=== PATIENT | male | born 1960 | race Caucasian/White ===

== ENCOUNTER → 2017-06-04 | Outpatient (CLI) | payer OTHER ==
--- NOTE | 2017-06-04 10:25 | ECHOF ---
Referral Reason:I50.40 heart failure MEASUREMENTS -------- HEIGHT: 188.0 cm WEIGHT: 120.2 kg BP: RVIDd: 3.8 cm (< 3.3) IVSd: 1.2 cm (0.6 - 1.1) LVIDd: 5.5 cm (3.9 - 5.3) LVPWd: 1.6 cm (0.6 - 1.1) IVSs: 1.4 cm LVIDs: 5.2 cm LVPWs: 1.4 cm LA Diam: 4.3 cm (2.7 - 3.8) LAESV Index (A-L): 37.66 ml/m Ao Diam: 4.4 cm (2.0 - 3.7) AV Cusp: 2.4 cm (1.5 - 2.6) LA Diam: 3.6 cm (2.7 - 3.8) MV EXCURSION: 23.427 mm (> 18.000) MV EF SLOPE: 110 mm/s (70 - 150) EPSS: 0.3 cm MV E Raymundo: 0.56 m/s MV DecT: 190 ms MV A Raymundo: 0.52 m/s MV E/A Ratio: 1.08 RAP: 5.00 mmHg RVSP: 15.10 mmHg FINDINGS -------- Sinus rhythm. This was a technically good study. The left ventricular size is normal. There is mild concentric left ventricular hypertrophy. Overa ll left ventricular systolic function is normal with, an EF between 55 - 60 %. The right ventricle is normal in size. LA is moderately dilated 34-39 ml/m2 The right atrial size is normal. The aortic valve is trileaflet, and appears structurally normal. No aortic stenosis or regurgitation. Mild mitral regurgitation is present. Mild tricuspid regurgitation present. There is no evidence of pulmonary hypertension. The right v entricular systolic pressure, as measured by Doppler, is 15.10mmHg. There is no pulmonic regurgitation present. The aortic root size is normal. There is no pericardial effusion. CONCLUSIONS -------- 1. The left ventricular size is normal. 2. There is mild concentric left ventricular hypertrophy. 3. Overall left ventricular systolic function is normal with, an EF between 55 - 60 %. 4. LA is moderately dilated 34-39 ml/m2 5. The aortic valve is trileaflet, and appears structurally normal. No aortic stenosis or regurgitati on. 6. Mild mitral regurgitation is present. 7. Mild tricuspid regurgitation present. 8. There is no evidence of pulmonary hypertension. 9. The right ventricular systolic pressure, as measured by Doppler, is 15.10mmHg. 10. There is no pulmonic regurgitation present. 11. The aortic root size is normal. 12. There is no pericardial effusion. SERVICE DEPARTMENT MANAGER: Delfina Saldaña RDCS
== END | disposition home or self-care (01) ==
LOC: RADECHMAIN 08:17
DX: I08.1 Rheumatic disorders of both mitral and tricuspid valves (principal); I50.40 Unspecified combined systolic (congestive) and diastolic (congestive) heart failure
CPT/HCPCS: 93306

== ENCOUNTER → 2017-07-13 | Outpatient (CLI) | payer OTHER ==
--- NOTE | 2017-07-13 08:49 | US ---
EXAMINATION TYPE: US mass soft tissue chest/back DATE OF EXAM: 07/13/2017 COMPARISON: NONE CLINICAL HISTORY: E88.2 LIPOMA; Left upper clavicle palpable x months and increasing in size per jt ent. At patient's palpable at left clavicle is oval hypoechoic solid mass = 0.6 x 0.5 x 0.3cm and area is compared to normals right clavicle at same level. IMPRESSION: Solid, avascular 5 mm area corresponding the patient's palpable abnormality seen adjacen t to the left clavicle is of uncertain etiology and could represent an abnormal lymph node or resolvi ng hematoma. CT chest w con could be performed for better anatomic delineation and characterization.
== END | disposition home or self-care (01) ==
LOC: RADUSWWP 08:00
PROVIDERS: ATTEND Physician Assistant Medical
DX: E88.2 Lipomatosis, not elsewhere classified (principal)

== ENCOUNTER → 2017-08-05 | Outpatient (CLI) | payer OTHER ==
--- NOTE | 2017-08-06 07:03 | CT ---
EXAMINATION TYPE: CT chest w con DATE OF EXAM: 08/05/2017 COMPARISON: NONE HISTORY: Lump to left upper chest area. Lipomatosis per order. CT DLP: 636 mGycm Automated exposure control for dose reduction was used. CONTRAST: CT scan of the chest is performed with IV Contrast, patient injected with 100ml mL of Isovue 300. FINDINGS: LUNGS: There is 4 x 2 mm nodule anterolateral right midlung axial image 32. There is 6 x 4 mm calcifi ed right upper lobe nodule axial image 20. No suspicious greater than 5 mm parenchymal nodule or mass is present bilaterally. No suspicious consolidation or groundglass opacity is seen. There is no pleu ral effusion or pneumothorax seen bilaterally. The tracheobronchial tree is patent. MEDIASTINUM: There are no greater than 1 cm hilar or mediastinal lymph nodes. No cardiomegaly or pe ricardial effusion is seen. OTHER: Tiny amount of bilateral gynecomastia is noted. IMPRESSION: No suspicious solid or cystic mass or fluid collection is seen with particular attention to the left upper chest wall at area of clinical concern.
== END | disposition home or self-care (01) ==
LOC: RADCTMAIN 19:08
PROVIDERS: ATTEND Physician Assistant Medical
DX: E88.2 Lipomatosis, not elsewhere classified (principal)
CPT/HCPCS: 71260; Q9967

== ENCOUNTER 2017-08-31 19:25 | Emergency (ER) | payer SELFPAY ==
[2017-08-31 19:45] VITALS: BP 162/83; PULSE 63; RESP 18; TEMP 98.2
--- NOTE | 2017-08-31 20:35 | XR ---
EXAMINATION TYPE: XR finger LT DATE OF EXAM: 08/31/2017 COMPARISON: NONE HISTORY: Laceration injury TECHNIQUE: 3 views FINDINGS: I see no fracture nor dislocation. There is no sign of a foreign body. There is soft tissue laceration deformity at the head of the proximal phalanx of the index finger. IMPRESSION: Laceration deformity. No fracture seen. Mild spurring noted at the IP joints.
--- NOTE | 2017-08-31 21:15 | ED ---
General Adult HPI - General Chief complaint: Wound/Laceration Stated complaint: left finger lac Time Seen by Provider: 08/31/17 20:12 Source: patient, RN notes reviewed Mode of arrival: ambulatory Limitations: no limitations - History of Present Illness Initial comments: 57-year-old male presents to the emergency department for a chief complaint of laceration to the left second digit. Patient was using a hand saw to cut wood when he actually cut his finger. Patient states he can move his finger without difficulty. Patient denies any other injuries. Patient denies hitting his head.Patient has no other complaints at this time including shortness of breath , chest pain, abdominal pain, nausea or vomiting, headache, or visual changes. - Related Data Allergies Allergy/AdvReac Type Severity Reaction Status Date / Time pneumococcal vaccine Allergy Rash/Hives Verified 08/31/17 19:45 Review of Systems ROS Statement: Those systems with pertinent positive or pertinent negative responses have been documented in the HPI. ROS Other: All systems not noted in ROS Statement are negative. Past Medical History Past Medical History: COPD, Hypertension History of Any Multi-Drug Resistant Organisms: None Reported Past Surgical History: Ablation, Orthopedic Surgery Past Psychological History: No Psychological Hx Reported Smoking Status: Former smoker Past Alcohol Use History: None Reported Past Drug Use History: None Reported General Exam Limitations: no limitations General appearance: alert, in no apparent distress Head exam: Present: atraumatic, normocephalic, normal inspection Eye exam: Present: normal appearance, PERRL, EOMI. Absent: scleral icterus, conjunctival injection, periorbital swelling Respiratory exam: Present: normal lung sounds bilaterally. Absent: respiratory distress, wheezes, rales, rhonchi, stridor Cardiovascular Exam: Present: regular rate, normal rhythm, normal heart sounds. Absent: systolic murmur, diastolic murmur, rubs, gallop, clicks Extremities exam: Present: full ROM (Full range of motion of the left second finger including the DIP, PIP, and MCP joints.), normal capillary refill (cap refill less than 2 seconds and radial pulse 2+.), other (Patient has a 2.5 cm laceration extending over the PIP joint and proximal phalanx of the dorsal surface left second finger. All deep structures intact. ). Absent: tenderness (Tenderness to the area of the laceration on the second digit.), pedal edema, joint swelling Course Vital Signs 05/22/18 19:40 Temperature 98.2 F Pulse Rate 63 Respiratory 18 Rate Blood Pressure 162/83 O2 Sat by Pulse 97 Oximetry Procedures - Procedures Initial comment: Body area: Dorsal surface of the left second finger extending from the PIP joint into the proximal phalanx Laceration length: 2.5 cm Foreign bodies: no foreign bodies Tendon involvement: none Nerve involvement: none Vascular damage: no Anesthesia: Digital block Local anesthetic: 4 mL 1% lidocaine Preparation: Patient was prepped and draped in the usual sterile fashion. Irrigation solution: saline Irrigation method:sterile water jet lavage Skin closure:5-0 Ethilon using sterile technique Number of sutures: 7 Technique: interupted Dressing: antibiotic ointment/ gauze Patient tolerance: Patient tolerated the procedure well with no immediate complications. Medical Decision Making - Medical Decision Making 57-year-old male presents to the emergency determine for chief complaint of laceration to the left second digit. On exam there is a 2.5 cm laceration to the dorsal aspect of the left second finger. Patient has full range of motion. Neurovascular intact. Capillary refill less than 2 seconds and radial pulse 2 +. No deep structures affected. X-ray demonstrates no acute fractures or foreign bodies. Nonviable skin was removed. Wound was sutured with 7 sutures. It was covered with bacitracin and gauze. Patient was also given a finger splint for comfort. Tetanus is up-to-date. Patient will return to the emergency department 7-10 days to have sutures removed or earlier if he has any signs of infections or worsening symptoms which were discussed with him. Otherwise, he will follow up with primary care in 1-2 days. Disposition Clinical Impression: Laceration Disposition: HOME SELF-CARE Condition: Good Instructions: Care For Your Stitches (ED), Laceration (ED) Additional Instructions: Please keep area clean. Please monitor for signs of infection. Please return to the emergency department if you have any worsening symptoms. Return in 7-10 days to have sutures removed. Follow up with primary care in 1-2 days. Is patient prescribed a controlled substance at d/c from ED?: No Referrals: [facility],Clinic [Primary Care Provider] - 1-2 days Time of Disposition: 21:14
== END 2017-08-31 21:27 | disposition home or self-care (01) ==
LOC: EC 19:25
DX: S61.211A Laceration without foreign body of left index finger without damage to nail, initial encounter (principal); Z87.891 Personal history of nicotine dependence; Z88.7 Allergy status to serum and vaccine; W27.0XXA Contact with workbench tool, initial encounter; Y93.89 Activity, other specified
CPT/HCPCS: 12001; 99283

== ENCOUNTER 2018-02-01 18:22 | Inpatient (IN) | payer OTHER, MEDICARE ==
--- NOTE | 2018-02-01 19:21 | ED ---
General Adult HPI - General Chief complaint: Weakness Stated complaint: weakness/chest pain/SOB Time Seen by Provider: 02/01/18 18:40 Source: patient, RN notes reviewed Mode of arrival: wheelchair Limitations: no limitations - History of Present Illness Initial comments: This is a 57-year-old male who just had an ablation about 5 days ago at the [facility]. Patient states since then he's been feeling weak and tired in his heart rate is been about 45. Patient states she's also very short of breath. Patient states he has not had a slow heart rate in the past and he brought his vitals with some from multiple few weeks. Patient denies any chest pain but he states there is a squeezing sensation in his chest. Patient denies any recent fever chills or cough per patient denies abdominal pain patient denies nausea vomiting or diarrhea. Patient denies any back pain. Patient denies any lightheadedness or near syncopal episodes. - Related Data Home Medications Medication Instructions Recorded Confirmed ARIPiprazole [Abilify] 10 mg PO DAILY 02/01/18 02/01/18 Aspirin EC [Ecotrin Low Dose] 81 mg PO DAILY 02/01/18 02/01/18 Atenolol [Tenormin] 50 mg PO DAILY 02/01/18 02/01/18 Atorvastatin [Lipitor] 10 mg PO DAILY 02/01/18 02/01/18 Dabigatran [Pradaxa] 150 mg PO BID 02/01/18 02/01/18 Divalproex ER [Depakote ER] 1,000 mg PO HS 02/01/18 02/01/18 Divalproex ER [Depakote ER] 750 mg PO QAM 02/01/18 02/01/18 FLUoxetine HCL [PROzac] 20 mg PO BID 02/01/18 02/01/18 HYDROcodone/APAP 5-325MG [[place] 1 - 2 tab PO Q6HR PRN 02/01/18 02/01/18 5-325] Ibuprofen [Motrin] 600 mg PO Q4HR PRN 02/01/18 02/01/18 Garden Carbonate 600 mg PO HS 02/01/18 02/01/18 Metoprolol Tartrate [Lopressor] 50 mg PO BID 02/01/18 02/01/18 Omeprazole 20 mg PO BID 02/01/18 02/01/18 Warfarin [Coumadin] 5 mg PO SUMOTUWETHSA 02/01/18 02/01/18 Warfarin [Coumadin] 7.5 mg PO FR 02/01/18 02/01/18 buPROPion HCL [Wellbutrin XL] 300 mg PO DAILY 02/01/18 02/01/18 traZODone HCL 150 mg PO HS PRN 02/01/18 02/01/18 Allergies Allergy/AdvReac Type Severity Reaction Status Date / Time pneumococcal vaccine Allergy Swelling Verified 02/01/18 19:13 Review of Systems ROS Statement: Those systems with pertinent positive or pertinent negative responses have been documented in the HPI. ROS Other: All systems not noted in ROS Statement are negative. Past Medical History Past Medical History: Atrial Fibrillation, COPD, Hyperlipidemia, Hypertension History of Any Multi-Drug Resistant Organisms: None Reported Past Surgical History: Ablation, Orthopedic Surgery Additional Past Surgical History / Comment(s): 2nd ablation 01/25/18 Past Psychological History: PTSD Smoking Status: Former smoker Past Alcohol Use History: None Reported Past Drug Use History: None Reported General Exam - General Exam Comments Initial Comments: GENERAL: Patient is well-developed and well-nourished. Patient is nontoxic and well- hydrated and is in no acute distress. ENT: Neck is soft and supple. No significant lymphadenopathy is noted. Oropharynx is clear. Moist mucous membranes. Neck has full range of motion without eliciting any pain. There is no thyroid enlargement and no masses were felt. EYES: The sclera were anicteric and conjunctiva were pink and moist. Extraocular movements were intact and pupils were equal round and reactive to light. Eyelids were unremarkable. PULMONARY: Unlabored respirations. Good breath sounds bilaterally. No audible rales rhonchi or wheezing was noted. CARDIOVASCULAR: Patient is bradycardic at 45 bpm ABDOMEN: Soft and nontender with normal bowel sounds. No palpable organomegaly was noted. There is no palpable pulsatile mass. SKIN: Skin is clear with no lesions or rashes and otherwise unremarkable. NEUROLOGIC: Patient is alert and oriented x3. Cranial nerves II through XII are grossly intact. Motor and sensory are also intact. Normal speech, volume and content. Symmetrical smile. Cerebellar exam grossly intact. MUSCULOSKELETAL: Normal extremities with adequate strength and full range of motion. No lower extremity swelling or edema. No calf tenderness. LYMPHATICS: No significant lymphadenopathy is noted PSYCHIATRIC: Normal psychiatric evaluation. Normal interpersonal interactions appears functionally intact in deals appropriately with others. No signs of depression. No signs of anxiety. No delusions. No hallucinations. Limitations: no limitations Course Vital Signs 02/01/18 02/01/18 18:39 18:55 Temperature 98.2 F Pulse Rate 44 L Pulse Rate [ 45 L Billing Checker ] Respiratory 18 Rate Blood Pressure 144/79 O2 Sat by Pulse 95 Oximetry Medical Decision Making - Medical Decision Making EKG shows sinus bradycardia at 45 bpm MO interval 112 QRS is 92 QT interval is 44 QTC is 418. Patient's EKG shows no ST segment elevation or T wave abnormalities are noted. Chest x-ray shows bilateral pleural effusions and a little bit of congestion. Patient's heart rate remained in the low 40s throughout his stay. I spoke with the nurse practitioner for Dr. Westbrook she agreed to admit the patient admitted the patient wrote admitting orders. - Lab Data Result diagrams: 02/01/18 18:50 02/01/18 18:50 Lab Results 02/01/18 02/01/18 02/01/18 Range/Units 18:50 18:50 18:50 WBC 5.7 (3.8-10.6) k/uL RBC 4.40 (4.30-5.90) m/uL Hgb 12.9 L (13.0-17.5) gm/dL Hct 40.8 (39.0-53.0) % MCV 92.7 (80.0-100.0) fL MCH 29.3 (25.0-35.0) pg MCHC 31.6 (31.0-37.0) g/dL RDW 12.9 (11.5-15.5) % Plt Count 161 (150-450) k/uL Neutrophils % 50 % Lymphocytes % 36 % Monocytes % 9 % Eosinophils % 1 % Basophils % 1 % Neutrophils # 2.9 (1.3-7.7) k/uL Lymphocytes # 2.1 (1.0-4.8) k/uL Monocytes # 0.5 (0-1.0) k/uL Eosinophils # 0.1 (0-0.7) k/uL Basophils # 0.0 (0-0.2) k/uL PT (9.0-12.0) sec INR (<1.2) APTT (22.0-30.0) sec Sodium 141 (137-145) mmol/L Potassium 4.5 (3.5-5.1) mmol/L Chloride 107 (98-107) mmol/L Carbon Dioxide 28 (22-30) mmol/L Anion Gap 6 mmol/L BUN 17 (9-20) mg/dL Creatinine 0.98 (0.66-1.25) mg/dL Est GFR (CKD-EPI)AfAm >90 (>60 ml/min/1.73 sqM) Est GFR (CKD-EPI)NonAf 86 (>60 ml/min/1.73 sqM) Glucose 86 (74-99) mg/dL Calcium 9.2 (8.4-10.2) mg/dL Magnesium 2.1 (1.6-2.3) mg/dL Total Bilirubin 0.8 (0.2-1.3) mg/dL AST 17 (17-59) U/L ALT 17 L (21-72) U/L Alkaline Phosphatase 74 (38-126) U/L Total Creatine Kinase 92 (55-170) U/L CK-MB (CK-2) 1.3 (0.0-2.4) ng/mL CK-MB (CK-2) Rel Index 1.4 Troponin I 0.032 (0.000-0.034) ng/mL Total Protein 7.0 (6.3-8.2) g/dL Albumin 3.7 (3.5-5.0) g/dL TSH 3.710 (0.465-4.680) mIU/L Free T4 1.43 (0.78-2.19) ng/dL 02/01/18 Range/Units 18:50 WBC (3.8-10.6) k/uL RBC (4.30-5.90) m/uL Hgb (13.0-17.5) gm/dL Hct (39.0-53.0) % MCV (80.0-100.0) fL MCH (25.0-35.0) pg MCHC (31.0-37.0) g/dL RDW (11.5-15.5) % Plt Count (150-450) k/uL Neutrophils % % Lymphocytes % % Monocytes % % Eosinophils % % Basophils % % Neutrophils # (1.3-7.7) k/uL Lymphocytes # (1.0-4.8) k/uL Monocytes # (0-1.0) k/uL Eosinophils # (0-0.7) k/uL Basophils # (0-0.2) k/uL PT 11.4 (9.0-12.0) sec INR 1.2 H (<1.2) APTT 29.4 (22.0-30.0) sec Sodium (137-145) mmol/L Potassium (3.5-5.1) mmol/L Chloride (98-107) mmol/L Carbon Dioxide (22-30) mmol/L Anion Gap mmol/L BUN (9-20) mg/dL Creatinine (0.66-1.25) mg/dL Est GFR (CKD-EPI)AfAm (>60 ml/min/1.73 sqM) Est GFR (CKD-EPI)NonAf (>60 ml/min/1.73 sqM) Glucose (74-99) mg/dL Calcium (8.4-10.2) mg/dL Magnesium (1.6-2.3) mg/dL Total Bilirubin (0.2-1.3) mg/dL AST (17-59) U/L ALT (21-72) U/L Alkaline Phosphatase (38-126) U/L Total Creatine Kinase (55-170) U/L CK-MB (CK-2) (0.0-2.4) ng/mL CK-MB (CK-2) Rel Index Troponin I (0.000-0.034) ng/mL Total Protein (6.3-8.2) g/dL Albumin (3.5-5.0) g/dL TSH (0.465-4.680) mIU/L Free T4 (0.78-2.19) ng/dL Disposition Clinical Impression: Dyspnea, Bradycardia, Bilateral pleural effusion Disposition: ADMITTED IP TO THIS HOSP Referrals: [facility],Clinic [Primary Care Provider] - 1-2 days Time of Disposition: 20:47
[2018-02-01 19:35] LABS: Basophils % (A) 1 %; Eosinophils # (A) 0.1 k/uL (0-0.7); Eosinophils % (A) 1 %; HCT 40.8 % (39.0-53.0); HGB 12.9 gm/dL (13.0-17.5); Lymphocytes # (A) 2.1 k/uL (1.0-4.8); Lymphocytes % (A) 36 %; MCH 29.3 pg (25.0-35.0); MCHC 31.6 g/dL (31.0-37.0); MCV 92.7 fL (80.0-100.0); Monocytes # (A) 0.5 k/uL (0-1.0); Monocytes % (A) 9 %; Neutrophils # (A) 2.9 k/uL (1.3-7.7); Neutrophils % (A) 50 %; Platelet Count 161 k/uL (150-450); RDW 12.9 % (11.5-15.5); WBC 5.7 k/uL (3.8-10.6)
[2018-02-01 19:48] LABS: INR 1.2 (<1.2); Partial Thromboplastin Time 29.4 sec (22.0-30.0); Prothrombin Time 11.4 sec (9.0-12.0)
[2018-02-01 19:49] LABS: ALT 17 U/L (21-72); AST 17 U/L (17-59); Albumin 3.7 g/dL (3.5-5.0); Alkaline Phosphatase 74 U/L (38-126); Anion Gap 6 mmol/L; Blood Urea Nitrogen 17 mg/dL (9-20); Calcium 9.2 mg/dL (8.4-10.2); Carbon Dioxide 28 mmol/L (22-30); Chloride 107 mmol/L (98-107); Glucose 86 mg/dL (74-99); Magnesium 2.1 mg/dL (1.6-2.3); Potassium 4.5 mmol/L (3.5-5.1); Sodium 141 mmol/L (137-145); Total Bilirubin 0.8 mg/dL (0.2-1.3)
[2018-02-01 20:01] LABS: Creatine Kinase MB 1.3 ng/mL (0.0-2.4); Troponin I 0.032 ng/mL (0.000-0.034)
[2018-02-01 20:07] LABS: T4, Free (Free Thyroxine) 1.43 ng/dL (0.78-2.19)
--- NOTE | 2018-02-01 20:57 | XR ---
EXAMINATION: XR chest 2V DATE AND TIME: 02/01/2018 7:43 PM CLINICAL INDICATION: dysrhythmia TECHNIQUE: PA and lateral COMPARISON: None. FINDINGS: The pulmonary vasculature is silhouetted bilaterally by a fine reticular pattern of increas ed density, with a few scattered zones of coalescent opacity in the lung bases. At the periphery of t he lung bases there are septal lines evident bilaterally. [id number] pleural effusions are not ed bilaterally. Cardiac silhouette mildly enlarged. Aortic ectasia also noted. There are no abnormal gas collections. No acute bone or soft tissue IMPRESSION: Radiographic findings are consistent with cardiogenic interstitial and alveolar phase pulmonary edema with small bilateral pleural effusions.
[2018-02-01] MEDS: FUROSEMIDE 10 MG/ML 4 ML VIAL IV SCH (21:34)
[2018-02-01 22:20] LABS: Glucose,Whole Blood 94 mg/dL (75-99)
[2018-02-01] MEDS ORDERED: ACETAMINOPHEN TAB 500 MG TAB PO PRN (23:05)
[2018-02-02] MEDS: HYDROcodone/APAP 5-325MG 1 EACH TAB PO PRN ×4 (05:38→20:56)
--- NOTE | 2018-02-02 07:48 | P.CRDCN ---
History of Present Illness Consult date: 02/02/18 Chief complaint: weakness History of present illness: This is a pleasant 57-year-old gentleman with a past medical history significant for paroxysmal atrial fibrillation as well as hypertension and dyslipidemia presented to the emergency room complaining of feeling weak and tired. The patient just underwent an atrial fibrillation ablation 5 days ago at the [facility]. The atrial fibrillation ablation was successful this time and the patient was discharged in normal sinus rhythm. He did undergo an atrial fibrillation ablation a year ago according to him at the [facility] in [place] which was unsuccessful. The patient was discharged from the hospital in stable medical condition presented to the emergency room here complaining of feeling weak and tired. He has been tracking his blood pressure and heart rate at home for the last 5 days after he was discharged and his heart rate has been in the 40s. The patient was feeling dizzy, feeling weak, and tired. No loss of consciousness. No chest pain or chest discomfort. Beside that he was feeling short of breath with exertion and for the last 48 hours he was having shortness of breath laying flat in bed. He stated that his legs get swollen sometimes. He is not sure if he gained any weight. The patient is not aware of any prior history of coronary artery disease or congestive heart failure beside the paroxysmal atrial fibrillation. He does have hypertension and dyslipidemia. When he presented to the emergency room, the EKG showed sinus bradycardia with heart rate in the 40s. Please note that the patient was receiving metoprolol 50 mg by mouth twice a day. The metoprolol is on hold at this point. The current heart rate in the ICU is in the 50s at this point. The TSH was checked and free T4 was checked and both came in to be unremarkable. The chest x-ray showed findings consistent with pulmonary edema. Clinically the patient seems to be like he is in heart failure beside symptomatic bradycardia. No BMP was checked on the patient at this point. The patient was given IV Lasix at 1 dose in the ER and he diuresed significantly with significant urine output. Past Medical History Past Medical History: Atrial Fibrillation, COPD, Hyperlipidemia, Hypertension History of Any Multi-Drug Resistant Organisms: None Reported Past Surgical History: Ablation, Orthopedic Surgery Additional Past Surgical History / Comment(s): 2nd ablation 01/25/18 Past Anesthesia/Blood Transfusion Reactions: No Reported Reaction Past Psychological History: Depression, PTSD Smoking Status: Former smoker Past Alcohol Use History: None Reported Past Drug Use History: None Reported - Past Family History Mother Family Medical History: Thyroid Disorder Additional Family Medical History / Comment(s): thyroid cancer Father Family Medical History: AFIB, Congestive Heart Failure (CHF), CVA/TIA, Hypertension Medications and Allergies Home Medications Medication Instructions Recorded Confirmed Type ARIPiprazole [Abilify] 10 mg PO DAILY 02/01/18 02/01/18 History Aspirin EC [Ecotrin Low Dose] 81 mg PO DAILY 02/01/18 02/01/18 History Atorvastatin [Lipitor] 10 mg PO DAILY 02/01/18 02/01/18 History Dabigatran [Pradaxa] 150 mg PO BID 02/01/18 02/01/18 History Divalproex ER [Depakote ER] 1,000 mg PO HS 02/01/18 02/01/18 History Divalproex ER [Depakote ER] 750 mg PO QAM 02/01/18 02/01/18 History FLUoxetine HCL [PROzac] 20 mg PO BID 02/01/18 02/01/18 History HYDROcodone/APAP 5-325MG [[place] 1 - 2 tab PO Q6HR PRN 02/01/18 02/01/18 History 5-325] Ibuprofen [Motrin] 600 mg PO Q4HR PRN 02/01/18 02/01/18 History Metoprolol Tartrate [Lopressor] 50 mg PO BID 02/01/18 02/01/18 History Omeprazole 20 mg PO BID 02/01/18 02/01/18 History traZODone HCL 150 mg PO HS PRN 02/01/18 02/01/18 History Allergies Allergy/AdvReac Type Severity Reaction Status Date / Time pneumococcal vaccine Allergy Swelling Verified 02/01/18 19:13 Physical Exam Vitals: Vital Signs Temp Pulse Pulse Resp BP Pulse Ox 02/02/18 04:00 97.9 F 51 L 12 142/81 92 L 02/02/18 02:00 48 L 14 124/73 92 L 02/02/18 00:00 49 L 21 153/90 92 L 02/01/18 23:00 98.4 F 47 L 20 149/92 92 L 02/01/18 21:30 98.1 F 44 L 18 148/92 96 02/01/18 20:50 50 L 17 134/89 6 L 02/01/18 19:36 19 144/79 94 L 02/01/18 18:55 45 L 02/01/18 18:39 98.2 F 44 L 18 144/79 95 Intake and Output 02/01/18 02/02/18 02/02/18 22:59 06:59 14:59 Intake Total 240 Output Total 1225 Balance -985 Intake: Oral 240 Output: Urine 1225 Other: Weight 120.6 kg 121.2 kg - Constitutional General appearance: no acute distress - Respiratory Respiratory: bilateral: CTA - Cardiovascular Rhythm: regular Heart sounds: normal: S1, S2 Results 02/01/18 18:50 02/01/18 18:50 Cardiac Enzymes 02/01/18 02/01/18 Range/Units 18:50 18:50 AST 17 (17-59) U/L CK-MB (CK-2) 1.3 (0.0-2.4) ng/mL Troponin I 0.032 (0.000-0.034) ng/mL Coagulation 02/01/18 Range/Units 18:50 PT 11.4 (9.0-12.0) sec APTT 29.4 (22.0-30.0) sec CBC 02/01/18 Range/Units 18:50 WBC 5.7 (3.8-10.6) k/uL RBC 4.40 (4.30-5.90) m/uL Hgb 12.9 L (13.0-17.5) gm/dL Hct 40.8 (39.0-53.0) % Plt Count 161 (150-450) k/uL Comprehensive Metabolic Panel 02/01/18 Range/Units 18:50 Sodium 141 (137-145) mmol/L Potassium 4.5 (3.5-5.1) mmol/L Chloride 107 (98-107) mmol/L Carbon Dioxide 28 (22-30) mmol/L BUN 17 (9-20) mg/dL Creatinine 0.98 (0.66-1.25) mg/dL Glucose 86 (74-99) mg/dL Calcium 9.2 (8.4-10.2) mg/dL AST 17 (17-59) U/L ALT 17 L (21-72) U/L Alkaline Phosphatase 74 (38-126) U/L Total Protein 7.0 (6.3-8.2) g/dL Albumin 3.7 (3.5-5.0) g/dL Current Medications Generic Name Dose Route Start Last Admin Trade Name Moe PRN Reason Stop Dose Admin Acetaminophen 1,000 mg 02/01/18 23:05 02/02/18 03:39 Tylenol Tab PO 1,000 mg Q6HR PRN Administration Fever and/ or Pain Hydrocodone Bitart/Acetaminophen 1 each 02/02/18 05:23 [place] 5-325 PO Q4HR PRN Mild to Moderate Pain Hydrocodone Bitart/Acetaminophen 2 each 02/02/18 05:23 02/02/18 05:38 [place] 5-325 PO 2 each Q4HR PRN Administration Moderate to Severe Pain Furosemide 40 mg 02/01/18 21:00 02/01/18 21:34 Lasix IV 40 mg Q12H CIRA Administration Intake and Output 02/01/18 02/02/18 02/02/18 22:59 06:59 14:59 Intake Total 240 Output Total 1225 Balance -985 Intake: Oral 240 Output: Urine 1225 Other: Weight 120.6 kg 121.2 kg 02/01/18 18:50 02/01/18 18:50 Assessment and Plan Assessment: Assessment #1 symptomatic bradycardia which has slightly improved #2 paroxysmal atrial fibrillation. The patient has been maintaining normal sinus rhythm. #3 status post atrial fibrillation ablation #4 congestive heart failure exacerbation, seems to be mild, unknown if it's because of systolic or diastole dysfunction #5 hypertension Plan #1 agree about continue holding the metoprolol at this point. #2 thyroid dysfunction was ruled out. The TSH and free T4 are within normal limits #3 I would start the patient on IV Lasix may be at 20 mg twice a day #4 continue monitor the kidney function and electrolytes #5 monitor the urine output as well as the weight #6 obtain an echocardiogram was Doppler #7 follow-up with the patient. Thank you for allowing us participate in his care and we will continue following up with the pain
[2018-02-02] MEDS: FUROSEMIDE 10 MG/ML 4 ML VIAL IV SCH ×2 (08:32→20:57)
[2018-02-02] MEDS ORDERED: HYDROcodone/APAP 5-325MG 1 EACH TAB PO PRN (11:29)
[2018-02-02] MEDS: FLUoxetine HCL 20 MG CAP PO SCH ×2 (11:53→20:59)
[2018-02-02] MEDS: DIVALPROEX ER 250 MG TAB.ER.24H PO SCH (11:53)
[2018-02-02] MEDS: PANTOPRAZOLE 40 MG TABLET PO SCH (11:53)
[2018-02-02] MEDS: ARIPiprazole 10 MG TAB PO SCH (11:53)
--- NOTE | 2018-02-02 12:05 | ECHOF ---
Referral Reason:chf MEASUREMENTS -------- HEIGHT: 193.0 cm WEIGHT: 121.1 kg BP: 142/81 RVIDd: 4.3 cm (< 3.3) IVSd: 1.2 cm (0.6 - 1.1) LVIDd: 5.4 cm (3.9 - 5.3) LVPWd: 1.1 cm (0.6 - 1.1) IVSs: 1.7 cm LVIDs: 3.7 cm LVPWs: 1.8 cm LA Diam: 4.1 cm (2.7 - 3.8) LAESV Index (A-L): 46.99 ml/m Ao Diam: 3.8 cm (2.0 - 3.7) AV Cusp: 2.4 cm (1.5 - 2.6) EPSS: 0.4 cm MV E Raymundo: 1.11 m/s MV DecT: 206 ms MV A Raymundo: 0.35 m/s MV E/A Ratio: 3.19 RAP: 5.00 mmHg RVSP: 45.64 mmHg MV EF SLOPE: 117.85 mm/s (70 - 150) MV EXCURSION: 1.32 cm (> 18.000) FINDINGS -------- Sinus rhythm. This was a technically good study. The left ventricular size is normal. There is borderline concentric left ventricular hypertrophy. Overall left ventricular systolic function is normal with, an EF between 55 - 60 %. The right ventricle is severely enlarged. LA is severely dilated >40 ml/m2 The right atrium is normal in size. There is mild aortic valve sclerosis. Trace to mild aortic regurgitation. The mitral valve leaflets are mildly thickened. Mild mitral regurgitation is present. Mild tricuspid regurgitation present. There is mild to moderate pulmonary hypertension. The right ventricular systolic pressure, as measured by Doppler, is 45.64mmHg. Trace/mild (physiologic) pulmonic regurgitation. The aortic root is dilated measuring 3.8cm. Normal inferior vena cava with normal inspiratory collapse consistent with estimated right atrial pre ssure of 5 mmHg. The inferior vena cava is mildly dilated. There is no pericardial effusion. CONCLUSIONS -------- 1. Sinus rhythm. 2. This was a technically good study. 3. The left ventricular size is normal. 4. There is borderline concentric left ventricular hypertrophy. 5. Overall left ventricular systolic function is normal with, an EF between 55 - 60 %. 6. The right ventricle is severely enlarged. 7. LA is severely dilated >40 ml/m2 8. The right atrium is normal in size. 9. There is mild aortic valve sclerosis. 10. Trace to mild aortic regurgitation. 11. The mitral valve leaflets are mildly thickened. 12. Mild mitral regurgitation is present. 13. Mild tricuspid regurgitation present. 14. There is mild to moderate pulmonary hypertension. 15. The right ventricular systolic pressure, as measured by Doppler, is 45.64mmHg. 16. Trace/mild (physiologic) pulmonic regurgitation. 17. The aortic root is dilated measuring 3.8cm. 18. Normal inferior vena cava with normal inspiratory collapse consistent with estimated right atrial pressure of 5 mmHg. 19. The inferior vena cava is mildly dilated. 20. There is no pericardial effusion. [employer]: DORINDA Jimenez
[2018-02-02 13:25] VITALS: BMI 32.5
--- NOTE | 2018-02-02 14:38 | P.HPIM ---
History of Present Illness 57-year-old gentleman with history of proximal atrial fibrillation underwent ration procedure in the past came in with symptoms of shortness of breath has been going on for last 4-5 days along with orthopnea or paroxysmal nocturnal dyspnea and patient is found to have heart rate of in 40s patient is on beta travis for atrial fibrillation which is being held at this time patient doesn' t have significant bilateral pedal edema but does have crackles on lung exam along with bilateral pulmonary edema on the chest x-ray with bilateral pleural effusions. Patient denied any fever chills cough runny nose. Patient was given a dose of Lasix with improvement in some of his symptoms TSH and T4 are being obtained patient is being admitted for symptomatic bradycardia secondary to beta blockers which are being held and patient is on IV Lasix at this point of time his previous echocardiogram showed normal ejection fraction. Cardiology was consulted. Review of Systems REVIEW OF SYSTEMS: CONSTITUTIONAL: No fever, no malaise, no fatigue. HEENT: No recent visual problems or hearing problems. Denied any sore throat. CARDIOVASCULAR: no palpitations, no syncope. PULMONARY: No shortness of breath, no cough, no hemoptysis. GASTROINTESTINAL: No diarrhea, no nausea, no vomiting, no abdominal pain. Normoactive bowel sounds. NEUROLOGICAL: No headaches, no weakness, no numbness. HEMATOLOGICAL: Denies any bleeding or petechiae. GENITOURINARY: Denies any burning micturition, frequency, or urgency. MUSCULOSKELETAL/RHEUMATOLOGICAL: Denies any joint pain, swelling, or any muscle pain. ENDOCRINE: Denies any polyuria or polydipsia. The rest of the 14-point review of systems is negative. Past Medical History Past Medical History: Atrial Fibrillation, COPD, Hyperlipidemia, Hypertension History of Any Multi-Drug Resistant Organisms: None Reported Past Surgical History: Ablation, Orthopedic Surgery Additional Past Surgical History / Comment(s): 2nd ablation 01/25/18 Past Anesthesia/Blood Transfusion Reactions: No Reported Reaction Past Psychological History: Depression, PTSD Smoking Status: Former smoker Past Alcohol Use History: None Reported Past Drug Use History: None Reported - Past Family History Mother Family Medical History: Thyroid Disorder Additional Family Medical History / Comment(s): thyroid cancer Father Family Medical History: AFIB, Congestive Heart Failure (CHF), CVA/TIA, Hypertension Medications and Allergies Home Medications Medication Instructions Recorded Confirmed Type ARIPiprazole [Abilify] 10 mg PO DAILY 10/23/18 10/23/18 History Aspirin EC [Ecotrin Low Dose] 81 mg PO DAILY 02/01/18 02/01/18 History Atorvastatin [Lipitor] 10 mg PO DAILY 02/01/18 02/01/18 History Dabigatran [Pradaxa] 150 mg PO BID 02/01/18 02/01/18 History Divalproex ER [Depakote ER] 1,000 mg PO HS 02/01/18 02/01/18 History Divalproex ER [Depakote ER] 750 mg PO QAM 02/01/18 02/01/18 History FLUoxetine HCL [PROzac] 20 mg PO BID 02/01/18 02/01/18 History HYDROcodone/APAP 5-325MG [[place] 1 - 2 tab PO Q6HR PRN 02/01/18 02/01/18 History 5-325] Ibuprofen [Motrin] 600 mg PO Q4HR PRN 02/01/18 02/01/18 History Metoprolol Tartrate [Lopressor] 50 mg PO BID 02/01/18 02/01/18 History Omeprazole 20 mg PO BID 02/01/18 02/01/18 History traZODone HCL 150 mg PO HS PRN 02/01/18 02/01/18 History Allergies Allergy/AdvReac Type Severity Reaction Status Date / Time pneumococcal vaccine Allergy Swelling Verified 02/01/18 19:13 Physical Exam Vitals: Vital Signs Temp Pulse Pulse Resp BP Pulse Ox 02/02/18 12:00 97.7 F 49 L 13 130/86 94 L 02/02/18 11:00 45 L 15 119/92 90 L 02/02/18 08:00 97.2 F L 52 L 12 136/88 92 L 02/02/18 04:00 97.9 F 51 L 12 142/81 92 L 02/02/18 02:00 48 L 14 124/73 92 L 02/02/18 00:00 49 L 21 153/90 92 L 02/01/18 23:00 98.4 F 47 L 20 149/92 92 L 02/01/18 21:30 98.1 F 44 L 18 148/92 96 02/01/18 20:50 50 L 17 134/89 6 L 02/01/18 19:36 19 144/79 94 L 02/01/18 18:55 45 L 02/01/18 18:39 98.2 F 44 L 18 144/79 95 Intake and Output 02/01/18 02/02/18 02/02/18 22:59 06:59 14:59 Intake Total 240 Output Total 1725 3050 Balance -1485 -3050 Intake: Oral 240 Output: Urine 1725 3050 Other: Voiding Method Urinal # Bowel Movements 1 Weight 120.6 kg 121.2 kg 121.2 kg PHYSICAL EXAMINATION: GENERAL: The patient is alert and oriented x3, not in any acute distress. Well developed, well nourished. HEENT: Pupils are round and equally reacting to light. EOMI. No scleral icterus. No conjunctival pallor. Normocephalic, atraumatic. No pharyngeal erythema. No thyromegaly. CARDIOVASCULAR: S1 and S2 present. No murmurs, rubs, or gallops. PULMONARY: Chest is clear to auscultation, no wheezing or crackles. ABDOMEN: Soft, nontender, nondistended, normoactive bowel sounds. No palpable organomegaly. MUSCULOSKELETAL: No joint swelling or deformity. EXTREMITIES: No cyanosis, clubbing, or pedal edema. NEUROLOGICAL: Gross neurological examination did not reveal any focal deficits. SKIN: No rashes. Results CBC & Chem 7: 02/01/18 18:50 02/01/18 18:50 Labs: Abnormal Lab Results - Last 24 Hours (Table) 02/01/18 02/01/18 02/01/18 Range/Units 18:50 18:50 18:50 Hgb 12.9 L (13.0-17.5) gm/dL INR 1.2 H (<1.2) ALT 17 L (21-72) U/L Thrombosis Risk Factor Assmnt - Choose All That Apply Any of the Below Risk Factors Present?: Yes Each Factor Represents 1 point: Abnormal pulmonary function (COPD), Age 41-60 years, Obesity (BMI >25) Other Risk Factors: No Other congenital or acquired thrombophilia - If yes, enter type in comment: No Thrombosis Risk Factor Assessment Total Risk Factor Score: 3 Thrombosis Risk Factor Assessment Level: Moderate Risk Assessment and Plan Plan: -Symptomatic bradycardia: Holding off on beta travis patient will probably require low-dose of beta travis eventually. -Atrial fibrillation with ablation procedures in the past presently in normal sinus rhythm patient probably had proximal atrial fibrillation. -Congestive heart failure, unknown whether patient has systolic dysfunction and diastolic dysfunction is previous ejection fraction is within normal limits patient is in acute exacerbation patient is receiving IV Lasix -Hypertension -COPD without any acute exacerbation -Hyperlipidemia
[2018-02-02] MEDS: LORATADINE 10 MG TAB PO SCH (18:48)
[2018-02-02] MEDS: DIVALPROEX ER 500 MG TAB.ER.24H PO SCH (20:57)
[2018-02-02] MEDS: DABIGATRAN 150 MG CAP PO SCH (20:59)
[2018-02-03] MEDS: HYDROcodone/APAP 5-325MG 1 EACH TAB PO PRN ×5 (01:44→19:46)
[2018-02-03 04:49] LABS: HCT 44.3 % (39.0-53.0); HGB 14.9 gm/dL (13.0-17.5); MCH 30.6 pg (25.0-35.0); MCHC 33.6 g/dL (31.0-37.0); Mean Platelet Volume 7.5; Platelet Count 196 k/uL (150-450); RBC 4.86 m/uL (4.30-5.90); RDW 12.8 % (11.5-15.5); WBC 6.6 k/uL (3.8-10.6)
[2018-02-03 04:58] LABS: INR 1.1 (<1.2); Partial Thromboplastin Time 26.1 sec (22.0-30.0); Prothrombin Time 11.1 sec (9.0-12.0)
[2018-02-03 05:13] LABS: Anion Gap 11 mmol/L; Blood Urea Nitrogen 22 mg/dL (9-20); Calcium 9.7 mg/dL (8.4-10.2); Carbon Dioxide 28 mmol/L (22-30); Chloride 101 mmol/L (98-107); Glucose 112 mg/dL (74-99); Magnesium 2.2 mg/dL (1.6-2.3); Potassium 3.8 mmol/L (3.5-5.1); Sodium 140 mmol/L (137-145)
--- NOTE | 2018-02-03 07:16 | P.PN ---
Subjective Progress Note Date: 02/03/18 Principal diagnosis: Symptomatic bradycardia/congestive heart failure This is a pleasant 57-year-old gentleman with a past medical history significant for paroxysmal atrial fibrillation as well as hypertension and dyslipidemia presented to the emergency room complaining of feeling weak and tired. The patient just underwent an atrial fibrillation ablation 5 days ago at the [facility]. The atrial fibrillation ablation was successful this time and the patient was discharged in normal sinus rhythm. He did undergo an atrial fibrillation ablation a year ago according to him at the [place] in [place] which was unsuccessful. The patient was discharged from the hospital in stable medical condition presented to the emergency room here complaining of feeling weak and tired. He has been tracking his blood pressure and heart rate at home for the last 5 days after he was discharged and his heart rate has been in the 40s. The patient was feeling dizzy, feeling weak, and tired. No loss of consciousness. No chest pain or chest discomfort. Beside that he was feeling short of breath with exertion and for the last 48 hours he was having shortness of breath laying flat in bed. He stated that his legs get swollen sometimes. He is not sure if he gained any weight. The patient is not aware of any prior history of coronary artery disease or congestive heart failure beside the paroxysmal atrial fibrillation. He does have hypertension and dyslipidemia. When he presented to the emergency room, the EKG showed sinus bradycardia with heart rate in the 40s. Please note that the patient was receiving metoprolol 50 mg by mouth twice a day. The metoprolol is on hold at this point. The current heart rate in the ICU is in the 50s at this point. The TSH was checked and free T4 was checked and both came in to be unremarkable. The chest x-ray showed findings consistent with pulmonary edema. Clinically the patient seems to be like he is in heart failure beside symptomatic bradycardia. No BMP was checked on the patient at this point. The patient was given IV Lasix at 1 dose in the ER and he diuresed significantly with significant urine output. On follow-up with the patient today, February [id number], he is feeling overall better. He has been maintaining normal sinus rhythm with a heart rate in the 40s and 50s. Metoprolol continues to be on hold. He continues to be on IV Lasix and he has been putting good amount of urine. The echocardiogram was performed and revealed normal LV function with mild MR, mild TR, and mild pulmonary hypertension. I am going to add a small dose of calcium channel travis with Norvasc hopefully I can trigger sinus tachycardia Objective - Vital Signs Vital signs: Vital Signs Temp 97.9 F 02/03/18 04:00 Pulse 48 L 02/03/18 04:00 Resp 12 02/03/18 04:00 BP 147/68 02/03/18 04:00 Pulse Ox 95 02/03/18 04:00 Intake & Output 02/02/18 02/03/18 02/03/18 18:59 06:59 18:59 Intake Total 40 Output Total 3400 1720 Balance -3400 -1680 Weight 121.2 kg 116 kg Intake: Oral 40 Output: Urine 3400 1720 Other: Voiding Method Urinal Urinal # Bowel Movements 1 1 - Constitutional General appearance: Present: no acute distress - Respiratory Respiratory: bilateral: CTA - Cardiovascular Rhythm: regular Heart sounds: normal: S1, S2 - Labs CBC & Chem 7: 02/03/18 04:30 02/03/18 04:30 Labs: Abnormal Lab Results - Last 24 Hours (Table) 02/03/18 Range/Units 04:30 BUN 22 H (9-20) mg/dL Glucose 112 H (74-99) mg/dL Assessment and Plan Assessment: Assessment #1 symptomatic bradycardia which has slightly improved #2 paroxysmal atrial fibrillation. The patient has been maintaining normal sinus rhythm. #3 status post atrial fibrillation ablation #4 congestive heart failure exacerbation, seems to be mild, unknown if it's because of systolic or diastole dysfunction #5 hypertension Plan #1 continue holding the metoprolol at this point. #2 thyroid dysfunction was ruled out. The TSH and free T4 are within normal limits #3 continue IV Lasix for additional 24 hours #4 continue monitor the kidney function and electrolytes #5 monitor the urine output as well as the weight #6 add calcium channel travis with Norvasc #7 follow-up with the patient. Thank you for allowing us participate in his care and we will continue following up with the pain
[2018-02-03] MEDS: ARIPiprazole 10 MG TAB PO SCH (09:05)
[2018-02-03] MEDS: amLODIPine 2.5 MG TAB PO SCH (09:05)
[2018-02-03] MEDS: ASPIRIN 81 MG PO SCH (09:05)
[2018-02-03] MEDS: ATORVASTATIN 10 MG TAB PO SCH (09:06)
[2018-02-03] MEDS: DABIGATRAN 150 MG CAP PO SCH ×2 (09:07→20:50)
[2018-02-03] MEDS: LORATADINE 10 MG TAB PO SCH (09:09)
[2018-02-03] MEDS: PANTOPRAZOLE 40 MG TABLET PO SCH (09:09)
[2018-02-03] MEDS: FLUoxetine HCL 20 MG CAP PO SCH ×2 (09:09→20:51)
[2018-02-03] MEDS: DIVALPROEX ER 250 MG TAB.ER.24H PO SCH (09:09)
[2018-02-03] MEDS: FUROSEMIDE 10 MG/ML 4 ML VIAL IV SCH ×2 (09:11→20:51)
[2018-02-03] MEDS: DIVALPROEX ER 500 MG TAB.ER.24H PO SCH (20:50)
[2018-02-04] MEDS: HYDROcodone/APAP 5-325MG 1 EACH TAB PO PRN ×3 (00:06→08:34)
[2018-02-04 04:15] VITALS: TEMP 97.5
[2018-02-04 04:53] LABS: HCT 47.8 % (39.0-53.0); MCH 30.6 pg (25.0-35.0); MCHC 33.4 g/dL (31.0-37.0); MCV 91.4 fL (80.0-100.0); Mean Platelet Volume 7.2; Platelet Count 217 k/uL (150-450); RBC 5.23 m/uL (4.30-5.90); RDW 12.9 % (11.5-15.5); WBC 6.7 k/uL (3.8-10.6)
[2018-02-04 05:03] LABS: Anion Gap 11 mmol/L; Blood Urea Nitrogen 23 mg/dL (9-20); Calcium 9.7 mg/dL (8.4-10.2); Carbon Dioxide 28 mmol/L (22-30); Chloride 101 mmol/L (98-107); Glucose 109 mg/dL (74-99); Magnesium 2.1 mg/dL (1.6-2.3); Potassium 4.1 mmol/L (3.5-5.1); Sodium 140 mmol/L (137-145)
[2018-02-04 05:06] LABS: INR 1.2 (<1.2); Partial Thromboplastin Time 27.7 sec (22.0-30.0); Prothrombin Time 11.5 sec (9.0-12.0)
--- NOTE | 2018-02-04 07:55 | P.PN ---
Subjective Progress Note Date: 02/04/18 Principal diagnosis: Symptomatic bradycardia/congestive heart failure This is a pleasant 57-year-old gentleman with a past medical history significant for paroxysmal atrial fibrillation as well as hypertension and dyslipidemia presented to the emergency room complaining of feeling weak and tired. The patient just underwent an atrial fibrillation ablation 5 days ago at the [facility]. The atrial fibrillation ablation was successful this time and the patient was discharged in normal sinus rhythm. He did undergo an atrial fibrillation ablation a year ago according to him at the [facility] in [place] which was unsuccessful. The patient was discharged from the hospital in stable medical condition presented to the emergency room here complaining of feeling weak and tired. He has been tracking his blood pressure and heart rate at home for the last 5 days after he was discharged and his heart rate has been in the 40s. The patient was feeling dizzy, feeling weak, and tired. No loss of consciousness. No chest pain or chest discomfort. Beside that he was feeling short of breath with exertion and for the last 48 hours he was having shortness of breath laying flat in bed. He stated that his legs get swollen sometimes. He is not sure if he gained any weight. The patient is not aware of any prior history of coronary artery disease or congestive heart failure beside the paroxysmal atrial fibrillation. He does have hypertension and dyslipidemia. When he presented to the emergency room, the EKG showed sinus bradycardia with heart rate in the 40s. Please note that the patient was receiving metoprolol 50 mg by mouth twice a day. The metoprolol is on hold at this point. The current heart rate in the ICU is in the 50s at this point. The TSH was checked and free T4 was checked and both came in to be unremarkable. The chest x-ray showed findings consistent with pulmonary edema. Clinically the patient seems to be like he is in heart failure beside symptomatic bradycardia. No BMP was checked on the patient at this point. The patient was given IV Lasix at 1 dose in the ER and he diuresed significantly with significant urine output. On follow-up with the patient today, 02/04/2018, he is doing better. The shortness of breath is better. No bilateral lower extremities edema. The heart rate has improved significantly and his resting heart rate is in the 60s and 70s. Yesterday I did add Norvasc to the current medical regimen. The echocardiogram revealed normal LV function with mild MR, mild TR, and mild pulmonary hypertension. From the cardiac vascular standpoint overview, the patient can be discharged home. Also I would DC the Lasix IV and start the patient on Lasix by mouth. Objective - Vital Signs Vital signs: Vital Signs Temp 97.5 F L 02/04/18 04:00 Pulse 54 L 02/04/18 04:00 Resp 15 02/04/18 04:00 BP 146/89 02/04/18 04:00 Pulse Ox 94 L 02/04/18 04:00 Intake & Output 02/03/18 02/04/18 02/04/18 18:59 06:59 18:59 Intake Total 850 Output Total 800 1735 Balance 50 -1735 Weight 113.8 kg Intake: Oral 850 Output: Urine 800 1735 Other: Voiding Method Urinal Urinal - Constitutional General appearance: Present: no acute distress - Respiratory Respiratory: bilateral: CTA - Cardiovascular Rhythm: regular Heart sounds: normal: S1, S2 - Labs CBC & Chem 7: 02/04/18 04:37 02/04/18 04:37 Labs: Abnormal Lab Results - Last 24 Hours (Table) 02/04/18 02/04/18 Range/Units 04:37 04:37 INR 1.2 H (<1.2) BUN 23 H (9-20) mg/dL Glucose 109 H (74-99) mg/dL Assessment and Plan Assessment: Assessment #1 symptomatic bradycardia which has slightly improved #2 paroxysmal atrial fibrillation. The patient has been maintaining normal sinus rhythm. #3 status post atrial fibrillation ablation #4 congestive heart failure exacerbation, seems to be mild, unknown if it's because of systolic or diastole dysfunction #5 hypertension Plan #1 continue holding the metoprolol at this point. #2 thyroid dysfunction was ruled out. The TSH and free T4 are within normal limits #3 DC Lasix IV and start the patient on Lasix by mouth #4 The patient can be discharged home.
[2018-02-04] MEDS: ATORVASTATIN 10 MG TAB PO SCH (08:34)
[2018-02-04] MEDS: PANTOPRAZOLE 40 MG TABLET PO SCH (08:35)
[2018-02-04] MEDS: FLUoxetine HCL 20 MG CAP PO SCH (08:35)
[2018-02-04] MEDS: ASPIRIN 81 MG PO SCH (08:36)
[2018-02-04] MEDS: amLODIPine 2.5 MG TAB PO SCH (08:38)
[2018-02-04] MEDS: ARIPiprazole 10 MG TAB PO SCH (08:38)
[2018-02-04] MEDS: LORATADINE 10 MG TAB PO SCH (08:39)
[2018-02-04] MEDS: DABIGATRAN 150 MG CAP PO SCH (08:39)
[2018-02-04] MEDS: DIVALPROEX ER 250 MG TAB.ER.24H PO SCH (08:39)
[2018-02-04] MEDS ORDERED: FUROSEMIDE 40 MG TAB PO SCH (09:00)
[2018-02-04 14:51] VITALS: BP 132/101; PULSE 61; RESP 18
--- NOTE | 2018-02-08 09:03 | CDI ---
Last Revision, March 2017 Documentation Clarification Form Date: 02/08/18 From: Medina Davis Phone: If you have a question, please contact Josie Cavazos at [phone] between 8am and 5pm. Admit Date: 02/01/2018 8:47:00 PM Patient Name: Get Astorga Visit Number: [id number] Discharge Date: 02/04/18 ATTENTION: The Clinical Documentation Specialists (CDI) and [facility] Coding Staff appreciate your assistance in clarifying documentation. Please respond to the clarification below the line at the bottom and electronically sign. The CDI & [facility] Coding staff will review the response and follow-up if needed. Please note: Queries are made part of the Legal Health Record. If you have any questions, please contact the author of this message via ITS. Prasanth Kang MD History/Risk Factors: Patient has a history of atrial fib with recent ablation and hypertension.. Patient was admitted for bradycardia and mild CHF. Clinical Indicators: Dyspnea and bilateral pleural effusion. VS/Pulse OX: T. 98.2, P. 44, R. 18, BP 144/79, Pulse Ox. 95% BNP: Not tested. Echocardiogram Results: Overall left ventricular systolic function is normal with an EF between 55 - 60%. Chest X Ray: Consistent with cardiogenic interstitial and alveolar phase pulmonary edema with small bilateral pleural effusions. Treatment: 40 mg IV Lasix Q 12 hours. In your professional opinion, can you please clarify the acuity and type of CHF if known? Systolic Heart Failure: Acute Chronic Acute on Chronic Diastolic Heart Failure: Acute Chronic Acute on Chronic Unable to Determine Other, please specify MTDD
--- NOTE | 2018-02-13 18:14 | P.PN ---
Subjective Progress Note Date: 02/03/18 57-year-old gentleman with history of proximal atrial fibrillation underwent ration procedure in the past came in with symptoms of shortness of breath has been going on for last 4-5 days along with orthopnea or paroxysmal nocturnal dyspnea and patient is found to have heart rate of in 40s patient is on beta travis for atrial fibrillation which is being held at this time patient doesn' t have significant bilateral pedal edema but does have crackles on lung exam along with bilateral pulmonary edema on the chest x-ray with bilateral pleural effusions. Patient denied any fever chills cough runny nose. Patient was given a dose of Lasix with improvement in some of his symptoms TSH and T4 are being obtained patient is being admitted for symptomatic bradycardia secondary to beta blockers which are being held and patient is on IV Lasix at this point of time his previous echocardiogram showed normal ejection fraction. Cardiology was consulted.\ On 02/03/2018 Patient is feeling better today. Maintained on normal sinus rhythm with heart rate around 50s. Metoprolol is on hold. Patient is being continued on IV Lasix. Echocardiogram showed normal LV function with mild MR and TR and mild pulmonary hypertension. Norvasc was added. Otherwise patient did improve symptomatically. No complaints of chest pain or shortness of breath. No dizziness or lightheadedness. Cardiology is following. Patient is being monitored in the MICU. Current medications reviewed. Objective - Vital Signs Vital signs: Vital Signs Temp 98.7 F 02/03/18 13:00 Pulse 48 L 02/03/18 13:00 Resp 16 02/03/18 13:00 BP 144/93 02/03/18 13:00 Pulse Ox 93 L 02/03/18 13:00 Intake & Output 02/02/18 02/03/18 02/03/18 18:59 06:59 18:59 Intake Total 40 450 Output Total 3400 1720 700 Balance -3400 -1680 -250 Weight 121.2 kg 116 kg Intake: Oral 40 450 Output: Urine 3400 1720 700 Other: Voiding Method Urinal Urinal Urinal # Bowel Movements 1 1 - Exam PHYSICAL EXAMINATION: Patient is lying in the bed comfortably, no acute distress, awake alert and oriented.. HEENT: Normocephalic. Neck is supple. Pupils reactive. Nostrils clear. Oral cavity is moist. Ears reveal no drainage. Neck reveals no JVD, carotid bruits, or thyromegaly. CHEST EXAMINATION: Trachea is central. Symmetrical expansion. Lung seals clear to auscultation and percussion. CARDIAC: Normal S1, S2 with no gallops. No murmurs ABDOMEN: Soft. Bowel sounds normal. No organomegaly. No abdominal bruits. Extremities: reveal no edema. No clubbing or cyanosis Neurologically awake, alert, oriented x3 with well-coordinated movements. No focal deficits noted Skin: No rash or skin lesions. Psychiatric: Coperative. Nonsuicidal Musculoskeletal: No joint swelling or deformity. Normal range of motion. - Labs CBC & Chem 7: 02/04/18 04:37 02/04/18 04:37 Labs: Abnormal Lab Results - Last 24 Hours (Table) 02/03/18 Range/Units 04:30 BUN 22 H (9-20) mg/dL Glucose 112 H (74-99) mg/dL Assessment and Plan Assessment: -Symptomatic bradycardia: Holding off on beta travis patient will probably require low-dose of beta travis eventually. -Atrial fibrillation with ablation procedures in the past presently in normal sinus rhythm patient probably had proximal atrial fibrillation. -Acute Congestive heart failure, likely diastolic dysfunction. patient is in acute exacerbation patient is receiving IV Lasix. Normal EF as per echocardiogram. -Hypertension -COPD without any acute exacerbation -Hyperlipidemia Time with Patient: Greater than 30
--- NOTE | 2018-02-13 18:17 | P.DS ---
Providers Date of admission: 02/01/18 20:47 Expected date of discharge: 02/04/18 Attending physician: Quincy Westbrook Consults: 02/01/18 20:47 Consult Physician Routine Consulting Provider: [facility] Consult Reason/Comments: Bradycardia, bilateral pleural effusions Do you want consulting provider notified?: Yes Primary care physician: [facility] Hospital Course: Discharge diagnosis -Symptomatic bradycardia: Holding off on beta travis. Heart rate improved now.. -Atrial fibrillation with ablation procedures in the past presently in normal sinus rhythm patient probably had proximal atrial fibrillation. -Acute Congestive heart failure, likely diastolic dysfunction. patient is in acute exacerbation patient is receiving IV Lasix. Normal EF as per echocardiogram. -Hypertension -COPD without any acute exacerbation -Hyperlipidemia Hospital course 57-year-old gentleman with history of proximal atrial fibrillation underwent ration procedure in the past came in with symptoms of shortness of breath has been going on for last 4-5 days along with orthopnea or paroxysmal nocturnal dyspnea and patient is found to have heart rate of in 40s patient is on beta travis for atrial fibrillation which is being held at this time patient doesn' t have significant bilateral pedal edema but does have crackles on lung exam along with bilateral pulmonary edema on the chest x-ray with bilateral pleural effusions. Patient denied any fever chills cough runny nose. Patient was given a dose of Lasix with improvement in some of his symptoms TSH and T4 are being obtained patient is being admitted for symptomatic bradycardia secondary to beta blockers which are being held and patient is on IV Lasix at this point of time his previous echocardiogram showed normal ejection fraction. Cardiology was consulted.\ On 02/03/2018 Patient is feeling better today. Maintained on normal sinus rhythm with heart rate around 50s. Metoprolol is on hold. Patient is being continued on IV Lasix. Echocardiogram showed normal LV function with mild MR and TR and mild pulmonary hypertension. Norvasc was added. Otherwise patient did improve symptomatically. No complaints of chest pain or shortness of breath. No dizziness or lightheadedness. Cardiology is following. Patient is being monitored in the MICU. 02/04/2018 Patient is feeling better. Denied any complaints of chest pain or short of breath. Continued on Lasix and Norvasc was added. Otherwise patient was converted to oral Lasix. Stable to be discharged home as per cardiology standpoint. PHYSICAL EXAMINATION: Patient is lying in the bed comfortably, no acute distress, awake alert and oriented.. HEENT: Normocephalic. Neck is supple. Pupils reactive. Nostrils clear. Oral cavity is moist. Ears reveal no drainage. Neck reveals no JVD, carotid bruits, or thyromegaly. CHEST EXAMINATION: Trachea is central. Symmetrical expansion. Lung seals clear to auscultation and percussion. CARDIAC: Normal S1, S2 with no gallops. No murmurs ABDOMEN: Soft. Bowel sounds normal. No organomegaly. No abdominal bruits. Extremities: reveal no edema. No clubbing or cyanosis Neurologically awake, alert, oriented x3 with well-coordinated movements. No focal deficits noted Skin: No rash or skin lesions. Psychiatric: Coperative. Nonsuicidal Musculoskeletal: No joint swelling or deformity. Normal range of motion. Vitals reviewed. Patient Condition at Discharge: Good Plan - Discharge Summary Discharge Rx Participant: No New Discharge Prescriptions: New amLODIPine [Norvasc] 2.5 mg PO DAILY #30 tab Furosemide [Lasix] 40 mg PO DAILY #30 tab Continue ARIPiprazole [Abilify] 10 mg PO DAILY Aspirin EC [Ecotrin Low Dose] 81 mg PO DAILY Atorvastatin [Lipitor] 10 mg PO DAILY Dabigatran [Pradaxa] 150 mg PO BID Divalproex ER [Depakote ER] 1,000 mg PO HS Divalproex ER [Depakote ER] 750 mg PO QAM FLUoxetine HCL [PROzac] 20 mg PO BID HYDROcodone/APAP 5-325MG [[place] 5-325] 1 - 2 tab PO Q6HR PRN PRN Reason: Pain Omeprazole 20 mg PO BID traZODone HCL 150 mg PO HS PRN PRN Reason: Insomnia Discontinued Ibuprofen [Motrin] 600 mg PO Q4HR PRN PRN Reason: Pain Metoprolol Tartrate [Lopressor] 50 mg PO BID Discharge Medication List ARIPiprazole [Abilify] 10 mg PO DAILY 02/01/18 [History] Aspirin EC [Ecotrin Low Dose] 81 mg PO DAILY 02/01/18 [History] Atorvastatin [Lipitor] 10 mg PO DAILY 02/01/18 [History] Dabigatran [Pradaxa] 150 mg PO BID 02/01/18 [History] Divalproex ER [Depakote ER] 1,000 mg PO HS 02/01/18 [History] Divalproex ER [Depakote ER] 750 mg PO QAM 02/01/18 [History] FLUoxetine HCL [PROzac] 20 mg PO BID 02/01/18 [History] HYDROcodone/APAP 5-325MG [[place] 5-325] 1 - 2 tab PO Q6HR PRN 02/01/18 [History] Omeprazole 20 mg PO BID 02/01/18 [History] traZODone HCL 150 mg PO HS PRN 02/01/18 [History] Furosemide [Lasix] 40 mg PO DAILY #30 tab 02/04/18 [Rx] amLODIPine [Norvasc] 2.5 mg PO DAILY #30 tab 02/04/18 [Rx] Follow up Appointment(s)/Referral(s): Prasanth Estrada MD [STAFF PHYSICIAN] - 02/14/18 1:15 pm (wednesday) [facility],Clinic [Primary Care Provider] - 1-2 days Patient Instructions/Handouts: Heart Failure (DC), Pleural Effusion (DC), Cardiac Ablation (DC), Bradycardia (DC) Discharge Disposition: HOME SELF-CARE
== END 2018-02-04 16:12 | disposition home or self-care (01) | DRG 308 ==
LOC: EC 18:22 → 2SICU 20:47
PROVIDERS: ADMIT Hospitalist; ATTEND Hospitalist
DX: R00.1 Bradycardia, unspecified (principal); I50.33 Acute on chronic diastolic (congestive) heart failure; E78.5 Hyperlipidemia, unspecified; F32.9 Major depressive disorder, single episode, unspecified; F43.10 Post-traumatic stress disorder, unspecified; I11.0 Hypertensive heart disease with heart failure; I27.20 Pulmonary hypertension, unspecified; I48.0 Paroxysmal atrial fibrillation; J44.9 Chronic obstructive pulmonary disease, unspecified; T44.7X5A Adverse effect of beta-adrenoreceptor antagonists, initial encounter; I08.1 Rheumatic disorders of both mitral and tricuspid valves; Z79.01 Long term (current) use of anticoagulants; Z79.82 Long term (current) use of aspirin; Z79.899 Other long term (current) drug therapy; Z88.7 Allergy status to serum and vaccine; Z80.8 Family history of malignant neoplasm of other organs or systems; Z82.49 Family history of ischemic heart disease and other diseases of the circulatory system; Z82.3 Family history of stroke; Z87.891 Personal history of nicotine dependence
CPT/HCPCS: 36415; 71046; 80048; 80053; 82550; 82553; 83735; 84439; 84443; 84484; 85025; 85027; 85610; 85730; 93005; 93306; 96374; 99285

== ENCOUNTER → 2018-08-11 | Outpatient (CLI) | payer OTHER ==
--- NOTE | 2018-08-11 11:28 | CT ---
EXAMINATION TYPE: CT chest w con DATE OF EXAM: 08/11/2018 COMPARISON: 08/05/2017 HISTORY: Follow up of lung nodules CT DLP: 483.0 mGycm, Automated exposure control for dose reduction was used. CONTRAST: Performed injected with 100 mL of Isovue 300. TECHNIQUE: Axial images were obtained at 5 mm thick sections. Reconstructed images are reviewed on [employer] computer in the coronal plane. FINDINGS: Portion of the thyroid visualized is normal. Calcified granuloma within the right middle lobe. Series 4 image 25, measures 0.6 cm and appears stab le in comparison. A curvilinear density within the right middle lobe has a transverse dimension of 0. 4 cm and appears stable from comparison. Series 4 image 39. No enlarged mediastinal or hilar adenopathy is evident. The ascending aorta diameter at the level o f the main pulmonary artery is 3.5 cm. The main pulmonary artery diameter at the bifurcation is 2.[address] sections are obtained through the upper abdomen. Abdomen is essentially unremarkable. IMPRESSIONS: 1. Stable densities within the right lung. Continued monitoring is recommended with a follow-up exam in 6 months.
== END ==
LOC: RADCTMAIN 06:51
DX: Z12.2 Encounter for screening for malignant neoplasm of respiratory organs (principal); R91.8 Other nonspecific abnormal finding of lung field
CPT/HCPCS: 71260; Q9967

== ENCOUNTER 2019-04-28 06:23 | Day surgery (SDC) | payer OTHER ==
[2019-04-26 11:46] VITALS: BMI 31.2
[~2019-04-28 06:23] MED LIST: SODIUM CHLORIDE 0.9% 1,000 ML IV SCH
[2019-04-28 06:55] VITALS: TEMP 97.9
[2019-04-28] MEDS ORDERED: PROPOFOL 10 MG/ML 20 ML VIAL IV ONE (08:27)
[2019-04-28 08:53] VITALS: RESP 16
--- NOTE | 2019-04-28 09:23 | CE ---
CARDIAC ELECTROPHYSIOLOGY REPORT CARDIOVERSION REPORT PERFORMING PHYSICIAN: Prasanth Estrada MD. PROCEDURE PERFORMED: Cardioversion of atrial fibrillation into normal sinus mechanism. INDICATION: Atrial fibrillation. COMPLICATION: None. PROCEDURE DESCRIPTION: After the patient is sedated using propofol, we did perform cardioversion using 200 joules on first attempt. No complication reported. The patient continues to be in normal sinus mechanism. CONCLUSION: Successful cardioversion of atrial fibrillation to normal sinus mechanism using 200 joules on first attempt. MMODL / IJN: [id number] /
[2019-04-28 10:06] VITALS: BP 113/69
[2019-04-28 10:17] VITALS: PULSE 63
== END 2019-04-28 10:17 | disposition home or self-care (01) ==
LOC: CATHCVL 06:23
PROVIDERS: ATTEND Internal Medicine Interventional Cardiology
DX: I48.20 Chronic atrial fibrillation, unspecified (principal); I10 Essential (primary) hypertension; I49.5 Sick sinus syndrome; I42.8 Other cardiomyopathies; E78.5 Hyperlipidemia, unspecified; Z86.79 Personal history of other diseases of the circulatory system; Z79.1 Long term (current) use of non-steroidal anti-inflammatories (NSAID); Z79.02 Long term (current) use of antithrombotics/antiplatelets; Z79.899 Other long term (current) drug therapy; Z88.8 Allergy status to other drugs, medicaments and biological substances
CPT/HCPCS: 92960; J2704

== ENCOUNTER 2019-10-01 17:21 | Emergency (ER) | payer OTHER ==
[2019-10-01 17:27] VITALS: RESP 18
--- NOTE | 2019-10-01 17:46 | ED ---
Lower Extremity Injury HPI - General Chief Complaint: Extremity Injury, Lower Stated Complaint: lt ankle injury Time Seen by Provider: 10/01/19 17:28 Source: patient Mode of arrival: wheelchair Limitations: no limitations - History of Present Illness Initial Comments: 59yo male presenting today for cc of left ankle pain, history of previous left ankle fracture and 2 tendon surgeries. [place] Patient states that he rolled his ankle after stepping off the porch. HE states he did not fall. Denies hip, or knee pain. Admits to lateral left ankle pain/swelling. Patient states he think he heard a crack. Patient denies any head, neck, abdomen, chest or back injury. Patient has no additional complaints. Upon arrival patient appears well there is no signs of acute distress. Patient appears well on arrival no signs of acute distress, cannot weight bear left ankle. - Related Data Home Medications Medication Instructions Recorded Confirmed Atorvastatin [Lipitor] 10 mg PO DAILY 02/01/18 04/28/19 Dabigatran [Pradaxa] 150 mg PO BID 02/01/18 04/28/19 traZODone HCL 150 mg PO HS PRN 02/01/18 04/28/19 Digoxin [Lanoxin] 125 mcg PO DAILY 04/26/19 04/28/19 Furosemide [Lasix] 20 mg PO DAILY PRN 04/26/19 04/28/19 Previous Rx's Medication Instructions Recorded Furosemide [Lasix] 40 mg PO DAILY #30 tab 02/04/18 amLODIPine [Norvasc] 2.5 mg PO DAILY #30 tab 02/04/18 HYDROcodone/APAP 5-325MG [[place] 1 tab PO Q6HR PRN 3 Days #12 tab 10/01/19 5-325] Allergies Allergy/AdvReac Type Severity Reaction Status Date / Time pneumococcal vaccine Allergy Swelling Verified 10/01/19 17:27 aspirin AdvReac heartburn Verified 10/01/19 17:27 Review of Systems ROS Statement: Those systems with pertinent positive or pertinent negative responses have been documented in the HPI. ROS Other: All systems not noted in ROS Statement are negative. Past Medical History Past Medical History: Atrial Fibrillation, COPD, Hyperlipidemia, Hypertension, Sleep Apnea/CPAP/BIPAP Additional Past Medical History / Comment(s): supposed to use CPAP, past hx kidney stone History of Any Multi-Drug Resistant Organisms: None Reported Past Surgical History: Cardiac Ablation, Joint Replacement, Orthopedic Surgery Additional Past Surgical History / Comment(s): cardioversion, cardiac ablation x2, asif knees replaced, ORIF right ankle Past Anesthesia/Blood Transfusion Reactions: No Reported Reaction Past Psychological History: Depression, PTSD Smoking Status: Former smoker Past Alcohol Use History: None Reported Past Drug Use History: Marijuana - Past Family History Mother Family Medical History: Thyroid Disorder Additional Family Medical History / Comment(s): thyroid cancer Father Family Medical History: AFIB, Congestive Heart Failure (CHF), CVA/TIA, Hypertension General Exam - General Exam Comments Initial Comments: General: The patient is awake and alert, in no distress Eye: Pupils are equal, extra-ocular movements are intact. No nystagmus. There is normal conjunctiva bilaterally. No signs of icterus. Musculoskeletal: Large scar noted on the left lateral ankle, there is what appears to be acute swelling at lateral malleolus. There is no ecchymosis. Patient can range at the left angle with significant pain patient is no proximal tibia or fibula pain. Strength 5/5 of knee and hip, refuses to full strength test affected ankle but no foot drop noted.. Sensation intact proximal or distal to injury site. DP pulses equal bilaterally 2+. Compartment soft and compressible. Neurological: A&O x 3. CN II-XII intact grossly, There are no obvious motor or sensory deficits. Coordination appears grossly intact. Speech is normal. Skin: Skin is warm and dry and no rashes or lesions are noted. Psychiatric: Cooperative, appropriate mood & affect, normal judgment. Limitations: no limitations Course Vital Signs 10/01/19 10/01/19 17:25 18:27 Temperature 99.3 F 98.3 F Pulse Rate 103 H 85 Respiratory 18 18 Rate Blood Pressure 117/73 120/91 O2 Sat by Pulse 97 94 L Oximetry Procedures - Orthopedic Splinting/Casting Injury #1 Side: left Lower Extremity Injury Location: short leg, ankle Lower Extremity Immobilizer: posterior splint, stirrup splint, synthetic pre- padded splint Additional Comments: Patient was neurovascularly intact both prior to and after splint placement capillary refill less than 3 seconds sensation of the toes present. ABle to wiggle all 5 digits of the left foot. Medical Decision Making - Medical Decision Making 59yo male presenting for left ankle pain after injury. Lateral swelling. Acute comminuted minimally displaced fibula fracture identified on XR. Patient neurovascularly intact compartments are soft and compressible. Posterior mold splint with stirrups was applied I recommended use of crutches until orthopedic follow-up patient was instructed from with orthopedic surgery within the next 2- 3 days calling Wednesday to arrange f/u appointment. Patient is agreeable to this care plan and discharge at this time. Dr. Camacho is agreeable to care plan. Return parameters were discussed. Disposition Clinical Impression: Lateral malleolar fracture, Left ankle pain Disposition: HOME SELF-CARE Condition: Good Instructions (If sedation given, give patient instructions): Ankle Fracture (ED), Ankle Sprain (ED) Additional Instructions: Please use medication as discussed. Please follow-up with family doctor in the next 2 days. DO not weight bear until orthopedic clearance, use crutches. Please return to emergency room if the symptoms increase or worsen or for any other concerns. Prescriptions: HYDROcodone/APAP 5-325MG [[place] 5-325] 1 tab PO Q6HR PRN 3 Days #12 tab PRN Reason: Severe Pain Is patient prescribed a controlled substance at d/c from ED?: Yes When asked, does pt state using other controlled substances?: No If prescribed controlled substance>3 days was MAPS reviewed?: Prescribed <3 Days If opioid is for acute pain is fill amount 7 days or less?: Yes If Rx opioid, was Start Talking consent form obtained?: Yes Referrals: [facility],Clinic [Primary Care Provider] - 1-2 days Mike Rush MD [STAFF PHYSICIAN] - 1-2 days Time of Disposition: 18:13
--- NOTE | 2019-10-01 18:12 | XR ---
EXAMINATION TYPE: XR ankle complete LT DATE OF EXAM: 10/01/2019 CLINICAL HISTORY: Pain after fall injury today. TECHNIQUE: Frontal, lateral and oblique images of the left ankle are obtained. COMPARISON: None. FINDINGS: There is acute comminuted minimally displaced fracture through the lateral malleolus begin benjamin at mortise level extending inferiorly with [id number] adjacent soft tissue swelling. Ankle mortise symmetry is preserved. Medial and posterior malleoli are intact. Associated joint effusion p osterior tibiotalar region is present. Incidental moderate size superior and tiny inferior calcaneal spurs IMPRESSION: There is acute minimally displaced comminuted intra-articular fracture lateral malleolus . (Initial encounter closed type posttraumatic fracture)
[2019-10-01] MEDS ORDERED: HYDROcodone/APAP 5-325MG 1 EACH TAB PO STA (18:23)
[2019-10-01 18:28] VITALS: BP 120/91; PULSE 85; TEMP 98.3
== END 2019-10-01 18:37 | disposition home or self-care (01) ==
LOC: EC 17:21
DX: S82.62XA Displaced fracture of lateral malleolus of left fibula, initial encounter for closed fracture (principal); I48.91 Unspecified atrial fibrillation; E78.5 Hyperlipidemia, unspecified; I10 Essential (primary) hypertension; G47.30 Sleep apnea, unspecified; Z79.01 Long term (current) use of anticoagulants; Z79.899 Other long term (current) drug therapy; Z87.891 Personal history of nicotine dependence; Z88.6 Allergy status to analgesic agent; Z88.7 Allergy status to serum and vaccine; Z99.89 Dependence on other enabling machines and devices; Z96.653 Presence of artificial knee joint, bilateral; X50.1XXA Overexertion from prolonged static or awkward postures, initial encounter; Y93.A3 Activity, aerobic and step exercise
CPT/HCPCS: 29515; 99283

== ENCOUNTER 2019-11-09 11:19 | Emergency (ER) | payer OTHER ==
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
--- NOTE | 2019-11-09 11:54 | XR ---
EXAMINATION TYPE: XR wrist complete LT DATE OF EXAM: 11/09/2019 COMPARISON: NONE HISTORY: Pain TECHNIQUE: Four views submitted. FINDINGS: The osseous structures are intact. Severe narrowing the first carpal metacarpal joint. Well-corticate d densities are seen adjacent to the scaphoid. Mild diffuse osteopenia. A density adjacent to the uln ar styloid appears chronic.. IMPRESSION: 1. No definite acute fracture or dislocation if symptoms persist, follow-up study in 7 to 10 days wo uld be suggested. 2. 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 3. On the palmar surface of the distal radius and anterior subcutaneous tissues there is a calcific o r radiopaque densities. Difficult to determine if this is related to calcification or possible foreig n body correlate clinically.
[2019-11-09 12:42] VITALS: BP 132/95; PULSE 73; RESP 18; TEMP 97.5
== END 2019-11-09 12:43 | disposition home or self-care (01) ==
LOC: EC 11:19
DX: S63.502A Unspecified sprain of left wrist, initial encounter (principal); F32.9 Major depressive disorder, single episode, unspecified; I48.91 Unspecified atrial fibrillation; E78.5 Hyperlipidemia, unspecified; I10 Essential (primary) hypertension; G47.30 Sleep apnea, unspecified; Z79.01 Long term (current) use of anticoagulants; Z79.899 Other long term (current) drug therapy; Z88.6 Allergy status to analgesic agent; Z88.7 Allergy status to serum and vaccine; Z87.891 Personal history of nicotine dependence; Z99.89 Dependence on other enabling machines and devices; Z96.653 Presence of artificial knee joint, bilateral; V63.5XXA Driver of heavy transport vehicle injured in collision with car, pick-up truck or van in traffic accident, initial encounter; Y92.410 Unspecified street and highway as the place of occurrence of the external cause
CPT/HCPCS: 99283

== ENCOUNTER → 2019-11-21 | Outpatient (CLI) | payer OTHER ==
[2019-11-21 08:13] LABS: HCT 49.3 % (39.0-53.0); HGB 15.8 gm/dL (13.0-17.5); MCH 29.3 pg (25.0-35.0); MCHC 32.1 g/dL (31.0-37.0); MCV 91.2 fL (80.0-100.0); Mean Platelet Volume 8.4; Platelet Count 199 k/uL (150-450); RBC 5.41 m/uL (4.30-5.90); RDW 13.2 % (11.5-15.5); WBC 7.9 k/uL (3.8-10.6)
[2019-11-21 08:37] LABS: African American GFR (CKD) >90 (>60 ml/min/1.73 sqM); Anion Gap 6 mmol/L; Blood Urea Nitrogen 16 mg/dL (9-20); Carbon Dioxide 27 mmol/L (22-30); Chloride 107 mmol/L (98-107); Glucose 101 mg/dL (74-99); Non-African American GFR(CKD) >90 (>60 ml/min/1.73 sqM); Potassium 4.3 mmol/L (3.5-5.1); Sodium 140 mmol/L (137-145)
== END | disposition home or self-care (01) ==
LOC: LABPAT 07:03
PROVIDERS: ATTEND Internal Medicine Interventional Cardiology
DX: Z01.818 Encounter for other preprocedural examination (principal); I48.0 Paroxysmal atrial fibrillation; I10 Essential (primary) hypertension
CPT/HCPCS: 36415; 80051; 82565; 82947; 84520; 85027

== ENCOUNTER → 2019-11-24 | Day surgery (SDC) | payer OTHER ==
[2019-11-17 16:55] VITALS: BMI 32.2
[~2019-11-24] MED LIST changes: +ALPRAZolam 0.25 MG TAB PO PRN; +ALPRAZolam 0.5 MG TAB PO PRN; +ATORVASTATIN 80 MG TAB PO STA; +HEPARIN SODIUM 1,000 UN/ML (10ML VL) IV ONE; +HEPARIN SODIUM 1,000 UN/ML (10ML VL) ONE; +IOPAMIDOL-370 125ML BTL INJ ONE; +LIDOCAINE 1% INJ 10MG/ML (20 ML MDV) ONE; +LIDOCAINE 1% INJ 10MG/ML (20 ML MDV) SQ ONE; +MIDAZOLAM 2 MG/2 ML VIAL IVP ONE; +NITROGLYCERIN SL TABS 0.4 MG TAB SUBLINGUAL PRN; +RX INFO: IV CONTRAST WAS GIVEN 1 EACH MISC MISCELLANE PRN; +SODIUM CHLORIDE 0.9% 1,000 ML in EMPTY BAG 1 BAG IV ONE; +VERAPAMIL 2.5 MG/ML 2 ML AMP ONE; +fentaNYL (PF) 50 MCG/ML 2 ML AMP IVP ONE; +fentaNYL (PF) 50 MCG/ML 2 ML AMP ONE
[2019-11-24 11:46] VITALS: RESP 18; TEMP 98
[2019-11-24] MEDS: VERAPAMIL SYRINGE (5 MG/10 ML) INTRAARTER ONE ×2 (13:05→13:11)
--- NOTE | 2019-11-24 14:14 | CC ---
CARDIAC CATHETERIZATION REPORT DATE OF SERVICE: 11/24/2019 PERFORMING PHYSICIAN: Prasanth Estrada MD. PROCEDURE PERFORMED: 1. Selective right and left coronary angiogram. 2. Left heart catheterization. INDICATION: This is a very pleasant 59-year-old gentleman who continues to have shortness of breath with exertion concerning for severe underlying coronary artery disease. He does have multiple risk factors. Because of that, a heart catheterization was advised. APPROACH: Right radial artery. COMPLICATION: None. LEVEL OF SEDATION: Moderate with sedation length of 11 minutes. PROCEDURE DESCRIPTION: After obtaining an informed consent, the patient was brought to the cardiac qc lab technician. The right radial artery was cannulated using micropuncture technique, the micropuncture wire passed easily, then I placed a 6-[place] sheath at the right radial artery. I gave the patient 2 mg of verapamil IA and 10,000 units of heparin IV. Selective right and left coronary angiogram performed using JR3.5 and JL3.5 catheters. Left heart catheterization was performed using the JR3.5 which crossed the aortic valve, then I did pullback across the valve after flushing the catheter. The procedure was completed without any complication. SELECTIVE CORONARY ANGIOGRAM: 1. The right coronary artery is a large caliber vessel. It is a dominant vessel. The RCA is angiographically normal. It bifurcates into PDA and PLV branches and both appeared to be angiographically normal. 2. The left main is angiographically normal, it bifurcates into LCX, ramus intermedius, and left anterior descending artery. 3. The left circumflex is a large caliber vessel, it is a nondominant vessel. The left circumflex is angiographically normal. 4. The LAD is also angiographically normal in the proximal to midportion, gives rise into a diagonal branch which seems to be angiographically normal. 5. HEMODYNAMICS: The LVEDP was 6-8 mmHg without any significant gradient across the aortic valve. CONCLUSION: 1. Normal coronary angiogram. 2. Normal LVEDP. POSTPROCEDURE MANAGEMENT: 1. Medical treatment. 2. Follow up with the patient. MMODL / IJN: [id number] /
[2019-11-24 16:26] VITALS: BP 118/67; PULSE 72
== END ==
LOC: CATHCVL 10:50
PROVIDERS: ATTEND Internal Medicine Interventional Cardiology
DX: I20.0 Unstable angina (principal); I48.0 Paroxysmal atrial fibrillation; I11.0 Hypertensive heart disease with heart failure; I50.32 Chronic diastolic (congestive) heart failure; E78.00 Pure hypercholesterolemia, unspecified; E78.5 Hyperlipidemia, unspecified; Z72.0 Tobacco use; Z79.899 Other long term (current) drug therapy; Z88.8 Allergy status to other drugs, medicaments and biological substances; Z82.49 Family history of ischemic heart disease and other diseases of the circulatory system
CPT/HCPCS: 93458; J2250; J2001; J3010; J1644; Q9967

== ENCOUNTER 2020-01-19 10:13 | Emergency (ER) | payer OTHER ==
[2020-01-19 10:31] VITALS: BP 136/95; PULSE 95; RESP 18; TEMP 97.8
[2020-01-19] MEDS ORDERED: ORPHENADRINE 30 MG/ML 2 ML VIAL IM STA (10:51)
[2020-01-19] MEDS ORDERED: HYDROmorphone 1 MG/ML 1 ML SYRINGE IM STA (10:51)
[2020-01-19] MEDS ORDERED: ACET/COD 300 MG/30 MG STARTER PACK 6 TAB BTL PO STA (10:54)
--- NOTE | 2020-01-19 10:55 | ED ---
Back Pain HPI - General Chief Complaint: Back Pain/Injury Stated Complaint: Back pain Time Seen by Provider: 01/19/20 10:40 Source: patient, RN notes reviewed Mode of arrival: ambulatory Limitations: no limitations - History of Present Illness Initial Comments: 59-year-old male presents emergency Department chief complaint of low back pain. Patient states he has chronic low back pain he is scheduled for an MRI next Wednesday. He denies any bowel, bladder incontinence or retention or saddle anesthesias. Patient states that he was doing some yard work and he aggravated his back. He states that he's been taking Motrin at home but states it's not helping much. He states that the pain is gone unbearable he is able to ambulate states that it does increase his symptoms. He denies any lower shunted paresthesias. - Related Data Home Medications Medication Instructions Recorded Confirmed Atorvastatin [Lipitor] 40 mg PO HS 02/01/18 11/24/19 Digoxin [Lanoxin] 125 mcg PO DAILY 04/26/19 11/24/19 Escitalopram [Lexapro] 10 mg PO DAILY 11/17/19 11/24/19 Previous Rx's Medication Instructions Recorded Furosemide [Lasix] 40 mg PO DAILY #30 tab 02/04/18 amLODIPine [Norvasc] 2.5 mg PO DAILY #30 tab 02/04/18 Cyclobenzaprine [Flexeril] 10 mg PO TID PRN #15 tab 01/19/20 Ibuprofen [Motrin] 800 mg PO Q6HR #20 tab 01/19/20 predniSONE 50 mg PO DAILY #5 tab 01/19/20 Allergies Allergy/AdvReac Type Severity Reaction Status Date / Time pneumococcal vaccine Allergy Swelling Verified 01/19/20 10:31 aspirin AdvReac heartburn Verified 01/19/20 10:31 Review of Systems ROS Statement: Those systems with pertinent positive or pertinent negative responses have been documented in the HPI. ROS Other: All systems not noted in ROS Statement are negative. Past Medical History Past Medical History: Atrial Fibrillation, COPD, Hyperlipidemia, Hypertension, Sleep Apnea/CPAP/BIPAP Additional Past Medical History / Comment(s): supposed to use CPAP, past hx kidney stone History of Any Multi-Drug Resistant Organisms: None Reported Past Surgical History: Cardiac Ablation, Joint Replacement, Orthopedic Surgery Additional Past Surgical History / Comment(s): cardioversion, cardiac ablation x2, asif knees replaced, ORIF right ankle Past Anesthesia/Blood Transfusion Reactions: No Reported Reaction Past Psychological History: Depression, PTSD Smoking Status: Former smoker Past Alcohol Use History: None Reported Past Drug Use History: None Reported - Past Family History Mother Family Medical History: Thyroid Disorder Additional Family Medical History / Comment(s): thyroid cancer Father Family Medical History: AFIB, Congestive Heart Failure (CHF), CVA/TIA, Hypertension General Exam Limitations: no limitations General appearance: alert, in no apparent distress Head exam: Present: atraumatic, normocephalic, normal inspection Respiratory exam: Present: normal lung sounds bilaterally. Absent: respiratory distress, wheezes, rales, rhonchi, stridor Cardiovascular Exam: Present: regular rate, normal rhythm, normal heart sounds. Absent: systolic murmur, diastolic murmur, rubs, gallop, clicks GI/Abdominal exam: Present: soft, normal bowel sounds. Absent: distended, tenderness, guarding, rebound, rigid Extremities exam: Present: other (Lower extremity strength equal bilaterally, neurovascular intact, equal color equal warmth there is mild pain with right straight leg raise) Back exam: Present: full ROM (With moderate discomfort), tenderness (Right lumbar), muscle spasm, paraspinal tenderness. Absent: CVA tenderness (R), CVA tenderness (L), vertebral tenderness Neurological exam: Present: alert, oriented X3, CN II-XII intact, reflexes normal. Absent: motor sensory deficit Skin exam: Present: warm, dry, intact, normal color. Absent: rash Course Vital Signs 01/19/20 10:30 Temperature 97.8 F Pulse Rate 95 Respiratory 18 Rate Blood Pressure 136/95 O2 Sat by Pulse 98 Oximetry Medical Decision Making - Medical Decision Making 59-year-old presented for back pain is chronic issues. Patient has no red flag symptoms she is able to ambulate. Patient provided short course of pain medication or follow-up with his MRI on Wednesday and return for any worsening symptoms. Disposition Clinical Impression: Strain of lumbar region, Acute exacerbation of chronic low back pain Disposition: HOME SELF-CARE Condition: Stable Instructions (If sedation given, give patient instructions): Acute Low Back Pain (ED) Additional Instructions: Please return to the Emergency Department if symptoms worsen or any other concerns. Prescriptions: Cyclobenzaprine [Flexeril] 10 mg PO TID PRN #15 tab PRN Reason: Muscle Spasm Ibuprofen [Motrin] 800 mg PO Q6HR #20 tab predniSONE 50 mg PO DAILY #5 tab Is patient prescribed a controlled substance at d/c from ED?: No Referrals: [facility],Clinic [Primary Care Provider] - 1-2 days Time of Disposition: 10:55
== END 2020-01-19 11:17 | disposition home or self-care (01) ==
LOC: EC 10:13
DX: S39.012A Strain of muscle, fascia and tendon of lower back, initial encounter (principal); G89.29 Other chronic pain; I48.91 Unspecified atrial fibrillation; G47.30 Sleep apnea, unspecified; E78.5 Hyperlipidemia, unspecified; F32.9 Major depressive disorder, single episode, unspecified; Z79.899 Other long term (current) drug therapy; Z88.6 Allergy status to analgesic agent; Z88.7 Allergy status to serum and vaccine; Z99.89 Dependence on other enabling machines and devices; Z96.653 Presence of artificial knee joint, bilateral; Z87.891 Personal history of nicotine dependence; X58.XXXA Exposure to other specified factors, initial encounter; Y92.096 Garden or yard of other non-institutional residence as the place of occurrence of the external cause
CPT/HCPCS: 99283; 96372 ×2; J2360; J1170

== ENCOUNTER → 2020-01-23 | Outpatient (CLI) | payer OTHER ==
--- NOTE | 2020-01-23 13:50 | MR ---
EXAMINATION TYPE: MR lumbar spine wo con DATE OF EXAM: 01/23/2020 1:27 PM COMPARISON: NONE HISTORY: Lumbar pain Multiplanar, MultiSpin echo imaging of the lumbar spine was performed. L1-L2: Normal disc appearance without desiccation. No herniation, protrusion or disc bulging. No ca nal stenosis is present. Foramina are patent bilaterally. L2-L3: Normal disc appearance without desiccation. No herniation, protrusion or disc bulging. No ca nal stenosis is present. Foramina are patent bilaterally. L3-L4: Mild disc desiccation posterior disc bulge. Effacement ventral thecal sac. There is also hyper trophy of the ligamentum flavum and facet joint arthropathy resulting in mild central stenosis. L4-L5: Mild to moderate disc desiccation posterior disc bulge. Mild effacement ventral thecal sac. No evidence for central stenosis or disc herniation. Mild bilateral foraminal encroachment. Facet joint arthropathy noted. L5-S1: Moderate disc desiccation. Posterocentral disc bulge without central stenosis. Left greater th an right foraminal encroachment. Lumbar segments are intact. No paraspinal masses are identified. Conus medullaris has a normal appe arance. IMPRESSION: 1. Multilevel degenerative disc disease. Mild central stenosis at L3
== END | disposition home or self-care (01) ==
LOC: RADMRIMAIN 12:26
PROVIDERS: ATTEND Physician Assistant Medical
DX: M48.061 Spinal stenosis, lumbar region without neurogenic claudication (principal); M51.36 Other intervertebral disc degeneration, lumbar region; Z88.6 Allergy status to analgesic agent; Z88.7 Allergy status to serum and vaccine; Z88.8 Allergy status to other drugs, medicaments and biological substances
CPT/HCPCS: 72148

== ENCOUNTER → 2020-02-29 | Outpatient (CLI) | payer OTHER ==
[2020-02-29 12:32] VITALS: BP 143/102; PULSE 99; RESP 16; TEMP 97.5
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
== END | disposition home or self-care (01) ==
LOC: PNWHC3 11:47
PROVIDERS: ATTEND Anesthesiology
DX: M47.816 Spondylosis without myelopathy or radiculopathy, lumbar region (principal); I48.91 Unspecified atrial fibrillation; E78.5 Hyperlipidemia, unspecified; I10 Essential (primary) hypertension; G47.30 Sleep apnea, unspecified; Z79.899 Other long term (current) drug therapy; Z79.1 Long term (current) use of non-steroidal anti-inflammatories (NSAID); Z79.02 Long term (current) use of antithrombotics/antiplatelets; Z99.89 Dependence on other enabling machines and devices; Z87.891 Personal history of nicotine dependence
CPT/HCPCS: 99211

== ENCOUNTER → 2020-04-01 | Day surgery (SDC) | payer OTHER ==
[~2020-04-01] MED LIST changes: -ALPRAZolam 0.25 MG TAB PO PRN; -ALPRAZolam 0.5 MG TAB PO PRN; -ATORVASTATIN 80 MG TAB PO STA; -HEPARIN SODIUM 1,000 UN/ML (10ML VL) IV ONE; -HEPARIN SODIUM 1,000 UN/ML (10ML VL) ONE; -IOPAMIDOL-370 125ML BTL INJ ONE; -LIDOCAINE 1% INJ 10MG/ML (20 ML MDV) ONE; -LIDOCAINE 1% INJ 10MG/ML (20 ML MDV) SQ ONE; -MIDAZOLAM 2 MG/2 ML VIAL IVP ONE; -NITROGLYCERIN SL TABS 0.4 MG TAB SUBLINGUAL PRN; +PROPOFOL 10 MG/ML 20 ML VIAL IV ONE; -RX INFO: IV CONTRAST WAS GIVEN 1 EACH MISC MISCELLANE PRN; -SODIUM CHLORIDE 0.9% 1,000 ML in EMPTY BAG 1 BAG IV ONE; +SODIUM CHLORIDE 0.9% 500 ML 500 ML IV ONE; -VERAPAMIL 2.5 MG/ML 2 ML AMP ONE; -fentaNYL (PF) 50 MCG/ML 2 ML AMP IVP ONE; -fentaNYL (PF) 50 MCG/ML 2 ML AMP ONE
[2020-04-01 07:04] LABS: African American GFR (CKD) >90 (>60 ml/min/1.73 sqM); Anion Gap 3 mmol/L; Blood Urea Nitrogen 14 mg/dL (9-20); Carbon Dioxide 28 mmol/L (22-30); Chloride 108 mmol/L (98-107); Glucose 106 mg/dL (74-99); Non-African American GFR(CKD) >90 (>60 ml/min/1.73 sqM); Potassium 4.2 mmol/L (3.5-5.1); Sodium 139 mmol/L (137-145)
[2020-04-01 07:05] VITALS: RESP 16; TEMP 97.9
--- NOTE | 2020-04-01 08:22 | CE ---
CARDIAC ELECTROPHYSIOLOGY REPORT DATE OF SERVICE: 04/01/2020 PERFORMING PHYSICIAN: Prasanth Estrada MD. PROCEDURE PERFORMED: Cardioversion. INDICATION: Atrial fibrillation. COMPLICATION: None. LEVEL OF SEDATION: Deep sedation was performed using propofol with a GRAIN RECEIVER in the room. PROCEDURE DESCRIPTION: After obtaining informed consent, the patient was brought to the recovery room. A pulse oximetry and heart rate monitors were attached the patient. Subsequently, the patient was sedated using propofol with GRAIN RECEIVER in the room. The patient cardioverted from atrial fibrillation to normal sinus mechanism using 360 joules and third attempt. The first attempt was with 100 joules and the second attempt was with 250 joules and third attempt was 360 joules and with that was successful. CONCLUSION: Successful cardioversion of atrial fibrillation to normal sinus mechanism using 360 joules and third attempt. POSTPROCEDURE MANAGEMENT: 1. Continue anticoagulation. 2. Patient can be discharged home. MMODL / IJN: [id number] /
[2020-04-01 08:41] VITALS: PULSE 52
[2020-04-01 10:01] VITALS: BP 122/79
== END ==
LOC: CATHCVL 06:26
PROVIDERS: ATTEND Internal Medicine Interventional Cardiology
DX: I48.0 Paroxysmal atrial fibrillation (principal); I11.0 Hypertensive heart disease with heart failure; I50.32 Chronic diastolic (congestive) heart failure; E78.5 Hyperlipidemia, unspecified; M54.5 Low back pain; J44.9 Chronic obstructive pulmonary disease, unspecified; G47.33 Obstructive sleep apnea (adult) (pediatric); F32.9 Major depressive disorder, single episode, unspecified; F43.10 Post-traumatic stress disorder, unspecified; Z72.0 Tobacco use; Z79.01 Long term (current) use of anticoagulants; Z79.899 Other long term (current) drug therapy; Z79.1 Long term (current) use of non-steroidal anti-inflammatories (NSAID); Z88.8 Allergy status to other drugs, medicaments and biological substances; Z88.6 Allergy status to analgesic agent; Z88.7 Allergy status to serum and vaccine; Z82.49 Family history of ischemic heart disease and other diseases of the circulatory system
CPT/HCPCS: 92960; 80048; J2704

== ENCOUNTER 2020-06-21 06:31 | Day surgery (SDC) | payer OTHER ==
[2020-06-19 15:17] VITALS: BMI 31.6
[~2020-06-21 06:31] MED LIST changes: +LACTATED RINGERS 1,000 ML IV SCH; -PROPOFOL 10 MG/ML 20 ML VIAL IV ONE; -SODIUM CHLORIDE 0.9% 1,000 ML IV SCH; -SODIUM CHLORIDE 0.9% 500 ML 500 ML IV ONE
[2020-06-21 07:12] VITALS: RESP 16; TEMP 97.7
[2020-06-21] MEDS ORDERED: ROPIVACAINE 5MG/ML 20ML VIAL ONE (07:56)
[2020-06-21] MEDS ORDERED: methylPREDNISolone ACETATE 40 MG/ML 1 ML VIAL ONE (07:56)
--- NOTE | 2020-06-21 07:57 | P.PCN ---
Date of Procedure: 06/21/20 Procedure(s) Performed: PREOPERATIVE DIAGNOSIS : 1- Lumbar spondylosis with Facet Arthropathy without myelopathy . POSTOPERATIVE DIAGNOSIS: 1- Lumbar spondylosis with Facet Arthropathy without myelopathy . PROCEDURE: Diagnostic Right L2 , L3 , L4 , and L5 medial branch block under fluoroscopy guidance(fluoroscopy images available in the radiology Department ) ( To target the facet joint between Right L3-4 ,L4-5 , and L5-S1 ) ANESTHESIA:, Local infiltration with ropivacaine 0.5% 4 ml only. EBL: Minimal COMPLICATION: None PROCEDURE INDICATION: Chronic low back pain secondary to Facet arthropathy unresponsive to conservative treatment. PROCEDURE DESCRIPTION: the patient was seen and identified in the preop holding area , risks and benefits and possible complications of the procedure and alternative were discussed with the patient, and the patient agreed to proceed with the procedure and signed the consent and vital signs monitored during the procedure and fluoroscopy was used to maximize the benefit and accuracy of the needle placement ,, patient was taken to the procedure room and placed in prone position vital signs monitored in the back prepped with chlorhexidine X3 then under strict sterile technique using a right oblique fluoroscopy ,the junction of the transverse process and the superior articulating process of the right L2 , L3 , L4 , and L5 vertebra which corresponding to the fluoroscopy image of the eye of the Audi dog on the block side for the medial branches and subsequently , after local infiltration of skin and subcu tissuies with Ropivacaine 0.5 % , one mL at each level ,then 25- gauge Quincke-type needles , 4 needle was used , each one of them placed at the junction of the base of the transverse process and the superior articular process at the appropriate level, and the needle was advanced until the periosteum contacted, needle placement confirmed with AP oblique and lateral view and after appropriate needle placement confirmed, and after negative aspiration for heme and CSF and there was no paresthesia 2 mL of Ropivacaine 0.5% mixed with 40 mg Depo-Medrol , then half mL injected at each level after negative aspiration the needle subsequently removed . At the end of the procedure and the needles removed and a bandage applied after the skin was cleaned the cleaning solution patient taken to recovery room in stable condition and monitors in the recovery room for 20-30 minutes and discharged home in stable condition after discharge criteria met and patient will follow up with the pain clinic in 2-4 weeks
[2020-06-21 08:07] VITALS: BP 112/73; PULSE 53
--- NOTE | 2020-06-21 08:07 | FL ---
EXAMINATION TYPE: FL guided pain mgmt statistic DATE OF EXAM: 06/21/2020 CLINICAL HISTORY: Low back pain. TECHNIQUE: Fluoroscopy. COMPARISON: None. FINDINGS: Fluoroscopic guidance was provided during pain relief procedure performed by Dr. Dudley . A total of 14 seconds of fluoroscopic time was utilized during the procedure and two spot images a re acquired. Images acquired shows needle localization at several levels in the lumbar spine. IMPRESSION: As Above.
== END 2020-06-21 08:27 | disposition home or self-care (01) ==
LOC: ORPAIN 06:31
PROVIDERS: ATTEND Specialist
DX: G89.29 Other chronic pain (principal); M47.816 Spondylosis without myelopathy or radiculopathy, lumbar region; I48.91 Unspecified atrial fibrillation; Z88.7 Allergy status to serum and vaccine; Z79.01 Long term (current) use of anticoagulants; Z88.6 Allergy status to analgesic agent
CPT/HCPCS: 64493; 64494; 64495; J1030; J2795

== ENCOUNTER 2020-07-12 12:57 | Day surgery (SDC) | payer OTHER ==
[2020-07-09 12:11] VITALS: BMI 31.0
[2020-07-12 13:39] VITALS: TEMP 97.1
--- NOTE | 2020-07-12 14:07 | P.PCN ---
Date of Procedure: 07/12/20 Description of Procedure: DESCRIPTION OF PROCEDURE(S): PROCEDURE: Right lumbar medial branch block L3-L4, L4-L5, L5-S1 with fluoroscopy PREOPERATIVE DIAGNOSIS : 1- Lumbar spondylosis with Facet Arthropathy without myelopathy . 2- Lumber degenerative disc disease POSTOPERATIVE DIAGNOSIS: 1- Lumbar spondylosis with Facet Arthropathy without myelopathy . 2- Lumber degenerative disc disease PROCEDURE: Diagnostic right L3 -4 , L4 -5 , and L5-S1 medial branch block under fluoroscopy ANESTHESIA: Local COMPLICATION: None. IV FLUIDS: 100 mL of normal saline. PROCEDURE INDICATION: Chronic low back pain secondary to Facet arthropathy unresponsive to conservative treatment. Patient had excellent relief with the initial diagnostic medial branch block 2 weeks ago. He had greater than 80% relief for 3 days improved ADLs. PROCEDURE DESCRIPTION: the patient was seen and identified in the preop holding area , risks and benefits and possible complications of the procedure and alternative were discussed with the patient, and the patient agreed to proceed with the procedure and signed the consent IV was started and vital signs monitored during the procedure and fluoroscopy was used to maximize the benefit and accuracy of the needle placement, and sedation was given to decrease patient anxiety, patient was taken to the procedure room and placed in prone position vital signs monitored in the back prepped with chlorhexidine X3 then under strict sterile technique using a right oblique fluoroscopy ,the junction of the transverse process and the superior articulating process of the right L3- 4 , L4- 5, and L5-S1 vertebra which corresponding to the fluoroscopy image of the eye of the Audi dog on the block side for the medial branches and subsequently , a 25-gauge Quincke-type needle was used and each time placed at the junction of the base of the transverse process and the superior articular process at the appropriate level L3, L4, L5, S1 pedicle. The needle was advanced until the periosteum contacted, needle placement confirmed with AP oblique and lateral view and after appropriate needle placement confirmed, and after negative aspiration for heme and CSF and there was no paresthesia 1 mL of 0.5% ropivacaine was injected at each level after negative aspiration the needle subsequently. At the end of the procedure and the needles removed and a bandage applied after the skin was cleaned the cleaning solution patient taken to recovery room in stable condition and monitors in the recovery room for 20-30 minutes and discharged home in stable condition after discharge criteria met and patient will return for repeat procedure in 2-4 weeks.
[2020-07-12 14:10] VITALS: RESP 18
[2020-07-12 14:26] VITALS: BP 116/75; PULSE 85
--- NOTE | 2020-07-12 16:15 | FL ---
Fluoroscopy INDICATION: Pain FINDINGS: Fluoroscopy time: 16 seconds. Images obtained: 0. IMPRESSIONS: 1. Documentation of fluoroscopy.
== END 2020-07-12 14:28 | disposition home or self-care (01) ==
LOC: ORPAIN 12:57
PROVIDERS: ATTEND Anesthesiology
DX: G89.29 Other chronic pain (principal); M47.816 Spondylosis without myelopathy or radiculopathy, lumbar region; M51.36 Other intervertebral disc degeneration, lumbar region; Z98.890 Other specified postprocedural states; Z88.6 Allergy status to analgesic agent; Z88.8 Allergy status to other drugs, medicaments and biological substances; Z88.7 Allergy status to serum and vaccine; Z79.01 Long term (current) use of anticoagulants
CPT/HCPCS: 64493; 64494; 64495

== ENCOUNTER → 2020-07-29 | Outpatient (CLI) | payer OTHER ==
[2020-07-29 14:31] VITALS: BP 111/69; PULSE 79; RESP 18; TEMP 97.6
--- NOTE | 2020-07-29 14:46 | P.PN ---
Subjective Progress Note Date: 07/29/20 This is a follow-up visit for this 60 years old male with a chronic history of severe low back pain history close with lumbar spondylosis and lumbar facet arthropathy, status post diagnostic medial branch block lumbar area on the right side at L2, L3, L4, L5, x2 , patient noted 100% relief of his low back pain after the first diagnostic medial branch block, and he gets 80% relief after the second diagnostic medial branch block, and during the period of pain relief his activity of daily livings improved, he denies any motor or sensory deficit he denies any fever or night sweats Objective - Vital Signs Vital signs: Vital Signs Temp 97.6 F 07/29/20 14:25 Pulse 79 07/29/20 14:25 Resp 18 07/29/20 14:25 BP 111/69 07/29/20 14:25 Pulse Ox 97 07/29/20 14:25 - Exam Physical Examinations : -Constitutiona : Cooperative , not in acute distress . -HEENT : nech : supple , no Lymphadenopathy , normal thyroid size . : eyes : no ptosis , no icterus, no photophobia . - neurologic : Cranial nerve II to XII intact , no focal neurological deffecit . -psychatric : alert , oriented X 3 , appropriate affect , intact judgment and insight . -Lymphatic : no Lymphadenopathy . - musculoskeltal : Lumber spine moter stegnth lower extremities ,thigh and legs 5/5 Right side , 5/5 Left side deep tendon reflexes : normal Knee Jerk , normal ankle Jerk lumber facet Loading Test =positive Right , positive Left Range of motion of the lumbar spine Flexion 30 degrees, extension 10 degrees strait leg raising test = positive at 30 degree Assessment and Plan Plan: Assessment and plan=1-lumbar spondylosis with lumbar facet arthropathy. 2-atrial fibrillation on PRADAXA. Patient had more than 80% improvement in his low back pain after 2 diagnostic medial branch block Chin to be good candidate to had RFA of the medial branch lumbar area right side L2, L3 ,L4 ,L5 - PQRS measures = - Patient's medications are documented in the chart. -Tobacco use is negative and counseling.Given. -Patient's has not received pneumococcal vaccine. -Advanced care planning discussed, patient not eligible. -Opiate contract not signed. -Pain positive and follow-up visit/procedure is scheduled. -Patient's blood pressure measured [111/69 ] , and documented in the record ,and patient will follow up with the primary care. -Patient's weight was measured and body mass index [ 29.9 ] above the,normal limits and counseling was done. and patient instructed to follow-up with the primary care physician. -Patient was not identified as an unhealthy alcohol user Time with Patient: Less than 30
== END ==
LOC: PNWHC3 13:57
PROVIDERS: ATTEND Specialist
DX: M47.816 Spondylosis without myelopathy or radiculopathy, lumbar region (principal); I48.91 Unspecified atrial fibrillation
CPT/HCPCS: 99211

== ENCOUNTER 2020-09-06 06:14 | Day surgery (SDC) | payer OTHER ==
[2020-09-05 12:06] VITALS: BMI 29.9
[2020-09-06 06:36] VITALS: TEMP 97.9
[2020-09-06] MEDS ORDERED: fentaNYL (PF) 50 MCG/ML 2 ML AMP ONE (06:58)
[2020-09-06] MEDS ORDERED: MIDAZOLAM 2 MG/2 ML VIAL ONE (06:58)
[2020-09-06] MEDS ORDERED: ROPIVACAINE 5MG/ML 20ML VIAL ONE (07:02)
[2020-09-06] MEDS ORDERED: methylPREDNISolone ACETATE 40 MG/ML 1 ML VIAL ONE (07:02)
--- NOTE | 2020-09-06 07:27 | P.PCN ---
Date of Procedure: 09/06/20 Procedure(s) Performed: PREOPERATIVE DIAGNOSIS: 1-Lumbar Spondylosis with Facet Arthropathy without myelopathy. POSTOPERATIVE DIAGNOSIS: 1- Lumbar Spondylosis with Facet Arthropathy without myelopathy. PROCEDURES : Right Radiofrequency thermocoagulation, L2 , L3 , L4 , and L5 medial branch, with fluoroscopic guidance (fluoroscopy images available in the radiology department) ( to denervate the facet joint at Right L3-4 ,L4-5 ,and L5-S1 levels ). ANESTHESIA: Monitored anesthesia care as per anesthesia department. EBL: Minimal PROCEDURE INDICATION: The patient with low back pain secondary to lumbar facet arthropathy who had more than 50% relief of her pain with previous diagnostic lumbar medial branch block with bupivacaine. PROCEDURE DESCRIPTION / TECHNIQUE: The patient was seen and identified in the preoperative area. Risks, benefits, complications, including but not limited to risk of infection ,bleeding , allergic reactions to the medications and no complete pain releife , and alternatives were discussed with the patient, the patient agreed to proceed with the procedure and signed the consent. IV was started. Vital signs remained stable throughout the procedure. Patient was taken to the OR and time out was completed. The patient was placed in the prone position on the procedure table. The lumber area was prepped and draped in the usual sterile fashion. . Vital signs were closely monitored during the procedure .IV sedation was used during the procedure to decrease patients anxiety. Using AP and then oblique fluoroscopy, the `eye of the Audi dog corresponding to the connection between the superior and transverse articular processes of right L2 , L3, L4, and L5 were identified, marked, and localized with 1% lidocaine. Subsequently, a 18 [id number] radiofrequency cannula with a 10-mm active tip was advanced guided by fluoroscopy to each of the``eyes of the Audi dog at right L2 L3, L4, and L5. Each site then underwent sensory testing at 50 Hz and 0 to 1 volt and motor testing at 2.5 Hz and 0 to 3 volt with local stimulation, but no radicular symptoms down the legs. Thereafter each sites underwent radiofrequency thermocoagulation at 80 degrees celsius for 90 seconds after injecting 0.5 ml of PF Ropivacaine 1ml, then after the thermocoagulation done , 1 ml of the block solution containing Depo-Medrol 40 mg and 3 ml of Ropivacaine 0.5% was injected at the right L2 ,L3 , L4 , and L5 , levels aft er negative aspiration of CSF and blood and with no paresthesias. Cannulas were retracted while injecting lidocaine 1% until the needle is out. At the end of the procedure, the skin was cleansed and bandages were applied. COMPLICATIONS: No acute complications. DISPOSITION / PLANS: The patient was placed in a supine position and transferred to the recovery area in a stable condition for observation and was discharged from the recovery room after meeting discharge criteria. Home discharge instructions given to the patient by the staff. The patient was reexamined prior to discharge. The patient will schedule a follow up in the clinic in 2-4 weeks.
[2020-09-06] MEDS ORDERED: IV FLUID CONTINUATION 500 ML IV ONE (07:29)
--- NOTE | 2020-09-06 07:37 | FL ---
Fluoroscopy History: Lumbar Rad Freq 10sec fluoro time, 3 images scanned
[2020-09-06 07:40] VITALS: RESP 20
[2020-09-06 08:22] VITALS: BP 130/78; PULSE 80
== END 2020-09-06 08:01 | disposition home or self-care (01) ==
LOC: ORPAIN 06:14
PROVIDERS: ATTEND Specialist
DX: M47.816 Spondylosis without myelopathy or radiculopathy, lumbar region (principal); I48.91 Unspecified atrial fibrillation; I10 Essential (primary) hypertension; E78.5 Hyperlipidemia, unspecified; J44.9 Chronic obstructive pulmonary disease, unspecified; G47.33 Obstructive sleep apnea (adult) (pediatric); Z79.02 Long term (current) use of antithrombotics/antiplatelets; Z79.1 Long term (current) use of non-steroidal anti-inflammatories (NSAID); Z79.899 Other long term (current) drug therapy; Z88.6 Allergy status to analgesic agent; Z88.7 Allergy status to serum and vaccine; Z88.8 Allergy status to other drugs, medicaments and biological substances
CPT/HCPCS: 64635; 64636 ×2; J2250; J1030; J3010; J2795

== ENCOUNTER → 2020-09-30 | Outpatient (CLI) | payer OTHER ==
[2020-09-30 14:23] VITALS: BP 118/76; PULSE 54; RESP 18; TEMP 98
--- NOTE | 2020-09-30 14:47 | P.PN ---
Subjective Progress Note Date: 09/30/20 This is a follow-up visit for this 60 years old male with a chronic history of severe low back pain history close with lumbar spondylosis and lumbar facet arthropathy, status post RFA medial branch block lumbar area on the right side at L2, L3, L4, L5, , patient noted 90% relief of his low back pain after the RFA medial branch block, patient currently complaining of severe low back pain mainly on the left side which he did not have before, the pain in the left side is constant localized in the low back area, denies any initiating event, he denies any motor or sensory deficit he denies any fever or night sweats Objective Physical Examinations : -Constitutiona : Cooperative , not in acute distress . -HEENT : nech : supple , no Lymphadenopathy , normal thyroid size . : eyes : no ptosis , no icterus, no photophobia . - neurologic : Cranial nerve II to XII intact , no focal neurological deffecit . -psychatric : alert , oriented X 3 , appropriate affect , intact judgment and insight . -Lymphatic : no Lymphadenopathy . - musculoskeltal : Lumber spine moter stegnth lower extremities ,thigh and legs 5/5 Right side , 5/5 Left side deep tendon reflexes : normal Knee Jerk , normal ankle Jerk lumber facet Loading Test =positive Right , positive Left Range of motion of the lumbar spine Fl exion 30 degrees, extension 10 degrees strait leg raising test = positive at 30 degree Assessment and Plan Plan: Assessment and plan= 1-lumbar spondylosis with lumbar facet arthropathy. 2-atrial fibrillation on PRADAXA. Status post RFA of the right-sided medial branch lumbar area at L2,L 3, L4, L5 Patient reported that the pain improved to within 90% on the right side and his currently having pain on the left side only Patient will be good candidate to have diagnostic medial branch block lumbar area on the left side at L2, L3, L4, L5 - PQRS measures = - Patient's medications are documented in the chart. -Tobacco use is negative and counseling.Given. -Patient's has not received pneumococcal vaccine. -Advanced care planning discussed, patient not eligible. -Opiate contract not signed. -Pain positive and follow-up visit/procedure is scheduled. -Patient's blood pressure measured [118/76 ] , and documented in the record ,and patient will follow up with the primary care. -Patient's weight was measured and body mass index [ 25.5 ] above the,normal limits and counseling was done. and patient instructed to follow-up with the primary care physician. -Patient was not identified as an unhealthy alcohol user Objective - Vital Signs Vital signs: Vital Signs Temp 98.0 F 09/30/20 14:17 Pulse 54 L 09/30/20 14:17 Resp 18 09/30/20 14:17 BP 118/76 09/30/20 14:17 Pulse Ox 95 09/30/20 14:17 Intake & Output 09/29/20 09/30/20 09/30/20 18:59 06:59 18:59 Weight 115.666 kg
== END ==
LOC: PNWHC3 14:02
PROVIDERS: ATTEND Specialist
DX: M47.816 Spondylosis without myelopathy or radiculopathy, lumbar region (principal); I48.91 Unspecified atrial fibrillation; Z98.890 Other specified postprocedural states; Z88.8 Allergy status to other drugs, medicaments and biological substances; Z88.6 Allergy status to analgesic agent; Z88.7 Allergy status to serum and vaccine; Z87.891 Personal history of nicotine dependence; Z79.01 Long term (current) use of anticoagulants
CPT/HCPCS: 99211

== ENCOUNTER 2020-10-18 07:21 | Day surgery (SDC) | payer OTHER ==
[2020-10-17 10:46] VITALS: BMI 31.0
[2020-10-18] MEDS ORDERED: LACTATED RINGERS 1,000 ML IV ONE (07:39)
[2020-10-18 07:40] VITALS: TEMP 97.7
[2020-10-18] MEDS ORDERED: ROPIVACAINE 5MG/ML 20ML VIAL ONE (07:56)
[2020-10-18] MEDS ORDERED: TRIAMCINOLONE ACETONIDE 40 MG/ML 1 ML VIAL ONE (07:56)
[2020-10-18] MEDS ORDERED: IOPAMIDOL M200 10 ML VIAL ONE (07:56)
--- NOTE | 2020-10-18 08:09 | P.PCN ---
Date of Procedure: 10/18/20 Description of Procedure: PREOPERATIVE DIAGNOSIS : Lumbar spondylosis with Facet Arthropathy without myelopathy POSTOPERATIVE DIAGNOSIS: same PROCEDURE: first LEFT Diagnostic lumbar medial branch block with fluoroscopy at L2, L3, L4, L5 which covers facets L3-4 and L4-5 and L5-S1 ANESTHESIA: Local anesthetic; moderate IV sedation with anesthesia team Fluoroscopy was used for the procedure and images were saved in the radiology portion of the chart. Surgeon: Roderick Valadez MD PROCEDURE INDICATION: Lumbar back pain without radiculopathy, not responsive to conservative management. PROCEDURE DESCRIPTION: the patient was seen and identified in the preop holding area , risks and benefits and possible complications of the procedure and alternatives were discussed with the patient, and the patient agreed to proceed with the procedure and signed the consent . IV was started , vital signs were monitored during the procedure and fluoroscopy was used to maximize the benefit and accuracy of the needle placement, and sedation was given to decrease patient anxiety. Patient was taken to the procedure room and placed in prone position. The lumbar region was prepped using chlorhexidineX-2. Under strict sterile technique using AP fluoroscopy the bilateral sacral ala were identified and using ipsilateral oblique fluoroscopy ,the junction of the transverse process and the superior articulating process of the L4, L5 vertebra which corresponds to the fluoroscopy image of the eye of the Audi dog for the medial branches were identified. Subsequently, after local infiltration of skin with lidocaine 1% 0.2 mL at each level , a 25-gauge 3.5" Quincke-type needle was placed at the junction of the base of the transverse process and the superior articular process at the appropriate level as well as the sacral ala, and the needle was advanced until the periosteum contacted, needle placement confirmed with AP and oblique fluoroscopy, 0.2 mL of Isovue 200 per level was injected which revealed no vascular uptake and after negative aspiration. I sunshine up 3 mL of 0.5% ropi vacaine and 1 mL of 40 mg/mL kenalog and injected 1 mL of this injectate at each level and the needle subsequently removed . A total of 3 levels unilaterally At the end of the procedure and the needles were removed and a bandage applied after the skin was cleaned. The patient was taken to recovery room in stable condition and monitors in the recovery room for 20-30 minutes and discharged home in stable condition after discharge criteria met and patient will follow up in clinic in 2 weeks EBL: Minimal COMPLICATION: None.
[2020-10-18 08:16] VITALS: RESP 16
[2020-10-18 08:27] VITALS: BP 133/86; PULSE 78
--- NOTE | 2020-10-18 08:29 | FL ---
EXAMINATION TYPE: FL guided pain mgmt statistic DATE OF EXAM: 10/18/2020 FLUOROSCOPY Fluoroscopy time of 7 seconds was used during left-sided lumbar facet blocks. 2 image/s document/s t he procedure.
== END 2020-10-18 08:29 | disposition home or self-care (01) ==
LOC: ORPAIN 07:21
PROVIDERS: ATTEND Anesthesiology
DX: M47.816 Spondylosis without myelopathy or radiculopathy, lumbar region (principal); Z79.02 Long term (current) use of antithrombotics/antiplatelets; Z88.6 Allergy status to analgesic agent; Z88.8 Allergy status to other drugs, medicaments and biological substances
CPT/HCPCS: 64493; 64494; 64495; J3301; Q9966; J2795

== ENCOUNTER 2020-10-28 19:40 | Emergency (ER) | payer OTHER ==
[2020-10-28 20:40] VITALS: RESP 18; TEMP 98.4
[2020-10-28] MEDS ORDERED: ACET/COD 300 MG/30 MG STARTER PACK 6 TAB BTL PO STA (21:03)
[2020-10-28] MEDS ORDERED: GELATIN SPONGE,ABSORB (SMALL) 1 EACH SPONGE TOPICAL STA (21:03)
--- NOTE | 2020-10-28 21:27 | XR ---
EXAMINATION TYPE: XR finger LT DATE OF EXAM: 10/28/2020 COMPARISON: NONE HISTORY: . Amputation TECHNIQUE: 3 views FINDINGS: I see no fracture nor dislocation. There is soft tissue laceration at the tip of the finger . The tuft appears intact. IMPRESSION: Laceration deformity. Soft tissue amputation deformity. No fracture.
--- NOTE | 2020-10-28 21:49 | ED ---
Upper Extremity HPI - General Chief Complaint: Extremity Injury, Upper Stated Complaint: Cut top of finger off Time Seen by Provider: 10/28/20 20:45 Source: patient Mode of arrival: ambulatory Limitations: no limitations - History of Present Illness Initial Comments: 60-year-old male patient presents to the emergency department today for evaluation after accidentally cutting off the tip of his left ring finger. Should states that he accidentally caught his finger on the aluminum propeller of a remote control boat. States he is having a lot of pain to the area. Does take pradaxa. Denies significant bleeding. Denies difficulty with range of motion. Denies numbness or tingling. Denies any other injuries or concerns. States his tetanus vaccine is up-to-date. - Related Data Home Medications Medication Instructions Recorded Confirmed Atorvastatin [Lipitor] 40 mg PO HS 02/01/18 10/17/20 Escitalopram [Lexapro] 10 mg PO DAILY 11/17/19 10/17/20 Dabigatran [Pradaxa] 150 mg PO BID 02/28/20 10/17/20 Furosemide [Lasix] 40 mg PO QAM 03/29/20 10/17/20 Ibuprofen [Motrin] 600 mg PO Q6H PRN 03/29/20 10/17/20 amLODIPine [Norvasc] 2.5 mg PO QAM 03/29/20 10/17/20 traZODone HCL 50 mg PO HS PRN 03/29/20 10/17/20 Allergies Allergy/AdvReac Type Severity Reaction Status Date / Time amiodarone Allergy Rash/Hives Verified 10/28/20 20:41 pneumococcal vaccine Allergy SWELLING Verified 10/28/20 20:41 AT SITE aspirin AdvReac heartburn Verified 10/28/20 20:41 Review of Systems ROS Statement: Those systems with pertinent positive or pertinent negative responses have been documented in the HPI. ROS Other: All systems not noted in ROS Statement are negative. Past Medical History Past Medical History: Atrial Fibrillation, COPD, Hyperlipidemia, Hypertension, Sleep Apnea/CPAP/BIPAP Additional Past Medical History / Comment(s): Doesn't use CPAP, past hx kidney stone. History of Any Multi-Drug Resistant Organisms: None Reported Past Surgical History: Cardiac Ablation, Joint Replacement, Orthopedic Surgery Additional Past Surgical History / Comment(s): Cardioversion, cardiac ablation X2, bilateral knee replacements, ORIF right ankle. Past Anesthesia/Blood Transfusion Reactions: No Reported Reaction Past Psychological History: Depression, PTSD Smoking Status: Former smoker Past Alcohol Use History: None Reported Past Drug Use History: Marijuana - Past Family History Mother Family Medical History: Cancer, Thyroid Disorder Additional Family Medical History / Comment(s): Thyroid cancer. Father Family Medical History: AFIB, Congestive Heart Failure (CHF), CVA/TIA, Hypertension General Exam Limitations: no limitations General appearance: alert, in no apparent distress, other (This is a well- developed, well-nourished adult male patient in no acute distress. Vital signs upon presentation are temperature 98.4F, pulse 111, respirations 18, blood pressure 123/77, pulse ox 97% on room air.) Respiratory exam: Present: normal lung sounds bilaterally. Absent: respiratory distress, wheezes, rales, rhonchi, stridor Cardiovascular Exam: Present: regular rate, normal rhythm, normal heart sounds. Absent: systolic murmur, diastolic murmur, rubs, gallop, clicks Extremities exam: Present: full ROM, normal capillary refill, other (There is a skin avulsion noted to the distal tip of the left ring finger. No active bleeding. Full range of motion is intact. Radial pulses 2+. Skin is otherwise pink, warm, dry.). Absent: tenderness, pedal edema, joint swelling, calf te nderness Neurological exam: Present: alert, oriented X3, CN II-XII intact Psychiatric exam: Present: normal affect, normal mood Skin exam: Present: warm, dry, intact, normal color. Absent: rash Course Vital Signs 10/28/20 10/28/20 20:35 21:40 Temperature 98.4 F Pulse Rate 111 H 103 H Respiratory 18 18 Rate Blood Pressure 123/77 115/88 O2 Sat by Pulse 97 97 Oximetry Medical Decision Making - Medical Decision Making 60-year-old male patient presents for evaluation after cutting his finger on the propeller of a remote control boat. Physical examination did reveal a skin avulsion consistent with fingertip amputation. X-ray was obtained and showed no bony involvement. Dressing was applied using Gelfoam. He'll be discharged follow-up with orthopedics for further evaluation. Return parameters were discussed in detail. He verbalizes understanding and agrees with this plan. My attending is Dr. Martin. - Radiology Data Radiology results: report reviewed, image reviewed Laceration deformity noted to the tip of the left ring finger. Disposition Clinical Impression: Fingertip amputation, Laceration of left ring finger Disposition: HOME SELF-CARE Condition: Good Instructions (If sedation given, give patient instructions): Finger Amputation (ED) Additional Instructions: Call orthopedics tomorrow, inform them you have a "fingertip amputation not involving the bone", make an appointment for evaluation. Keep dressing in place for two days unless it becomes soaked with blood. Remove foam dressing after wetting it with water. If bleeding persists reapply foam dressing and hold pressure. Then cleanse twice daily with warm water and antibacterial soap. Return to the emergency department for any new, worsening, or concerning symptoms. Is patient prescribed a controlled substance at d/c from ED?: No Referrals: [facility],Clinic [Primary Care Provider] - 1-2 days Bartolome Carter DO [Doctor of Osteopathic Medicine] - 1-2 days Time of Disposition: 21:48
[2020-10-28 21:58] VITALS: BP 115/88; PULSE 103
== END 2020-10-28 21:59 | disposition home or self-care (01) ==
LOC: SUPCPDRO 19:40 → EC 19:40
DX: S61.215A Laceration without foreign body of left ring finger without damage to nail, initial encounter (principal); Z89.022 Acquired absence of left finger(s); I10 Essential (primary) hypertension; E78.5 Hyperlipidemia, unspecified; I48.91 Unspecified atrial fibrillation; J44.9 Chronic obstructive pulmonary disease, unspecified; F32.9 Major depressive disorder, single episode, unspecified; F12.90 Cannabis use, unspecified, uncomplicated; Z87.891 Personal history of nicotine dependence; Z82.49 Family history of ischemic heart disease and other diseases of the circulatory system; Z79.1 Long term (current) use of non-steroidal anti-inflammatories (NSAID); Z79.899 Other long term (current) drug therapy; Z88.6 Allergy status to analgesic agent; Z88.8 Allergy status to other drugs, medicaments and biological substances; W26.8XXA Contact with other sharp object(s), not elsewhere classified, initial encounter
CPT/HCPCS: 99283

== ENCOUNTER 2020-11-08 06:29 | Day surgery (SDC) | payer OTHER ==
[2020-11-06 17:41] VITALS: BMI 30.4
[2020-11-08 06:52] VITALS: RESP 16; TEMP 97.8
[2020-11-08] MEDS ORDERED: TRIAMCINOLONE ACETONIDE 40 MG/ML 1 ML VIAL ONE (07:34)
[2020-11-08] MEDS ORDERED: ROPIVACAINE 5MG/ML 20ML VIAL ONE (07:34)
--- NOTE | 2020-11-08 07:53 | P.PCN ---
Date of Procedure: 11/08/20 Surgeon: Brian Valencia Pathology: none sent Condition: stable Disposition: PACU Description of Procedure: PREOPERATIVE DIAGNOSIS : Lumbar spondylosis with Facet Arthropathy without myelopathy POSTOPERATIVE DIAGNOSIS: same PROCEDURE: Second LEFT Diagnostic lumbar medial branch block with fluoroscopy at L2, L3, L4, L5 which covers facets L3-4 and L4-5 and L5-S1 ANESTHESIA: Local anesthetic; moderate IV sedation with anesthesia team Fluoroscopy was used for the procedure and images were saved in the radiology portion of the chart. PROCEDURE INDICATION: Lumbar back pain without radiculopathy, not responsive to conservative management. PROCEDURE DESCRIPTION: the patient was seen and identified in the preop holding area , risks and benefits and possible complications of the procedure and alternatives were discussed with the patient, and the patient agreed to proceed with the procedure and signed the consent . IV was started , vital signs were monitored during the procedure and fluoroscopy was used to maximize the benefit and accuracy of the needle placement, and sedation was given to decrease patient anxiety. Patient was taken to the procedure room and placed in prone position. The lumbar region was prepped using chlorhexidineX-2. Under strict sterile technique using AP fluoroscopy the sacral ala was identified and using ipsilateral oblique fluoroscopy ,the junction of the transverse process and the superior articulating process of the L3,L4,and L5 vertebra which corresponds to the fluoroscopy image of the eye of the Audi dog for the medial branches were identified. Subsequently, after local infiltration of skin with lidocaine 1% 0.2 mL at each level , a 25-gauge 3.5" Quincke-type needle was placed at the junction of the base of the transverse process and the superior articular process at the appropriate level as well as the sacral ala, and the needle was advanced until the periosteum contacted, needle placement confirmed with AP and oblique fluoroscopy, 0.2 mL of Isovue 200 per level was injected which revealed no vascular uptake and after negative aspiration. I sunshine up 3 mL of 0.5% ropivacaine and 1 mL of 40 mg/mL kenalog and injected 1 mL of this injectate at each level and the needle subsequently removed . A total of 3 levels unilaterally At the end of the procedure and the needles were removed and a bandage applied after the skin was cleaned. The patient was taken to recovery room in stable condition and monitors in the recovery room for 20-30 minutes and discharged home in stable condition after discharge criteria met and patient will follow up in clinic in 2 weeks EBL: Minimal COMPLICATION: None.
[2020-11-08 08:12] VITALS: BP 114/82; PULSE 85
--- NOTE | 2020-11-08 08:17 | FL ---
Fluoroscopy History: Marcial lumbar Facet 7sec fluoro time,3 images to pacs.
== END 2020-11-08 08:22 | disposition home or self-care (01) ==
LOC: ORPAIN 06:29
PROVIDERS: ATTEND Anesthesiology
DX: M47.816 Spondylosis without myelopathy or radiculopathy, lumbar region (principal)
CPT/HCPCS: 64493; 64494; 64495; J3301; J2795

== ENCOUNTER 2020-11-29 10:17 | Day surgery (SDC) | payer OTHER ==
[2020-11-26 08:30] VITALS: BMI 29.8
[~2020-11-29 10:17] MED LIST changes: -LACTATED RINGERS 1,000 ML IV SCH; +SODIUM CHLORIDE 0.9% 1,000 ML IV SCH
[2020-11-29 11:16] LABS: African American GFR (CKD) >90 (>60 ml/min/1.73 sqM); Anion Gap 8 mmol/L; Blood Urea Nitrogen 16 mg/dL (9-20); Calcium 9.6 mg/dL (8.4-10.2); Carbon Dioxide 27 mmol/L (22-30); Chloride 106 mmol/L (98-107); Glucose 104 mg/dL (74-99); Non-African American GFR(CKD) >90 (>60 ml/min/1.73 sqM); Potassium 4.2 mmol/L (3.5-5.1); Sodium 141 mmol/L (137-145)
[2020-11-29] MEDS ORDERED: SODIUM CHLORIDE 0.9% 500 ML 500 ML IV ONE ×2 (11:40)
[2020-11-29] MEDS ORDERED: PROPOFOL 10 MG/ML 20 ML VIAL IV ONE (12:00)
[2020-11-29 12:36] VITALS: TEMP 98
[2020-11-29 12:47] VITALS: RESP 16
--- NOTE | 2020-11-29 13:06 | PCN ---
PROCEDURE NOTE DATE OF SERVICE: 11/29/2020 PERFORMING PHYSICIAN: Prasanth Estrada M.D. PROCEDURE PERFORMED: Successful cardioversion of atrial fibrillation. COMPLICATIONS: None. LEVEL OF SEDATION: The procedure was performed under general anesthesia. PROCEDURE DESCRIPTION: After obtaining informed consent, the patient was brought to the recovery room. The patient was placed under sedation using propofol. After that I did cardioversion using initially 75 joules and subsequently 120 and subsequently 200. The patient cardioverted from atrial fibrillation to normal sinus mechanism using 200 joules on third attempt. CONCLUSION: Successful cardioversion of atrial fibrillation to normal sinus mechanism using 300 joules on third attempt. MMODL / IJN: [id number] /
[2020-11-29 14:35] VITALS: BP 119/80; PULSE 62
== END 2020-11-29 13:53 | disposition home or self-care (01) ==
LOC: CATHCVL 10:17
PROVIDERS: ATTEND Internal Medicine Interventional Cardiology
DX: I48.19 Other persistent atrial fibrillation (principal)
CPT/HCPCS: 92960; 80048; J2704

== ENCOUNTER → 2020-12-02 | Outpatient (CLI) | payer OTHER ==
[2020-12-02 14:02] VITALS: BP 125/74; PULSE 57; RESP 18; TEMP 98.2
--- NOTE | 2020-12-02 14:07 | P.PAINPG ---
Subjective Progress Note Date: 12/02/20 This is a follow-up visit for this 60 years old male with a chronic history of severe low back pain history close with lumbar spondylosis and lumbar facet arthropathy, status post RFA medial branch block lumbar area on the right side at L2, L3, L4, L5, which gave him 90% relief. He was experiencing severe left- sided pain so we performed medial branch blocks 2 at the same levels on the left side. She notes that for both medial branch blocks in the day of the greater than 90% relief and it helped with his overall functionality. He is looking forward to the ablations because of her successful on the other side and significantly improved his ability to do conservative measures such as physical therapy and home exercises. he denies any motor or sensory deficit he denies any fever or night sweats Objective Physical Examinations : -Constitutiona : Cooperative , not in acute distress . -HEENT : nech : supple , no Lymphadenopathy , normal thyroid size . : eyes : no ptosis , no icterus, no photophobia . - neurologic : Cranial nerve II to XII intact , no focal neurological deffecit . -psychatric : alert , oriented X 3 , appropriate affect , intact judgment and insight . -Lymphatic : no Lymphadenopathy . - musculoskeltal : Lumber spine moter stegnth lower extremities ,thigh and legs 5/5 Right side , 5/5 Left side deep tendon reflexes : normal Knee Jerk , normal ankle Jerk lumber facet Loading Test =positive Right , positive Left Range of motion of the lumbar spine Flexion 30 degrees, extension 10 degrees strait leg raising test = positive at 30 degree Assessment and Plan Plan: Assessment and plan= 1-lumbar spondylosis with lumbar facet arthropathy. 2-atrial fibrillation on PRADAXA. Status post RFA of the right-sided medial branch lumbar area at L2,L 3, L4, L5 Patient reported that the pain improved to within 90% on the right side and his currently having pain on the left side only Patient will be good candidate to have RFA on left side at L2, L3, L4, L5 I have spent 24 minutes on patient care today. The time was used to review the medical records including relevant urine studies and prescription history, review of the available imaging, evaluation and examination of the patient, coordination of care with the medical staff and if applicable referring physicians, as well as creation of the medical record. - PQRS measures = - Patient's medications are documented in the chart. -Tobacco use is negative and counseling.Given. -Patient's has not received pneumococcal vaccine. -Advanced care planning discussed, patient not eligible. -Opiate contract not signed. -Pain positive and follow-up visit/procedure is scheduled. -Patient's blood pressure measured [118/76 ] , and documented in the record ,and patient will follow up with the primary care. -Patient's weight was measured and body mass index [ 25.5 ] above the,normal limits and counseling was done. and patient instructed to follow-up with the primary care physician. -Patient was not identified as an unhealthy alcohol user PQRS Measure Charge Sheet PQRS Narrative: Smoking Status Former smoker Pain Intensity [Lower Back] 6 Scale Used Numeric (1 - 10) Hx Alcohol Use (MH) No Home Medications: Ambulatory Orders Atorvastatin [Lipitor] 40 mg PO HS 02/01/18 Dabigatran [Pradaxa] 150 mg PO BID 02/28/20 Furosemide [Lasix] 40 mg PO QAM 03/29/20 Ibuprofen [Motrin] 600 mg PO Q4H PRN 03/29/20 amLODIPine [Norvasc] 2.5 mg PO QAM 03/29/20 traZODone HCL 150 mg PO HS PRN 03/29/20 Flecainide [Tambocor] 50 mg PO Q12HR 11/26/20 Sertraline [Zoloft] 50 mg PO DAILY 11/26/20 Controlled Substance Measures - Controlled Substance Measures Is patient prescribed a controlled substance at discharge?: No
== END ==
LOC: PNWHC3 13:53
PROVIDERS: ATTEND Anesthesiology
DX: M47.816 Spondylosis without myelopathy or radiculopathy, lumbar region (principal); I48.91 Unspecified atrial fibrillation; Z87.891 Personal history of nicotine dependence; Z88.7 Allergy status to serum and vaccine; Z88.6 Allergy status to analgesic agent
CPT/HCPCS: 99211

== ENCOUNTER 2021-01-24 07:56 | Day surgery (SDC) | payer OTHER ==
[2021-01-23 10:24] VITALS: BMI 29.3
[~2021-01-24 07:56] MED LIST changes: +LACTATED RINGERS 1,000 ML IV SCH; -SODIUM CHLORIDE 0.9% 1,000 ML IV SCH
[2021-01-24] MEDS ORDERED: LIDOCAINE 1% (10MG/ML) FOR IV START INTRADERMA ONE (08:28)
[2021-01-24 08:34] VITALS: TEMP 97.9
[2021-01-24] MEDS ORDERED: TRIAMCINOLONE ACETONIDE 40 MG/ML 1 ML VIAL ONE (09:00)
[2021-01-24] MEDS ORDERED: ROPIVACAINE 5MG/ML 20ML VIAL ONE (09:00)
[2021-01-24] MEDS ORDERED: fentaNYL (PF) 50 MCG/ML 2 ML AMP ONE (09:02)
[2021-01-24] MEDS ORDERED: MIDAZOLAM 2 MG/2 ML VIAL ONE (09:02)
--- NOTE | 2021-01-24 09:27 | P.PCN ---
Date of Procedure: 01/24/21 Procedure(s) Performed: PREOPERATIVE DIAGNOSIS: 1-Lumbar Spondylosis with Facet Arthropathy without myelopathy. POSTOPERATIVE DIAGNOSIS: 1- Lumbar Spondylosis with Facet Arthropathy without myelopathy. PROCEDURES : Left Radiofrequency thermocoagulation, L2 , L3 , L4 , and L5 medial branch, with fluoroscopic guidance (fluoroscopy images available in the radiology department) ( to denervate the facet joint at Left L3-4 ,L4-5 ,and L5-S1 levels ). ANESTHESIA: Monitored anesthesia care as per anesthesia department. EBL: Minimal PROCEDURE INDICATION: The patient with low back pain secondary to lumbar facet arthropathy who had more than 50% relief of her pain with previous diagnostic lumbar medial branch block with bupivacaine. PROCEDURE DESCRIPTION / TECHNIQUE: The patient was seen and identified in the preoperative area. Risks, benefits, complications, including but not limited to risk of infection ,bleeding , allergic reactions to the medications and no complete pain releife , and alternatives were discussed with the patient, the patient agreed to proceed with the procedure and signed the consent. IV was started. Vital signs remained stable throughout the procedure. Patient was taken to the OR and time out was completed. The patient was placed in the prone position on the procedure table. The lumber area was prepped and draped in the usual sterile fashion. . Vital signs were closely monitored during the procedure .IV sedation was used during the procedure to decrease patients anxiety. Using AP and then oblique fluoroscopy, the `eye of the Audi dog corresponding to the connection between the superior and transverse articular processes of Left L2 , L3, L4, and L5 were identified, marked, and localized with 1% lidocaine. Subsequently, a [id number] radiofrequency cannula with a 10-mm active tip was advanced guided by fluoroscopy to each of the``eyes of the Audi dog at Left L2 L3, L4, and L5. Each site then underwent sensory testing at 50 Hz and 0 to 1 volt and motor testing at 2.5 Hz and 0 to 3 volt with local stimulation, but no radicular symptoms down the legs. Thereafter each sites underwent radiofrequency thermocoagulation at 80 degrees celsius for 90 seconds after injecting 0.5 ml of PF Ropivacaine 1ml, then after the thermocoagulation done , 1 ml of the block solution containing Kenalog 40 mg and 4 ml of Ropivacaine 0.5% was injected at the Left L2 ,L3 , L4 , and L5 , levels after negative aspiration of CSF and blood and with no paresthesias. Cannulas were retracted while injecting lidocaine 1% until the needle is out. At the end of the procedure, the skin was cleansed and bandages were applied. COMPLICATIONS: No acute complications. DISPOSITION / PLANS: The patient was placed in a supine position and transferred to the recovery area in a stable condition for observation and was discharged from the recovery room after meeting discharge criteria. Home discharge instructions given to the patient by the staff. The patient was reexamined prior to discharge. The patient will schedule a follow up in the clinic in 2-4 weeks.
[2021-01-24] MEDS ORDERED: IV FLUID CONTINUATION 1,000 ML IV ONE ×2 (09:32)
[2021-01-24 09:59] VITALS: BP 111/31; PULSE 51; RESP 18
--- NOTE | 2021-01-24 10:01 | FL ---
Fluoroscopy INDICATION: Pain FINDINGS: Fluoroscopy time: 25 seconds. Images obtained: 3. IMPRESSIONS: 1. Documentation of fluoroscopy.
== END 2021-01-24 10:19 | disposition home or self-care (01) ==
LOC: ORPAIN 07:56
PROVIDERS: ATTEND Specialist
DX: M47.816 Spondylosis without myelopathy or radiculopathy, lumbar region (principal); I49.9 Cardiac arrhythmia, unspecified; I10 Essential (primary) hypertension; E78.5 Hyperlipidemia, unspecified; I48.91 Unspecified atrial fibrillation; M19.90 Unspecified osteoarthritis, unspecified site; M51.36 Other intervertebral disc degeneration, lumbar region
CPT/HCPCS: 64635; 64636; J2250; J3301; J3010; J2795

== ENCOUNTER → 2021-02-03 | Outpatient (CLI) | payer OTHER ==
[2021-02-03 15:00] VITALS: BP 115/70; PULSE 60; RESP 18; TEMP 97.7
--- NOTE | 2021-02-03 15:13 | P.PAINPG ---
Subjective Progress Note Date: 02/03/21 Principal diagnosis: Lumbar back pain Mr. Astorga is a 60 year old pleasant male patient came to [facility] pain management clinic for follow-up, and postprocedure evaluation. Patient had left-sided lumbar L4-L5, and L5-S1 medial branch radiofrequency ablation done on 01/24. As per patient he had no pain on left side but complaining pain on the right lumbar area. Pain sometimes radiating up to the gluteal area on the right side. He denied any weakness in his lower extremities. Patient described pain as aching, sharp, throbbing type of pain. Patient rated pain 5-6 out of 10 in severity. Which may very her pain level from 3-8 out of 10 in severity. Pain increases with activities, and standing, walking, sitting, bending forward, and lifting. Pain decreases with medications, and interventional procedures. Pain medications helping to some extent. Because of the pain patient is feeling lack of sleep and interest and energy. Denied any bowel or bladder problems. Patient denies any adverse effects to medications. Not using any walking aids for walking. Patient denied any suicidal / homicidal tendency at this time. There are no signs of narcotic diversion/misuse/overuse and no new-onset weakness, bowel/bladder incontinence, saddle anesthesia, or no red flag symptoms. Objective - Vital Signs Vital signs: Vital Signs Temp 97.7 F 02/03/21 14:55 Pulse 60 02/03/21 14:55 Resp 18 02/03/21 14:55 BP 115/70 02/03/21 14:55 Pulse Ox 97 02/03/21 14:55 - Exam General: Well-developed, well-nourished, no acute distress HEENT: Normocephalic, and atraumatic Neck: Supple, no neck swelling Psychiatric: Appropriate mood, and affect FLUID POWER MECHANIC: No focal neurological deficits Musculoskeletal: Upper extremity: Normal strength, and range of motion. Sensation grossly intact Lower extremity: Normal strength, and decreased range of motion secondary to pain Lumbar spine: Paravertebral tenderness: positive Lumbar facet load test : positive Sacroiliac joint tenderness: Positive Thigh thrust test: Negative SI joint compression test: Negative Fabere test: Negative Multiple trigger point positive on right side lower lumbar area - Constitutional Constitutional Comment(s): 12 point review of symptoms negative except as mentioned in history of present illness Assessment and Plan Assessment: Lumbar spondylosis without myelopathy Myofascial pain syndrome Chronic pain syndrome Plan: #1 Diagnoses, prognosis, and multiple treatment options including but not limited to physical therapy, interventional therapy, adjunct medication therapy, narcotic medication, and surgical options were discussed with the patient. And all questions were answered to the patient's satisfaction. #2 treatment plan agreement : Patient was thoroughly discussed regarding the treatment options, alternatives, and importance of exercises as tolerated. Patient clearly understood. #3 Patient was counseled on importance of regular exercise. Including fawad chi, aerobic exercises as tolerated. Which helps for chronic pain, and overall well- being. #4 investigations: MAPS- reviewed , urine drug test-not done #5 diagnostic tests: None #6 consultation : None # 7 interventional procedures: Right side L4-L5, and L5-S1 medial branch radiofrequency ablation. Procedure, complications, alternatives discussed with the patient. #8 medications #1 Flexeril 10 mg by mouth every 12 hours as needed for muscle spasm dispense 60 with no refill Medication side effects, complications, long-term consequences discussed with the patient. Patient recommended to contact the pain clinic if noticed any issues with given medications. #9 morphine milligrams equivalents dose ( MME) per day: 0. # 10 patient recommended to try percussion massage device #11 disposition: scheduled to follow up with pain clinic in 4 weeks duration. Time with Patient: Less than 30 PQRS Measure Charge Sheet Measure #130: Documentation of Current Meds in Medical Chart: Patient's medications documented in chart Measure #226: Tobacco Use: Screen & Cessation Intervention: Pt not a tobacco user Measure #111: Pneumonia Vaccination: Pneumococcal vaccine NOT administered or previously given Measure #47: Advance Care Plan: Advance care planning discussed & documented, pt chose/unable to give Measure #412: Opioid Treatment Agreement: No documentation of signed opioid treatment agreement Measure #408: Opioid Therapy Follow-up Evaluation: Patient had NO f/u eval minimum every 3 months during opioid therapy Measure #317: Preventitive Care & Scrn High Bld Press & F/U: Pre-hypertensive or hypertensive BP documented, pt will f/u with PCP Measure #128: Body Mass Index (BMI) Screening & Follow-up: BMI documented within normal parameters Measure #131: Pain Assessment & Follow-up: Pain positive & plan documented Measure #431: Unhealthy Alcohol Use Preventative Care & Scrn: Patient not identified as an unhealthy alcohol user Mode of Arrival: Ambulatory - Pain Location Back Non-Pharmacological Interventions: Home Exercise, Inactivity, Physical Therapy, Stretching Pharmacological Interventions: Block PQRS Narrative: Smoking Status Former smoker Blood Pressure 115/70 Pain Intensity [Back] 9 Scale Used Numeric (1 - 10) Hx Alcohol Use (MH) No Home Medications: Ambulatory Orders Atorvastatin [Lipitor] 40 mg PO HS 02/01/18 Dabigatran [Pradaxa] 150 mg PO DAILY 02/28/20 Furosemide [Lasix] 40 mg PO QAM 03/29/20 amLODIPine [Norvasc] 2.5 mg PO QAM 03/29/20 traZODone HCL 150 mg PO HS PRN 03/29/20 Flecainide [Tambocor] 50 mg PO Q12HR 11/26/20 Controlled Substance Measures - Controlled Substance Measures Is patient prescribed a controlled substance at discharge?: No
== END ==
LOC: PNWHC3 14:17
DX: M47.816 Spondylosis without myelopathy or radiculopathy, lumbar region (principal); M79.18 Myalgia, other site; G89.4 Chronic pain syndrome; Z87.891 Personal history of nicotine dependence; Z88.8 Allergy status to other drugs, medicaments and biological substances; Z88.6 Allergy status to analgesic agent; Z88.7 Allergy status to serum and vaccine
CPT/HCPCS: 99211

== ENCOUNTER 2021-06-06 17:10 | Observation (INO) | payer OTHER ==
[2021-06-06] MEDS ORDERED: ASPIRIN 81 MG PO STA (17:57)
[2021-06-06 18:29] LABS: Basophils % (A) 0 %; Eosinophils # (A) 0.1 k/uL (0-0.7); Eosinophils % (A) 2 %; HCT 46.3 % (39.0-53.0); HGB 15.7 gm/dL (13.0-17.5); Lymphocytes # (A) 2.7 k/uL (1.0-4.8); Lymphocytes % (A) 30 %; MCH 31.6 pg (25.0-35.0); Mean Platelet Volume 8.5; Monocytes # (A) 0.5 k/uL (0-1.0); Monocytes % (A) 6 %; Neutrophils # (A) 5.3 k/uL (1.3-7.7); Neutrophils % (A) 59 %; Platelet Count 190 k/uL (150-450); RBC 4.98 m/uL (4.30-5.90); RDW 12.9 % (11.5-15.5); WBC 8.9 k/uL (3.8-10.6)
[2021-06-06 18:49] LABS: ALT 20 U/L (4-49); AST 26 U/L (17-59); African American GFR (CKD) >90 (>60 ml/min/1.73 sqM); Albumin 4.2 g/dL (3.5-5.0); Alkaline Phosphatase 102 U/L (38-126); Anion Gap 9 mmol/L; Blood Urea Nitrogen 19 mg/dL (9-20); Calcium 9.2 mg/dL (8.4-10.2); Carbon Dioxide 25 mmol/L (22-30); Chloride 104 mmol/L (98-107); Glucose 95 mg/dL (74-99); Non-African American GFR(CKD) >90 (>60 ml/min/1.73 sqM); Potassium 3.8 mmol/L (3.5-5.1); Sodium 138 mmol/L (137-145); Total Bilirubin 1.3 mg/dL (0.2-1.3); Total Protein 7.4 g/dL (6.3-8.2)
--- NOTE | 2021-06-06 18:51 | XR ---
EXAMINATION TYPE: XR chest 2V DATE OF EXAM: 06/06/2021 COMPARISON: 02/01/2018 HISTORY: 61 years Male. STUDY INDICATION GIVEN: Chest Pain . TECHNIQUE: Frontal and lateral chest radiographs. IMPRESSION: Patchy opacities are seen in the bibasilar lungs, greater on the right, these have decreased in the i nterval. The interval decrease suggests chronic lung changes. It is difficult to exclude a developing infiltrate within these opacities clinical correlation is therefore recommended. No other focal airspace opacity, pneumothorax or effusion. Scattered upper lobe lucencies suggest COPD/emphysema changes. The heart and mediastinum are normal in contour. No acute osseous normality seen.
[2021-06-06] MEDS ORDERED: ONDANSETRON 4 MG/2 ML VIAL IVP PRN (19:08)
[2021-06-06] MEDS ORDERED: ACETAMINOPHEN TAB 325 MG TAB PO PRN (19:08)
[2021-06-06] MEDS ORDERED: NALOXONE 0.4 MG/ML 1 ML VIAL IV PRN (19:08)
--- NOTE | 2021-06-06 19:11 | ED ---
General Adult HPI - General Chief complaint: Arrhythmia/Palpitations Stated complaint: Afib/chest pain Time Seen by Provider: 06/06/21 17:48 Source: patient, RN notes reviewed, old records reviewed Mode of arrival: ambulatory Limitations: no limitations - History of Present Illness Initial comments: Patient is a 61-year-old male with past medical history remarkable for paroxysmal atrial fibrillation requiring prior ablation as well as multiple cardioversions, hypertension who suffered accepted presents emergency Department complaining of an acute onset of chest pain approximately 2-1/2 hours ago. Described as sharp and achy substernally. It is since resolved. Denies any radiation of the pain. States then he felt like he was back in to atrial fibrillation based on palpitations as well as how he normally feels. Denies any nausea, vomiting, lightheadedness, syncopal episodes. Denies any current chest pain, shortness of breath. Is requesting to be cardioverted if he is in atrial fibrillation, as this is occurred previously. He otherwise is stable and is to acute concerns at this time. - Related Data Home Medications Medication Instructions Recorded Confirmed Dabigatran [Pradaxa] 150 mg PO DAILY 02/28/20 02/03/21 Furosemide [Lasix] 40 mg PO QAM 03/29/20 02/03/21 amLODIPine [Norvasc] 2.5 mg PO QAM 03/29/20 02/03/21 Atorvastatin [Lipitor] 40 mg PO HS 06/06/21 06/06/21 Flecainide Acetate 100 mg PO BID@1000,2200 06/06/21 06/06/21 Ibuprofen [Motrin] 600 mg PO Q4H PRN 06/06/21 06/06/21 Sertraline HCl [Zoloft] 50 mg PO DAILY 06/06/21 06/06/21 hydrOXYzine HCL [Atarax] 10 mg PO DIRECTED PRN 06/06/21 06/06/21 traZODone HCL [Desyrel] 50 mg PO HS PRN 06/06/21 06/06/21 Allergies Allergy/AdvReac Type Severity Reaction Status Date / Time amiodarone Allergy Rash/Hives Verified 06/06/21 19:10 pneumococcal vaccine Allergy SWELLING Verified 06/06/21 19:10 AT SITE aspirin AdvReac heartburn Verified 02/25/22 19:10 Review of Systems ROS Statement: Those systems with pertinent positive or pertinent negative responses have been documented in the HPI. Review of Systems: CONST: Denies fever EYES: Denies blurry vision ENT: Denies nasal congestion C/V: Denies Chest pain RESP: Denies shortness of breath GI: Denies abdominal pain : Denies dysuria SKIN: Denies rash. MSK: Denies joint pain. NEURO: Denies headache ROS Other: All systems not noted in ROS Statement are negative. Past Medical History Past Medical History: Atrial Fibrillation, COPD, Hyperlipidemia, Hypertension, Sleep Apnea/CPAP/BIPAP Additional Past Medical History / Comment(s): Doesn't use CPAP, past hx kidney stone. RECENT TRAUMA TO LEFT RING FINGER- STARTED ON ANTIBIOTIC. History of Any Multi-Drug Resistant Organisms: None Reported Past Surgical History: Cardiac Ablation, Joint Replacement, Orthopedic Surgery Additional Past Surgical History / Comment(s): Cardioversion, cardiac ablation X2, bilateral knee replacements, ORIF right ankle. Pain procedures. Past Anesthesia/Blood Transfusion Reactions: No Reported Reaction Past Psychological History: Depression, PTSD Smoking Status: Former smoker Past Alcohol Use History: None Reported Past Drug Use History: None Reported - Past Family History Mother Family Medical History: Cancer, Thyroid Disorder Additional Family Medical History / Comment(s): Thyroid cancer. Father Family Medical History: AFIB, Congestive Heart Failure (CHF), CVA/TIA, H ypertension General Exam - General Exam Comments Initial Comments: General: Appears in no acute distress. HEAD: Normal with no signs of head trauma. EYES: PERRLA, EOMI, conjunctiva normal, no discharge. ENT: Hearing grossly intact, normal oropharynx. RESPIRATORY: Clear breath sounds bilaterally. No wheezes, rales, or rhonchi. C/V: Irregular rate and rhythm. S1 and S2 auscultated. No peripheral edema. Peripheral pulses are 2+ and intact throughout. ABD: Abd is soft, nontender, nondistended EXT: Normal range of motion, no obvious deformity SKIN: No rashes or lesions observed on exposed skin. NEURO: Alert and oriented 4. No focal deficits. Limitations: no limitations Course Vital Signs 06/06/21 06/06/21 17:14 18:23 Temperature 97.5 F L Pulse Rate 105 H 80 Respiratory 18 18 Rate Blood Pressure 132/88 122/93 O2 Sat by Pulse 98 95 Oximetry Medical Decision Making - Medical Decision Making Based on the patient's presentation and physical exam, does appear that his back and atrial fibrillation, however he is rate controlled with rate averaging between 90 and 105. He has no other acute point at this time but did have an episode chest pain earlier. We will obtain a cardiac workup due to the chest pain episode. He will be given a dose of aspirin. He will likely require observation admission, and cardiology to determine if he was cardioverted t omorrow. He was in agreement this plan. Patient's EKG shows rate-controlled atrial flutter fibrillation with no signs of acute ischemia. Chest x-ray revealed no acute cardio pulmonary process. Lab oratory studies were remarkable for negative troponin and otherwise unremarkable labs. I discussed results with the patient. He is still in atrial fibrillation. Patient will be admitted for cardiac evaluation to observation telemetry. Cardiology was consulted. I spoke with the admitting team, DONNA josue of [facility] who accepted the admission. Patient was admitted in stable condition to observation telemetry. - Lab Data Result diagrams: 06/06/21 18:23 06/06/21 18:23 Lab Results 06/06/21 06/06/21 06/06/21 Range/Units 18:23 18:23 18:23 WBC 8.9 (3.8-10.6) k/uL RBC 4.98 (4.30-5.90) m/uL Hgb 15.7 (13.0-17.5) gm/dL Hct 46.3 (39.0-53.0) % MCV 93.0 (80.0-100.0) fL MCH 31.6 (25.0-35.0) pg MCHC 34.0 (31.0-37.0) g/dL RDW 12.9 (11.5-15.5) % Plt Count 190 (150-450) k/uL MPV 8.5 Neutrophils % 59 % Lymphocytes % 30 % Monocytes % 6 % Eosinophils % 2 % Basophils % 0 % Neutrophils # 5.3 (1.3-7.7) k/uL Lymphocytes # 2.7 (1.0-4.8) k/uL Monocytes # 0.5 (0-1.0) k/uL Eosinophils # 0.1 (0-0.7) k/uL Basophils # 0.0 (0-0.2) k/uL PT 11.7 (9.0-12.0) sec INR 1.1 (<1.2) APTT 28.4 (22.0-30.0) sec Sodium 138 (137-145) mmol/L Potassium 3.8 (3.5-5.1) mmol/L Chloride 104 (98-107) mmol/L Carbon Dioxide 25 (22-30) mmol/L Anion Gap 9 mmol/L BUN 19 (9-20) mg/dL Creatinine 0.76 (0.66-1.25) mg/dL Est GFR (CKD-EPI)AfAm >90 (>60 ml/min/1.73 sqM) Est GFR (CKD-EPI)NonAf >90 (>60 ml/min/1.73 sqM) Glucose 95 (74-99) mg/dL Calcium 9.2 (8.4-10.2) mg/dL Magnesium 2.0 (1.6-2.3) mg/dL Total Bilirubin 1.3 (0.2-1.3) mg/dL AST 26 (17-59) U/L ALT 20 (4-49) U/L Alkaline Phosphatase 102 (38-126) U/L Troponin I (0.000-0.034) ng/mL Total Protein 7.4 (6.3-8.2) g/dL Albumin 4.2 (3.5-5.0) g/dL 06/06/21 Range/Units 18:23 WBC (3.8-10.6) k/uL RBC (4.30-5.90) m/uL Hgb (13.0-17.5) gm/dL Hct (39.0-53.0) % MCV (80.0-100.0) fL MCH (25.0-35.0) pg MCHC (31.0-37.0) g/dL RDW (11.5-15.5) % Plt Count (150-450) k/uL MPV Neutrophils % % Lymphocytes % % Monocytes % % Eosinophils % % Basophils % % Neutrophils # (1.3-7.7) k/uL Lymphocytes # (1.0-4.8) k/uL Monocytes # (0-1.0) k/uL Eosinophils # (0-0.7) k/uL Basophils # (0-0.2) k/uL PT (9.0-12.0) sec INR (<1.2) APTT (22.0-30.0) sec Sodium (137-145) mmol/L Potassium (3.5-5.1) mmol/L Chloride (98-107) mmol/L Carbon Dioxide (22-30) mmol/L Anion Gap mmol/L BUN (9-20) mg/dL Creatinine (0.66-1.25) mg/dL Est GFR (CKD-EPI)AfAm (>60 ml/min/1.73 sqM) Est GFR (CKD-EPI)NonAf (>60 ml/min/1.73 sqM) Glucose (74-99) mg/dL Calcium (8.4-10.2) mg/dL Magnesium (1.6-2.3) mg/dL Total Bilirubin (0.2-1.3) mg/dL AST (17-59) U/L ALT (4-49) U/L Alkaline Phosphatase (38-126) U/L Troponin I <0.012 (0.000-0.034) ng/mL Total Protein (6.3-8.2) g/dL Albumin (3.5-5.0) g/dL - EKG Data -: EKG Interpreted by Me EKG Comments: 12-lead Electrocardiogram Interpretation Note EKG was reviewed and interpreted by myself. 12-lead ECG performed at 1721 is interpreted by me as revealing atrial fibrillation rate controlled at a rate of 109 beats per minute. [place] is normal. MS interval is unobtainable, QRS duration is 104 ms, QTc is 394 no seconds.. There were no ST or T wave abnormalities to suggest myocardial ischemia or injury. R wave progression acro ss the precordium was satisfactory. By my interpretation this EKG is non- diagnostic for acute ischemia. Disposition Clinical Impression: Atrial fibrillation, Chest pain Disposition: ADMITTED IP TO THIS HOSP Condition: Stable Referrals: [facility],Clinic [Primary Care Provider] - 1-2 days
[2021-06-06 19:13] LABS: INR 1.1 (<1.2); Partial Thromboplastin Time 28.4 sec (22.0-30.0); Prothrombin Time 11.7 sec (9.0-12.0)
[2021-06-06] MEDS ORDERED: IBUPROFEN 600 MG TAB PO PRN (20:32)
[2021-06-06] MEDS ORDERED: traZODone HCL 50 MG TAB PO PRN (20:32)
[2021-06-06] MEDS ORDERED: hydrOXYzine HCL 10 MG TAB PO PRN (20:32)
[2021-06-06] MEDS ORDERED: LORazepam 1 MG TAB PO STA (20:33)
[2021-06-06] MEDS: FLECAINIDE 50 MG TAB PO SCH (21:33)
[2021-06-06] MEDS: DABIGATRAN 150 MG CAP PO SCH (21:34)
[2021-06-06] MEDS: ATORVASTATIN 40 MG TAB PO SCH (21:34)
[2021-06-07] MEDS: DABIGATRAN 150 MG CAP PO SCH ×2 (08:35→21:38)
[2021-06-07] MEDS: amLODIPine 2.5 MG TAB PO SCH (08:35)
[2021-06-07] MEDS: FLECAINIDE 50 MG TAB PO SCH ×2 (08:36→21:39)
[2021-06-07] MEDS: SERTRALINE 50 MG TAB PO SCH (08:36)
[2021-06-07] MEDS: FUROSEMIDE 40 MG TAB PO SCH (08:36)
[2021-06-07] MEDS: METOPROLOL TARTRATE 25 MG TAB PO SCH ×2 (09:04→21:38)
--- NOTE | 2021-06-07 11:16 | P.HPIM ---
History of Present Illness Patient is a 61-year-old male with history of proximal atrial ablation came in with compensative palpitations and chest pressure like sensation patient is in A. fib heart rate going anywhere between 90 to 130. Patient was started on metoprolol 25 twice a day with cardiology nurse practitioner. Patient the was nothing by mouth he was not happy because of that reason patient was acting and also the interview wanted to eat wanted to leave AGAINST MEDICAL ADVICE. Patient will be evaluated by production worker today. Patient denied any nausea vomiting syncope. REVIEW OF SYSTEMS: CONSTITUTIONAL: No fever, no malaise, no fatigue. HEENT: No recent visual problems or hearing problems. Denied any sore throat. CARDIOVASCULAR: Noorthopnea, PND, no syncope. PULMONARY: No shortness of breath, no cough, no hemoptysis. GASTROINTESTINAL: No diarrhea, no nausea, no vomiting, no abdominal pain. NEUROLOGICAL: No headaches, no weakness, no numbness. HEMATOLOGICAL: Denies any bleeding or petechiae. GENITOURINARY: Denies any burning micturition, frequency, or urgency. MUSCULOSKELETAL/RHEUMATOLOGICAL: Denies any joint pain, swelling, or any muscle pain. ENDOCRINE: Denies any polyuria or polydipsia. The rest of the 14-point review of systems is negative. PHYSICAL EXAMINATION: GENERAL: The patient is alert and oriented x3, not in any acute distress. Well developed, well nourished. HEENT: Pupils are round and equally reacting to light. EOMI. No scleral icterus. No conjunctival pallor. Normocephalic, atraumatic. No pharyngeal erythema. No thyromegaly. CARDIOVASCULAR: S1 and S2 present. No murmurs, rubs, or gallops. Irregularly irregular rhythm PULMONARY: Chest is clear to auscultation, no wheezing or crackles. ABDOMEN: Soft, nontender, nondistended, normoactive bowel sounds. No palpable organomegaly. MUSCULOSKELETAL: No joint swelling or deformity. EXTREMITIES: No cyanosis, clubbing, or pedal edema. NEUROLOGICAL: Gross neurological examination did not reveal any focal deficits. SKIN: No rashes. Assessment and plan -Atrial fibrillation with rapid ventricular rate. Patient has proximal A. fib. Patient was started on metoprolol 25 twice a day will be a valid by cardiology. Also on flecainide. Patient is on Pradexa for anticoagulation -Hypertension and patient blood pressure is within normal limits and she is being started on the beta travis probably amlodipine can be discontinued -Hyperlipidemia -Depression -Sleep apnea -COPD DVT prophylaxis:on Pradexa She was arrogant all throughout the interview as he is hungry and doesn't want to see me. Past Medical History Past Medical History: Atrial Fibrillation, COPD, Hyperlipidemia, Hypertension, S leep Apnea/CPAP/BIPAP Additional Past Medical History / Comment(s): Doesn't use CPAP, past hx kidney stone. RECENT TRAUMA TO LEFT RING FINGER- STARTED ON ANTIBIOTIC. History of Any Multi-Drug Resistant Organisms: None Reported Past Surgical History: Cardiac Ablation, Joint Replacement, Orthopedic Surgery Additional Past Surgical History / Comment(s): Cardioversion, cardiac ablation X2, bilateral knee replacements, ORIF right ankle. Pain procedures. Past Anesthesia/Blood Transfusion Reactions: No Reported Reaction Past Psychological History: Depression, PTSD Additional Psychological History / Comment(s): CLAUSTROPHOBIC. Smoking Status: Former smoker Past Alcohol Use History: None Reported Additional Past Alcohol Use History / Comment(s): Quit smoking in 2004, smoked 25 yrs, <ppd. Past Drug Use History: None Reported Additional Drug Use History / Comment(s): OCCASIONAL USE. - Past Family History Mother Family Medical History: Cancer, Thyroid Disorder Additional Family Medical History / Comment(s): Thyroid cancer. Father Family Medical History: AFIB, Congestive Heart Failure (CHF), CVA/TIA, Hypertension Medications and Allergies Home Medications Medication Instructions Recorded Confirmed Type Dabigatran [Pradaxa] 150 mg PO BID@0700,2200 02/28/20 06/06/21 History Furosemide [Lasix] 40 mg PO DAILY 03/29/20 06/06/21 History Atorvastatin [Lipitor] 40 mg PO HS 06/06/21 06/06/21 History Flecainide Acetate 100 mg PO BID@1000,2200 06/06/21 06/06/21 History Ibuprofen [Motrin] 600 mg PO Q4H PRN 06/06/21 06/06/21 History Sertraline HCl [Zoloft] 50 mg PO DAILY 06/06/21 06/06/21 History hydrOXYzine HCL [Atarax] 10 mg PO BID PRN 06/06/21 06/07/21 History traZODone HCL [Desyrel] 50 mg PO HS PRN 06/06/21 06/06/21 History Metoprolol Tartrate [Lopressor] 25 mg PO BID #60 tab 06/07/21 Rx Allergies Allergy/AdvReac Type Severity Reaction Status Date / Time amiodarone Allergy Rash/Hives Verified 06/06/21 19:10 pneumococcal vaccine Allergy SWELLING Verified 06/06/21 19:10 AT SITE aspirin AdvReac heartburn Verified 06/06/21 19:10 Physical Exam Vitals: Vital Signs Temp Pulse Pulse Resp BP BP Pulse Ox 06/07/21 08:01 97 06/07/21 07:00 97.8 F 99 16 129/97 97 06/07/21 01:58 97.6 F 76 17 124/88 96 06/07/21 01:41 82 16 06/07/21 00:03 97.4 F L 82 16 121/91 97 06/06/21 23:00 81 18 132/78 95 06/06/21 22:34 98.7 F 108 H 18 124/95 98 06/06/21 21:00 85 18 125/87 94 L 06/06/21 19:29 84 18 120/91 94 L 06/06/21 18:23 80 18 122/93 95 06/06/21 17:14 97.5 F L 105 H 18 132/88 98 Intake and Output 06/06/21 06/07/21 06/07/21 22:59 06:59 14:59 Other: Voiding Method Toilet # Voids 1 Weight 108.862 kg 108.862 kg Results CBC & Chem 7: 06/06/21 18:23 06/06/21 18:23 Thrombosis Risk Factor Assmnt - Choose All That Apply Each Factor Represents 1 point: Abnormal pulmonary function (COPD), Obesity (BMI >25) Each Risk Factor Represents 2 Points: Age 61-74 years Thrombosis Risk Factor Assessment Total Risk Factor Score: 4 Thrombosis Risk Factor Assessment Level: Moderate Risk
[2021-06-07 15:48] VITALS: PULSE 83
[2021-06-07 16:37] LABS: Amorphous Sediment,Urine Rare /hpf; Appearance,Urine Cloudy (Clear); Bacteria,Urine Rare /hpf; Bilirubin,Urine Negative (Negative); Blood,Urine Negative (Negative); Color,Urine Yellow; Glucose,Urine (UA) Negative (Negative); Ketones,Urine Negative (Negative); Leukocyte Esterase,Urine Negative (Negative); Mucus,Urine Rare /hpf; Nitrite,Urine Negative (Negative); Protein,Urine Negative (Negative); Specific Gravity,Urine 1.021 (1.001-1.035); Squamous Epithelial Cell,Urine 2 /hpf (0-4); WBC,Urine 1 /hpf (0-5)
[2021-06-07] MEDS: ATORVASTATIN 40 MG TAB PO SCH (21:38)
[2021-06-07] MEDS ORDERED: LORazepam 0.5 MG TAB PO STA (23:32)
[2021-06-08 08:16] VITALS: BP 131/89; RESP 15; TEMP 97.6
[2021-06-08] MEDS: DABIGATRAN 150 MG CAP PO SCH (08:47)
[2021-06-08] MEDS: METOPROLOL TARTRATE 25 MG TAB PO SCH (08:47)
[2021-06-08] MEDS: amLODIPine 2.5 MG TAB PO SCH (08:47)
[2021-06-08] MEDS: SERTRALINE 50 MG TAB PO SCH (08:47)
[2021-06-08] MEDS: FUROSEMIDE 40 MG TAB PO SCH (08:47)
[2021-06-08] MEDS: FLECAINIDE 50 MG TAB PO SCH (08:48)
--- NOTE | 2021-06-08 08:59 | P.PN ---
Subjective Patient was examined at bedside not complaining of any new chest pain, shortness or palpitations. Patient states he is compliant with his medications at home and denies any recreational drugs besides marijuana. Objective - Vital Signs Vital signs: Vital Signs Temp 97.6 F 06/08/21 07:00 Pulse 83 06/08/21 07:00 Resp 15 06/08/21 07:00 BP 131/89 06/08/21 07:00 Pulse Ox 97 06/08/21 07:00 Intake & Output 06/07/21 06/08/21 06/08/21 18:59 06:59 18:59 Intake Total 342 Balance 342 Intake: Oral 342 Other: Voiding Method Toilet # Voids 1 2 1 # Bowel Movements 1 - Exam General: Patient is alert oriented 3 Cardio: Normal S1/S2, normal rate, irregular Respiratory: No wheezing or rhonchi appreciated Abdomen soft, nontender Extremities no pitting edema Neuro no focal deficit noted - Labs CBC & Chem 7: 06/06/21 18:23 06/06/21 18:23 Labs: Abnormal Lab Results - Last 24 Hours (Table) 06/07/21 Range/Units 16:30 Amorphous Sediment Rare H (None) /hpf Urine Bacteria Rare H (None) /hpf Urine Mucus Rare H (None) /hpf Assessment and Plan Assessment: Assessment: #1 paroxysmal atrial fibrillation status post ablation in the past currently in A. fib RVR #2 essential hypertension #3 hyperlipidemia #4 sleep apnea #5 COPD not in acute exacerbation #6 depression/anxiety Plan: -Admitted to medicine for close monitoring -Aspiration/fall precaution -Continue with metoprolol 25 mg twice a day for rate control -Maintain heart rate is 110 bpm -Continue with anticoagulation -Cardiology consult depending on recommendations. -DVT prophylaxis: pradaxa
--- NOTE | 2021-06-08 12:24 | P.PN ---
Subjective HISTORY OF PRESENTING ILLNESS This is a pleasant 61-year-old male past medical history significant for wrecked paroxysmal atrial fibrillation status post ablation and cardioversion, hypertension, dyslipidemia, daily marijuana use and former nicotine dependence. He follows in the office with her Sean. We have been asked to see in consultation for chest pain. He presented to the hospital with a 2 day history of palpitations and shortness of breath. According to the patient he knows he's been in A. fib for the past 2 days. He underwent a cardioversion March 2021 that was successful after 3 shocks. He has been maintained on per PORSHA on flecainide. He underwent cardiac catheterization previously revealing normal coronary arteries with no obstructive disease. EKG reveals atrial fibrillation heart rate of 109. Telemetry tracings reveal he continues to be in persistent atrial fibrillation with heart rate going as high as 140. He is not currently on any beta blockers. Most recent echocardiogram obtained in 2018 revealed preserved LV systolic function with ejection fraction 55-60%. Currently maintained on pradaxa 150 mg twice a day, flecainide 100 mg twice a day, Lasix 40 mg daily, amlodipine 2.5 mg daily and atorvastatin 40 mg at bedtime. 06/08/2021 Pt is still in afib with rates in the 70-80s. He was up walking this morning and had no shortness of breath or dizziness. Blood pressure 131/89 heart rate 83 afebrile and maintaining oxygen saturation on room air. PHYSICAL EXAMINATION Blood pressure 129/97 heart rate 99 afebrile and maintaining oxygen saturation on the room air. CONSTITUTIONAL: No apparent distress. HEENT: Head is normocephalic. Pupils are equal, round. Sclerae anicteric. Mucous membranes of the mouth are moist. No JVD. No carotid bruit. CHEST EXAMINATION: Lungs are clear to auscultation. No chest wall tenderness is noted on palpation or with deep breathing. HEART EXAMINATION: Irregular rate and rhythm. S1, S2 heard. No murmurs, gallops or rub. ABDOMEN: Soft, nontender. EXTREMITIES: 2+ peripheral pulses, no lower extremity edema and no calf tenderness. NEUROLOGIC EXAMINATION: Patient is awake, alert and oriented x3. ASSESSMENT Paroxysmal atrial fibrillation with rapid ventricular response Hypertension Dyslipidemia PLAN Stable for discharge on current regimen. Follow up with Dr. Estrada in the office. Nurse Practitioner note has been reviewed, I agree with a documented findings and plan of care. Patient was seen and examined. Objective - Vital Signs Vital signs: Vital Signs Temp 97.6 F 06/08/21 07:00 Pulse 83 06/08/21 07:00 Resp 15 06/08/21 07:00 BP 131/89 06/08/21 07:00 Pulse Ox 97 06/08/21 07:00 Intake & Output 06/07/21 06/08/21 06/08/21 18:59 06:59 18:59 Intake Total 342 100 Balance 342 100 Intake: Oral 342 100 Other: Voiding Method Toilet # Voids 1 2 1 # Bowel Movements 1 - Labs CBC & Chem 7: 06/06/21 18:23 06/06/21 18:23 Labs: Abnormal Lab Results - Last 24 Hours (Table) 06/07/21 Range/Units 16:30 Amorphous Sediment Rare H (None) /hpf Urine Bacteria Rare H (None) /hpf Urine Mucus Rare H (None) /hpf
--- NOTE | 2021-06-08 12:40 | P.DS ---
Providers Date of admission: 06/06/21 19:08 Attending physician: Jonathan Hoover MD Consults: 06/06/21 19:09 Consult Physician Routine Consulting Provider: [facility] Consult Reason/Comments: paroxysmal afib seeking cardioversion. chest pain Do you want consulting provider notified?: Yes Primary care physician: [place] [facility] Course: patientpatient is a 61-year-old man with past medical history significant for age fibrillation status post ablation, hyperlipidemia, essential hypertension and daily user of marijuana the presents to the hospital secondary to palpitations. The patient was found to be in atrial fibrillation with RVR with heart rate about 110 bpm He states that he has been compliant with his medications however does usually get stressed with sometimes leads to these episodes. Patient is currently on anticoagulation pradaxa 150 mg twice a day, and flecainide. he was evaluated by cardiology team. Currently his heart rate is less than 110 bpmblood pressure is currently 131/89 with a heart rate of 83. Examination he denied any active chest pain, shortness of breath or palpitations. He has been evaluated by cardiology there is recommended to continue with the same medication including metoprolol, calcium channel travis. He is asked to follow-up with cardiology and PCP within 1 week of discharge. Patient Condition at Discharge: Stable Plan - Discharge Summary New Discharge Prescriptions: New Metoprolol Tartrate 25 mg PO BID 30 Days tab Metoprolol Tartrate [Lopressor] 25 mg PO BID #60 tab amLODIPine [Norvasc] 2.5 mg PO DAILY #30 tab Continue Dabigatran [Pradaxa] 150 mg PO BID@0700,2200 Furosemide [Lasix] 40 mg PO DAILY Ibuprofen [Motrin] 600 mg PO Q4H PRN PRN Reason: Pain Atorvastatin [Lipitor] 40 mg PO HS traZODone HCL [Desyrel] 50 mg PO HS PRN PRN Reason: Insomnia Sertraline HCl [Zoloft] 50 mg PO DAILY Flecainide Acetate 100 mg PO BID@1000,2200 hydrOXYzine HCL [Atarax] 10 mg PO BID PRN PRN Reason: Anxiety Discontinued amLODIPine [Norvasc] 2.5 mg PO DAILY Discharge Medication List Dabigatran [Pradaxa] 150 mg PO BID@0700,2200 02/28/20 [History] Furosemide [Lasix] 40 mg PO DAILY 03/29/20 [History] Atorvastatin [Lipitor] 40 mg PO HS 06/06/21 [History] Flecainide Acetate 100 mg PO BID@1000,2200 06/06/21 [History] Ibuprofen [Motrin] 600 mg PO Q4H PRN 06/06/21 [History] Sertraline HCl [Zoloft] 50 mg PO DAILY 06/06/21 [History] hydrOXYzine HCL [Atarax] 10 mg PO BID PRN 06/06/21 [History] traZODone HCL [Desyrel] 50 mg PO HS PRN 06/06/21 [History] Metoprolol Tartrate [Lopressor] 25 mg PO BID #60 tab 06/07/21 [Rx] Metoprolol Tartrate 25 mg PO BID 30 Days tab 06/08/21 [Rx] amLODIPine [Norvasc] 2.5 mg PO DAILY #30 tab 06/08/21 [Rx] Follow up Appointment(s)/Referral(s): [facility],Clinic [Primary Care Provider] - 1-2 days Prasanth Estrada MD [STAFF PHYSICIAN] - 1 Week Patient Instructions/Handouts: Atrial Flutter (DC)
== END 2021-06-08 13:01 | disposition home or self-care (01) ==
LOC: EC 17:10 → 6NMEDSUR 19:08
PROVIDERS: ADMIT Internal Medicine; ATTEND Internal Medicine
DX: I48.0 Paroxysmal atrial fibrillation (principal); I48.92 Unspecified atrial flutter; I48.19 Other persistent atrial fibrillation; I10 Essential (primary) hypertension; J44.9 Chronic obstructive pulmonary disease, unspecified; E78.5 Hyperlipidemia, unspecified; G47.30 Sleep apnea, unspecified; F32.A Depression, unspecified; F43.10 Post-traumatic stress disorder, unspecified; E66.9 Obesity, unspecified; Z68.29 Body mass index [BMI] 29.0-29.9, adult; Z87.442 Personal history of urinary calculi; Z87.891 Personal history of nicotine dependence; Z79.01 Long term (current) use of anticoagulants; Z79.899 Other long term (current) drug therapy; Z88.6 Allergy status to analgesic agent; Z88.7 Allergy status to serum and vaccine; Z88.8 Allergy status to other drugs, medicaments and biological substances; Z96.653 Presence of artificial knee joint, bilateral; Z80.8 Family history of malignant neoplasm of other organs or systems; Z82.49 Family history of ischemic heart disease and other diseases of the circulatory system; Z82.3 Family history of stroke
CPT/HCPCS: 99285; 36415; 93005; 80053; 83735; 84484 ×2; 85025; 85610; 85730; 81001; 71046; G0378 ×3

== ENCOUNTER → 2021-08-06 | Outpatient (CLI) | payer OTHER ==
[2021-08-06 15:18] LABS: HCT 46.9 % (39.6-50.0); HGB 15.2 g/dL (13.0-17.0); MCHC 32.4 g/dL (32.0-37.0); MCV 92.5 fL (80.0-97.0); Mean Platelet Volume 11.5 fL (9.5-12.2); NRBC Per 100 WBC 0 /100 WBCS (0.0-0.0); Platelet Count 172 X 10*3/uL (140-440); RBC 5.07 X 10*6/uL (4.40-5.60); RDW 12.9 % (11.5-14.5); WBC 7.14 X 10*3/uL (4.50-10.00)
[2021-08-06 15:24] LABS: African American GFR (CKD) 106.5 (60.0-200.0); Anion Gap 9.6 mmol/L (10.00-18.00); Blood Urea Nitrogen 13.7 mg/dL (9.0-27.0); Carbon Dioxide 24.4 mmol/L (20.0-27.5); Non-African American GFR(CKD) 91.9 (60.0-200.0); Potassium 4.2 mmol/L (3.5-5.5)
== END | disposition home or self-care (01) ==
LOC: LABWHC1 07:13
PROVIDERS: ATTEND Internal Medicine Clinical Cardiac Electrophysiology
DX: Z01.812 Encounter for preprocedural laboratory examination (principal); I48.0 Paroxysmal atrial fibrillation
CPT/HCPCS: 80051; 82565; 84520; 85027

== ENCOUNTER 2021-08-11 11:27 | Day surgery (SDC) | payer OTHER ==
[2021-08-07 17:47] VITALS: BMI 29.9
[~2021-08-11 11:27] MED LIST changes: -LACTATED RINGERS 1,000 ML IV SCH; +SODIUM CHLORIDE 0.9% 1,000 ML IV SCH
[2021-08-11] MEDS ORDERED: MIDAZOLAM 2 MG/2 ML VIAL IV STA (12:41)
[2021-08-11] MEDS ORDERED: HEPARIN SODIUM,PORCINE 10,000 UNIT/ML 1 ML VIAL ONE (13:14)
[2021-08-11] MEDS ORDERED: ROCURONIUM 10 MG/ML (5 ML VIAL) IV ONE (13:14)
[2021-08-11] MEDS ORDERED: PHENYLEPHRINE-0.9% NACL SYG 1,000 MCG/10 ML SYRINGE ONE (13:14)
[2021-08-11] MEDS ORDERED: HYDROmorphone (PF) 1 MG/ML ONE (13:14)
[2021-08-11] MEDS ORDERED: SUCCINYLCHOLINE CHLORIDE 200 MG/10 ML VIAL IV ONE (13:14)
[2021-08-11] MEDS ORDERED: MIDAZOLAM 2 MG/2 ML VIAL ONE (13:14)
[2021-08-11] MEDS ORDERED: ONDANSETRON 4 MG/2 ML VIAL ONE (13:14)
[2021-08-11] MEDS ORDERED: NEOSTIGMINE 1 MG/ML 10 ML VIAL ONE (13:14)
[2021-08-11] MEDS ORDERED: GLYCOPYRROLATE 0.2 MG/ML 2 ML VIAL ONE (13:14)
[2021-08-11] MEDS ORDERED: fentaNYL (PF) 50 MCG/ML 2 ML AMP ONE (13:14)
[2021-08-11] MEDS ORDERED: PROPOFOL 10 MG/ML 20 ML VIAL IV ONE (13:14)
[2021-08-11] MEDS ORDERED: DEXAMETHASONE SOD PHOSPHATE 10 MG/ML 1 ML VIAL ONE (13:14)
[2021-08-11] MEDS ORDERED: LIDOCAINE 1% INJ 10MG/ML (30 ML VIAL-PF) SQ ONE (14:30)
[2021-08-11] MEDS ORDERED: HEPARIN SOD,PORK IN 0.45% NACL 25,000 UNIT in 0.45% NACL 1 250ML.BAG IV ONE (14:30)
[2021-08-11] MEDS ORDERED: IOPAMIDOL-370 50ML BTL INJ ONE (16:15)
[2021-08-11] MEDS ORDERED: HEPARIN SODIUM (1,000 UNIT/ML) 1,000 UNIT in SODIUM CHLORIDE 0.9% 1,000 ML IRRIGATION ONE (16:15)
[2021-08-11] MEDS ORDERED: traZODone HCL 50 MG TAB PO PRN (17:50)
[2021-08-11] MEDS ORDERED: ACETAMINOPHEN TAB 325 MG TAB PO PRN (17:52)
[2021-08-11] MEDS ORDERED: ACETAMINOPHEN IV (For NPO) 1,000 MG in EMPTY BAG 1 BAG IVPB ONE (17:52)
--- NOTE | 2021-08-11 18:00 | P.EPPROC ---
- EP Procedure Note Electrophysiology Procedure Note: PROCEDURE A. fib ablation DIAGNOSIS Persistent Atrial fibrillation, symptomatic, refractory to therapy On pradaxa, interaction with Multaq RESULT No left atrial appendage mass seen on intracardiac echo, normal LV function Successful A. fib ablation/pulmonary vein isolation of all veins using cryo- ablation Complete entrance block in all 4 veins confirmed Linear ablation of the left atrial roof with complete block RF ablation of the left atrial septum RF ablation in the groove of the left atrium, between left atrial appendage and left inferior pulmonary vein No evidence for phrenic nerve injury Fine atrial fibrillation in the coronary sinus poles despite extensive ablation in the left atrium Esophageal deflection YES, left-sided esophagus Electrical cardioversion with a synchronized shock across the chest YES PROCEDURE DETAILS Patient was brought to the EP lab in a fasting state after obtaining written informed consent. Procedure performed under general anesthesia Esophagus was intubated. Esophageal temperature monitoring with circa catheter. Esophageal deflection with an endoscope to avoid hypothermia of the esophagus. After initial muscle relaxant use, muscle relaxants were not given thereafter in order to assess phrenic nerve during procedure. Patient prepped and draped as per protocol Cryo ablation-set up with standard preparation of the cryoablation tools done. Femoral Venous access obtained on the right and left groins and sheaths placed Diagnostic catheters for the high right atrium, phrenic nerve stimulation and pacing, His bundle, coronary sinus placed Intracardiac echo catheter placed. Long sheath placed in the right atrium Left and right transseptal catheterization performed under intracardiac echo guidance. Intravenous heparin with aCT above 300 Later, catheter positioning and balloon positioning in the left atrium and pulmonary veins, under intracardiac echo guidance Diagnostic EP study with coronary sinus pacing and recording QT interval 395, QRS 108 ms Transseptal catheterization performed RA pressure 15//13 LA pressure 22/9/15 Transseptal catheterization performed with standard sheath. The cryoablation sheath was then placed with an over the wire exchange without any acute complications. The cryoablation balloon was placed in the office of each pulmonary vein and all 4 pulmonary veins were isolated. IV dye was injected to confirm occlusion. Goal: achieve complete occlusion of the pulmonary vein, achieve -30 degrees C at 30 seconds and achieve -40 degrees C at 60 seconds and a time to effect of less than 60 seconds. If not, the balloon was repositioned to obtain this result After completion of Cryoblation with durations from 180-240 seconds, entrance block was confirmed with the Attain circular catheter in a roving fashion around the antrum of the pulmonary veins Phrenic nerve pacing was performed from the SVC, right innominate vein area and diaphragm voltage was monitored. Diaphragmatic contractions were also monitored manually for strength of contraction. At the end of the procedure the Achieve catheter was once again used to check for entrance block Phrenic nerve stimulation was performed to confirm diaphragmatic stimulation the end of the procedure Cine fluoroscopy was performed at the very end of the procedure to confirm movement of both diaphragms with inspiration and expiration Linear ablation of the left atrial roof was performed This is confirmed with voltage mapping. Complete block in the upper posterior LA wall Linear ablation in the septum of the left atrium with quiescent see within that segment Linear ablation in the groove between the left atrial appendage and the left inferior pulmonary vein Fine fibrillatory activity in the Torres sinus poles Electrical cardioversion to sinus rhythm, 400 J At the end of the procedure the patient was extubated Venous sheaths were removed and hemostasis assured with a closure device PROCEDURES PERFORMED Diagnostic EP study CS pacing and recording Left and right transseptal catheterization 3-D mapping of the tachycardia Intracardiac echocardiography Pulmonary vein isolation with transseptal and comprehensive EPS, 41252 Left atrial roof line, +[id number] Linear ablation, left atrium, +[id number], left atrial septum Linear ablation in the left atrium, +56630, left atrial drainage Electrical cardioversion with a synchronized shock across the chest [id number]
[2021-08-11] MEDS ORDERED: LACTATED RINGERS 900 ML IV ONE (18:12)
--- NOTE | 2021-08-11 18:19 | P.PRLE ---
RE: Get Astorga Sr Dear Dr. Marguerite Deutsch underwent extensive A. fib ablation with successful isolation of the pulmonary veins, successful left atrial roof ablation with confirmed block RF ablation in the left atrial septum and in the bridge of the left atrium Despite that he remained in atrial fibrillation and underwent electrical cardioversion His LV function is normal and his LA pressures are in normal range If his atrial fibrillation recurs I would recommend antiarrhythmic drug therapy WITH dofetilide. QT prolonging drugs will have to be withdrawn He is on Pradaxa which interacts with Multaq Thank you for entrusting me with the care of the patient Warm regards Sincerely Shine Mccormack
[2021-08-11] MEDS: DABIGATRAN 150 MG CAP PO SCH (21:19)
[2021-08-12 02:49] VITALS: RESP 18
[2021-08-12 07:42] VITALS: TEMP 97.8
[2021-08-12] MEDS ORDERED: SERTRALINE 100 MG TAB PO SCH (09:00)
[2021-08-12] MEDS ORDERED: amLODIPine 2.5 MG TAB PO SCH (09:00)
[2021-08-12] MEDS ORDERED: FUROSEMIDE 40 MG TAB PO SCH (09:00)
[2021-08-12] MEDS ORDERED: METOPROLOL TARTRATE 25 MG TAB PO SCH (09:00)
[2021-08-12] MEDS ORDERED: ATORVASTATIN 40 MG TAB PO SCH (09:00)
[2021-08-12] MEDS: DABIGATRAN 150 MG CAP PO SCH (09:17)
[2021-08-12 10:40] LABS: African American GFR (CKD) 113.7 (60.0-200.0); Blood Urea Nitrogen 19.1 mg/dL (9.0-27.0); Carbon Dioxide 27.6 mmol/L (20.0-27.5); Chloride 104 mmol/L (96-109); Glucose 129 mg/dL (70-110); Magnesium 2.2 mg/dL (1.5-2.4); Non-African American GFR(CKD) 98.1 (60.0-200.0); Potassium 4.4 mmol/L (3.5-5.5); Sodium 139 mmol/L (135-145)
--- NOTE | 2021-08-12 11:40 | P.DS ---
Providers Attending physician: Shine Mccormack Primary care physician: [place] Hospital Course: The patient is 61-year-old male who follows in the office with Dr. Tatum, who is currently admitted after undergoing extensive A. fib ablation was successful pulmonary vein isolation and successful left atrial roof and septum ablation. Patient was cardioverted at the end of his procedure. Overnight the patient developed tachycardia and 12-lead EKG shows 2:1 atrial tachycardia. The patient spontaneously converted back to sinus mechanism. The patient also had runs of nonsustained ventricular tachycardia. Echocardiogram shows normal LV function with no evidence of pericardial effusion. GENERAL: Well-appearing, well-nourished and in no acute distress. NECK: Supple without JVD or thyromegaly. LUNGS: Breath sounds clear to auscultation bilaterally. Respiration equal and unlabored. No wheezes, rales or rhonchi. HEART: Regular rate and rhythm without murmurs, rubs or gallops. S1 and S2 heard. EXTREMITIES: Normal range of motion, no edema. No clubbing or cyanosis. Peripheral pulses intact and strong. Right groin has small amount of sanguinous drainage. No hematoma. IMPRESSION: Persistent atrial fibrillation, status post pulmonary vein isolation and RFA of atrial roof and septum 2:1 atrial tachycardia, brief episode postoperatively with spontaneous conversion NSVT, outpatient ischemia workup by primary electrical cad technician PLAN: Continue anticoagulation and metoprolol Multaq discontinued, interaction with Pradaxa If patient has breakthrough atrial fibrillation thereafter, dofetilide may be considered The patient has breakthrough episodes of atrial tachycardia thereafter, RFA ablation Follow-up with Dr. Estrada in 1-2 weeks I am dictating on behalf of Dr Shine Mccormack's history/physical and assessment/plan. Plan - Discharge Summary Discharge Rx Participant: No New Discharge Prescriptions: No Action Dabigatran [Pradaxa] 150 mg PO BID@0700,2200 Furosemide [Lasix] 40 mg PO DAILY Ibuprofen [Motrin] 600 mg PO Q4H PRN PRN Reason: Pain Atorvastatin [Lipitor] 40 mg PO DAILY Metoprolol Tartrate 25 mg PO BID 30 Days tab traZODone HCL [Desyrel] 150 mg PO HS PRN PRN Reason: Insomnia Sertraline HCl [Zoloft] 100 mg PO DAILY hydrOXYzine HCL [Atarax] 10 mg PO BID PRN PRN Reason: Anxiety amLODIPine [Norvasc] 2.5 mg PO DAILY #30 tab Discharge Medication List Dabigatran [Pradaxa] 150 mg PO BID@0700,2200 02/28/20 [History] Furosemide [Lasix] 40 mg PO DAILY 03/29/20 [History] Atorvastatin [Lipitor] 40 mg PO DAILY 06/06/21 [History] Ibuprofen [Motrin] 600 mg PO Q4H PRN 06/06/21 [History] Sertraline HCl [Zoloft] 100 mg PO DAILY 06/06/21 [History] hydrOXYzine HCL [Atarax] 10 mg PO BID PRN 06/06/21 [History] traZODone HCL [Desyrel] 150 mg PO HS PRN 06/06/21 [History] Metoprolol Tartrate 25 mg PO BID 30 Days tab 06/08/21 [Rx] amLODIPine [Norvasc] 2.5 mg PO DAILY #30 tab 06/08/21 [Rx] Follow up Appointment(s)/Referral(s): Prasanth Estrada MD [STAFF PHYSICIAN] - 1 Week Shine Mccormack MD [STAFF PHYSICIAN] - As Needed (Followup with primary electrical cad technician, Dr Estrada)
--- NOTE | 2021-08-12 12:59 | CT ---
EXAMINATION TYPE: CT chest wo con DATE OF EXAM: 08/12/2021 COMPARISON: None HISTORY: Air in Mediastinum CT DLP: 243.2 mGycm. Automated Exposure Control for Dose Reduction was Utilized. TECHNIQUE: Limited CT scan of the thorax is performed without IV contrast. FINDINGS: LUNGS: A 3 mm mm right upper lobe pulmonary nodule noted and there is new subsegmental consolidation along the right lung base. Portions of the lungs are not excluded.. Calcified 5.5 mm nodule right upp er lobe also seen. MEDIASTINUM: Lack of IV contrast is noted to limit evaluation for mediastinal and especially hilar ad enopathy. There are no definitive greater than 1 cm hilar or mediastinal lymph nodes. The heart is en larged. Tiny pericardial effusion. OTHER: Hypertrophic and degenerative change of the spine.. IMPRESSION: 1. limited [id number] CT chest demonstrates no diagnostic evidence of pneumomediastinum. Pneumomed iastinum within the [id number]. 2. Cardiomegaly with calcified granuloma low normal right upper lobe and additional 3 mm nodule right upper lobe. 3. Subsegmental consolidation along the right lung base posteriorly may represent atelectasis correla te clinically to exclude early infiltrate. 4. Tiny pericardial effusion. Cardiomegaly noted.
[2021-08-12 15:41] VITALS: BP 106/64; PULSE 57
--- NOTE | 2021-08-12 15:43 | CA ---
Transthoracic Echo Report Name: Get Astorga Age: 61 Gender: M : 1960 Exam Date: 08/12/2021 11:04 Exam Location: [facility] Ht (in): 76 Wt (lb): 247 Ordering Physician: Pratibha Rasmussen Attending/Referring Phys: [id number], [place] Field Observer Rosmery Harden RDCS Procedure CPT: Indications: lv function, V-tach Cardiac Hx: Technical Quality: Fair Contrast 1: Total Dose (mL): Contrast 2: Total Dose (mL): MEASUREMENTS (Male / Female) Normal Values 2D ECHO LV Diastolic Diameter PLAX 5.4 cm 4.2 - 5.9 / 3.9 - 5.3 cm LV Systolic Diameter PLAX 3.7 cm IVS Diastolic Thickness 1.4 cm 0.6 - 1.0 / 0.6 - 0.9 cm LVPW Diastolic Thickness 1.6 cm 0.6 - 1.0 / 0.6 - 0.9 cm LV Relative Wall Thickness 0.6 RV Internal Dim ED PLAX 4.7 cm LA Systolic Diameter LX 0.0 cm 3.0 - 4.0 / 2.7 - 3.8 cm LA Volume 94.1 cm??? 18 - 58 / 22 - 52 cm??? M-MODE Aortic Root Diameter MM 4.2 cm AV Cusp Separation MM 2.3 cm DOPPLER AV Peak Velocity 119.6 cm/s AV Peak Gradient 5.7 mmHg LVOT Peak Velocity 92.2 cm/s LVOT Peak Gradient 3.4 mmHg MV Area PHT 2.5 cm??? Mitral E Point Velocity 79.9 cm/s Mitral A Point Velocity 23.8 cm/s Mitral E to A Ratio 3.4 MV Deceleration Time 304.4 ms TR Peak Velocity 230.2 cm/s TR Peak Gradient 21.2 mmHg Right Ventricular Systolic Press 26.2 mmHg FINDINGS Left Ventricle Normal left ventricular systolic function with no obvious regional wall motion abnormalities. Normal left ventricular diastolic filling pattern. Moderately increased left ventricular wall thickness. Left ventricular ejection fraction is estimated at 55-60 %. Right Ventricle Moderate right ventricular dilatation. Right ventricular systolic pressure within normal limits. Right Atrium Mild right atrial dilatation. Left Atrium Moderate left atrial dilatation. No evidence for an atrial septal defect. Mitral Valve No mitral stenosis. Mild mitral regurgitation. Aortic Valve No aortic valve stenosis or regurgitation. Tricuspid Valve Mild tricuspid regurgitation. Pulmonic Valve Trace pulmonic regurgitation. Pericardium No pericardial effusion. Aorta Aortic root and proximal ascending aorta not well visualized. CONCLUSIONS Patient in sinus rhythm LV function is normal No pericardial effusion Previewed by: Dr. Shine Mccormack MD (Electronically Signed) Final Date: 12 Aug 2021 15:42
== END 2021-08-12 15:55 | disposition home or self-care (01) ==
LOC: CATHEP 11:27 → 6NMEDSUR 17:36 → CATHEP 08-12 15:55
PROVIDERS: ATTEND Internal Medicine Clinical Cardiac Electrophysiology
DX: I48.19 Other persistent atrial fibrillation (principal); I47.1 Supraventricular tachycardia; I47.2 Ventricular tachycardia; I51.7 Cardiomegaly; J98.2 Interstitial emphysema; Z79.01 Long term (current) use of anticoagulants; Z79.899 Other long term (current) drug therapy; Z88.8 Allergy status to other drugs, medicaments and biological substances; G47.33 Obstructive sleep apnea (adult) (pediatric); Z99.81 Dependence on supplemental oxygen; Z20.822 Contact with and (suspected) exposure to COVID-19
CPT/HCPCS: 93662 ×2; 92960 ×2; 93613 ×2; 93656 ×2; 93657 ×2; 93306; 80048; 84443; 83735; 87635; 71250; C1759; C1894 ×2; C1769 ×5; C1760; C1730 ×2; C1731; C1893; C1733; C1766; C1732; J2250; J0330; J1644 ×3; J1100; J2710; J2405; J2001; J3010; J1170; J0131; J2370; J2704; Q9967

== ENCOUNTER → 2021-08-18 | Outpatient (CLI) | payer OTHER ==
[2021-08-18 07:59] VITALS: RESP 18
--- NOTE | 2021-08-18 08:07 | P.PN ---
Subjective Progress Note Date: 08/18/21 Principal diagnosis: A 61 yr old male with at side with a history of severe and chronic low back pain secondary to lumbar degenerative disc diseases and lumbar spondylosis with facet arthropathy presents today for evaluation. Pain level is 8 out of 10 in intensity, localized the lower aspect of the lumbar spine, sharp, shocking, shooting in character to the lower extremities, right side greater than left. Pain is provoked by bending, twisting and hyperextension. Pain is alleviated with medications (ibuprofen), topical Voltaren gel, Lidoderm patches, cannabis use, ice, physical therapy years ago which provoked the pain, chiropractic treatment 1 time which provoked the pain, use of a hot tub, reclining and rest. Interventional pain procedures completed include L RFA L3- 5 Patient is currently on Ibuprofen Patient denies any side effects of the medication(s), denies excessive drowsiness or sleepiness, denies suicidal ideation and reports that the current pain medication is helping to control the pain and improve activities of daily living. Patient denies any motor or sensory deficits. Patient denies any fever or night sweats, denies any change in the bowel movements or urination. Physical Examination: -Constitutional: Cooperative. Not in acute distress . -HEENT: Neck is supple. No lymphadenopathy. No thyromegaly. Normal thyroid size. Eyes: No ptosis , no icterus, no photophobia. ENT: No auditory deficits. Normal oropharynx. No Thrush. - Respiratory: Chest clear to auscultations bilaterally. No wheezing. No rhonchi. - Cardiovascular: Regular rate and rhythm. S1 / S2 , no S3 , no S4. - Gastrointestinal: Abdomen soft no tenderness. Bowel sounds positive in all four quadrants. No organomegaly. - Genitourinary: Deferred. - Neurologic: Cranial nerve II to XII intact. No focal neurological defi cits. - Psychatric: Alert & oriented x 3. Matching mood & appropriate affect. Judgment and insight intact. - Lymphatic: No Lymphadenopathy. - Musculoskeletal: Cervical spine: Muscle bulk/ tone/ strength in the bilateral upper extremities normal. Facet loading test cervical area positive. Lumbar spine: Motor bulk/ tone/ strength lower extremities , thigh and legs : 5/5 Deep tendon reflexes : Normal Knee Jerk. Normal Ankle Jerk . Vertebral body tenderness to palpation over Lumbar Facet Loading Test positive Straight Leg Raise: positive at 30 degrees right side/ left side Gaenslen's Test positive Sacral spine : Severe tenderness over the Sacroiliac joint: right side / left side Range of motion: Flexion of the lumbar spine <60 degrees Range of motion: Extension of the lumbar spine <20 degrees Gaenslen's Test positive Miracle test: positive right side / left side Assessment and plan: Chronic low back pain secondary to lumbar degenerative disc disease , lumbar spondylosis with facet arthropathy without myelopathy Recommendation of BL RFA L4-L5, L5-S1. Risks, benefits of procedure discussed and pt verbalized understanding. Admits to Plavix use from Dr Tatum. Denies medical history of diabetes. Protocol for discontinuation/ continuation of medications jesse procedure discussed. Medical clearance needed. All patient questions answered MAPS reviewed and it was appropriate. I have spent 31 minutes on patient care today. Dr Dudley was available by phone for the evaluation of this patient. The time was used to review the medical records including relevant urine studies and Prescription history (MAPs), review of the available imaging, evaluation and examination of the patient, coordination of care with the medical staff and if applicable referring physicians, as well as creation of the medical record Objective - Vital Signs Vital signs: Vital Signs Temp Pulse 70 08/18/21 07:52 Resp 18 08/18/21 07:52 BP 141/82 08/18/21 07:52 Pulse Ox 96 08/18/21 07:52 Intake & Output 08/17/21 08/18/21 08/18/21 18:59 06:59 18:59 Weight 103.873 kg PQRS Measure Charge Sheet Mode of Arrival: Ambulatory - Pain Location Lower Back Non-Pharmacological Interventions: Exercise, Home Exercise, Massage, Physical Therapy, Position/Reposition, Sitting, Stretching Pharmacological Interventions: Epidural, Topical Medication PQRS Narrative: Smoking Status Former smoker Blood Pressure 141/82 Pain Intensity [Lower Back] 3 Scale Used Numeric (1 - 10) Hx Alcohol Use (MH) No Home Medications: Ambulatory Orders Dabigatran [Pradaxa] 150 mg PO BID@0700,2200 02/28/20 Furosemide [Lasix] 40 mg PO DAILY 03/29/20 Atorvastatin [Lipitor] 40 mg PO DAILY 06/06/21 Ibuprofen [Motrin] 600 mg PO Q4H PRN 06/06/21 Sertraline HCl [Zoloft] 100 mg PO DAILY 06/06/21 hydrOXYzine HCL [Atarax] 10 mg PO BID PRN 06/06/21 traZODone HCL [Desyrel] 150 mg PO HS PRN 06/06/21 Metoprolol Tartrate 25 mg PO BID 30 Days tab 06/08/21 amLODIPine [Norvasc] 2.5 mg PO DAILY #30 tab 06/08/21
[2021-08-18 08:30] VITALS: BP 155/93; PULSE 52
== END ==
LOC: PNWHC3 07:31
PROVIDERS: ATTEND Specialist
DX: M51.36 Other intervertebral disc degeneration, lumbar region (principal); M47.816 Spondylosis without myelopathy or radiculopathy, lumbar region; G89.29 Other chronic pain; Z88.6 Allergy status to analgesic agent; Z88.7 Allergy status to serum and vaccine; Z88.8 Allergy status to other drugs, medicaments and biological substances; Z87.891 Personal history of nicotine dependence
CPT/HCPCS: 99211

== ENCOUNTER 2021-09-07 08:29 | Emergency (ER) | payer OTHER ==
[2021-09-07 08:33] VITALS: BP 130/89; PULSE 68; RESP 18; TEMP 97.7
[2021-09-07] MEDS ORDERED: ORPHENADRINE 30 MG/ML 2 ML VIAL IM STA (09:02)
[2021-09-07] MEDS ORDERED: HYDROmorphone 1 MG/ML 1 ML SYRINGE IM STA (09:02)
--- NOTE | 2021-09-07 09:19 | ED ---
Back Pain HPI - General Chief Complaint: Back Pain/Injury Stated Complaint: Back Pain Time Seen by Provider: 09/07/21 08:50 Source: patient, RN notes reviewed Mode of arrival: ambulatory Limitations: no limitations - History of Present Illness Initial Comments: This a 61-year-old male presents emergency Department chief complaint low back pain, leg pain. Patient states that he doesn't trench yesterday and states that he is had increasing pain. Patient states that the pain is radiating down both of his legs He denies any bowel, bladder incontinence or retention or saddle anesthesias. He occasionally has paresthesias of his lower extremity is. He is closely followed by pain management in which she gets ablations and regular basis. He states he has an ablation in 18 days. Patient denies any abdominal pain no fevers chills no other complaints. - Related Data Home Medications Medication Instructions Recorded Confirmed Dabigatran [Pradaxa] 150 mg PO BID@0700,2200 02/28/20 08/18/21 Furosemide [Lasix] 40 mg PO DAILY 03/29/20 08/18/21 Atorvastatin [Lipitor] 40 mg PO DAILY 06/06/21 08/18/21 Ibuprofen [Motrin] 600 mg PO Q4H PRN 06/06/21 08/18/21 Sertraline HCl [Zoloft] 100 mg PO DAILY 06/06/21 08/18/21 hydrOXYzine HCL [Atarax] 10 mg PO BID PRN 06/06/21 08/18/21 traZODone HCL [Desyrel] 150 mg PO HS PRN 06/06/21 08/18/21 Previous Rx's Medication Instructions Recorded Metoprolol Tartrate 25 mg PO BID 30 Days tab 06/08/21 amLODIPine [Norvasc] 2.5 mg PO DAILY #30 tab 06/08/21 Cyclobenzaprine [Flexeril] 10 mg PO TID PRN #15 tab 09/07/21 HYDROcodone/APAP 5-325MG [Ash[place] 5] 1 each PO Q6HR PRN #12 tab 09/07/21 predniSONE 50 mg PO DAILY #5 tab 09/07/21 Allergies Allergy/AdvReac Type Severity Reaction Status Date / Time amiodarone Allergy Rash/Hives Verified 09/07/21 08:34 pneumococcal vaccine Allergy SWELLING Verified 09/07/21 08:34 AT SITE aspirin AdvReac heartburn Verified 09/07/21 08:34 Review of Systems ROS Statement: Those systems with pertinent positive or pertinent negative responses have been documented in the HPI. ROS Other: All systems not noted in ROS Statement are negative. Past Medical History Past Medical History: Atrial Fibrillation, Hyperlipidemia, Hypertension, Sleep Apnea/CPAP/BIPAP Additional Past Medical History / Comment(s): Doesn't use CPAP & since weight loss no real problems anymore, past hx kidney stone. chronic back pain, see Dr. Mccormack H & P History of Any Multi-Drug Resistant Organisms: None Reported Past Surgical History: Cardiac Ablation, Joint Replacement, Orthopedic Surgery Additional Past Surgical History / Comment(s): Cardioversion, cardiac ablation X2, bilateral knee replacements, ORIF right ankle. Pain procedures. Past Anesthesia/Blood Transfusion Reactions: No Reported Reaction Past Psychological History: Depression, PTSD Smoking Status: Former smoker Past Alcohol Use History: None Reported Past Drug Use History: None Reported - Past Family History Mother Family Medical History: Cancer, Thyroid Disorder Additional Family Medical History / Comment(s): Thyroid cancer. Father Family Medical History: AFIB, Congestive Heart Failure (CHF), CVA/TIA, Hypertension General Exam Limitations: no limitations General appearance: alert, in no apparent distress Head exam: Present: atraumatic, normocephalic, normal inspection Eye exam: Present: normal appearance, PERRL, EOMI. Absent: scleral icterus, conjunctival injection, periorbital swelling ENT exam: Present: normal exam, mucous membranes moist Neck exam: Present: normal inspection. Absent: tenderness, meningismus, lymphadenopathy Respiratory exam: Present: normal lung sounds bilaterally. Absent: respiratory distress, wheezes, rales, rhonchi, stridor Cardiovascular Exam: Present: regular rate, normal rhythm, normal heart sounds. Absent: systolic murmur, diastolic murmur, rubs, gallop, clicks GI/Abdominal exam: Present: soft, normal bowel sounds. Absent: distended, tenderness, guarding, rebound, rigid Extremities exam: Present: other (Bilateral lower extremity strength equal bilaterally, neurovascular intact, pain in her lumbar region with lower extremity movement equal: Equal warmth) Back exam: Present: full ROM, tenderness, muscle spasm, paraspinal tenderness, vertebral tenderness. Absent: CVA tenderness (R), CVA tenderness (L) Neurological exam: Present: alert, oriented X3, reflexes normal. Absent: motor sensory deficit Skin exam: Present: warm, dry, intact, normal color. Absent: rash Course Vital Signs 09/07/21 08:30 Temperature 97.7 F Pulse Rate 68 Respiratory 18 Rate Blood Pressure 130/89 O2 Sat by Pulse 96 Oximetry Medical Decision Making - Medical Decision Making 61-year-old presents for low back pain. X-ray does not show any significant findings mild degenerative changes T11-T12. Patient's will be discharged with pain control, course steroids and follow-up with his primary care physician and pain management. Return parameters were discussed. Patient has no red flag symptoms. Disposition Clinical Impression: Strain of lumbar region, Lumbar radiculopathy Disposition: HOME SELF-CARE Condition: Stable Instructions (If sedation given, give patient instructions): Acute Low Back Pain (ED) Additional Instructions: Please return to the Emergency Department if symptoms worsen or any other concerns. Prescriptions: Cyclobenzaprine [Flexeril] 10 mg PO TID PRN #15 tab PRN Reason: Muscle Spasm HYDROcodone/APAP 5-325MG [Ashford 5] 1 each PO Q6HR PRN #12 tab PRN Reason: Pain predniSONE 50 mg PO DAILY #5 tab Is patient prescribed a controlled substance at d/c from ED?: Yes When asked, does pt state using other controlled substances?: No If prescribed controlled substance>3 days was MAPS reviewed?: Prescribed <3 Days If opioid is for acute pain is fill amount 7 days or less?: Yes If Rx opioid, was Start Talking consent form obtained?: Yes Referrals: [facility],Clinic [Primary Care Provider] - 1-2 days Time of Disposition: 09:54
--- NOTE | 2021-09-07 09:49 | XR ---
EXAMINATION TYPE: XR lumbar spine 2 or 3V DATE OF EXAM: 09/07/2021 COMPARISON: None HISTORY: Pain TECHNIQUE: Three-view lumbar spine FINDINGS: There are 5 lumbar-type vertebral bodies. The pedicles are intact. Disc heights through the lumbar spine appear preserved. Some degenerative disc changes present at T11-12. IMPRESSION: 1. Degenerative disc changes T11-12. 2. Lumbar spine appears unremarkable
== END 2021-09-07 10:09 | disposition home or self-care (01) ==
LOC: EC 08:29
DX: M54.59 Other low back pain (principal)
CPT/HCPCS: 72100; J2360; J1170

== ENCOUNTER → 2021-09-17 | Outpatient (CLI) | payer OTHER ==
--- NOTE | 2021-09-18 05:46 | MR ---
EXAMINATION TYPE: MR lumbar spine wo con DATE OF EXAM: 09/17/2021 COMPARISON: 01/23/2020 HISTORY: Low back pain that radiates down both legs, bilateral leg numbness. Multiplanar multi echo imaging of the lumbar spine with no contrast. Fairly normal alignment. There is degenerative disc space narrowing throughout the lumbar spine. No c ompression fracture. There is hypertrophic facet arthropathy and mild posterior disc bulging at L3-4 with moderately severe spinal stenosis. The neural foramina are fairly well maintained. No lumbar par aspinal mass. No compression fracture. Sacroiliac joints are intact. IMPRESSION: Moderately severe spinal stenosis at L3-4. Multilevel degenerative disc changes. No compression fract ure.
== END | disposition home or self-care (01) ==
LOC: RADMRIMAIN 21:39
PROVIDERS: ATTEND Specialist
DX: M51.36 Other intervertebral disc degeneration, lumbar region (principal); M48.061 Spinal stenosis, lumbar region without neurogenic claudication
CPT/HCPCS: 72148

== ENCOUNTER 2021-09-26 06:08 | Day surgery (SDC) | payer OTHER ==
[2021-09-26] MEDS ORDERED: LIDOCAINE 1% (10MG/ML) FOR IV START INTRADERMA PRN (06:27)
[2021-09-26] MEDS ORDERED: LACTATED RINGERS 1,000 ML IV SCH (06:27)
[2021-09-26 06:43] VITALS: TEMP 97.6
[2021-09-26] MEDS ORDERED: ROPIVACAINE 5MG/ML 20ML VIAL ONE (07:02)
[2021-09-26] MEDS ORDERED: MIDAZOLAM 2 MG/2 ML VIAL ONE (07:02)
[2021-09-26] MEDS ORDERED: fentaNYL (PF) 50 MCG/ML 2 ML AMP ONE (07:02)
[2021-09-26] MEDS ORDERED: methylPREDNISolone ACETATE 40 MG/ML 1 ML VIAL ONE (07:02)
--- NOTE | 2021-09-26 07:35 | P.PCN ---
Date of Procedure: 09/26/21 Procedure(s) Performed: PREOPERATIVE DIAGNOSIS: 1-Lumbar Spondylosis with Facet Arthropathy without myelopathy. 2- Lumber degenerative disc disease. POSTOPERATIVE DIAGNOSIS: 1- Lumbar Spondylosis with Facet Arthropathy without myelopathy. 2- Lumber degenerative disc disease. PROCEDURES : Bilateral Radiofrequency thermocoagulation, L3 , L4 , and L5 medial branch, with fluoroscopic guidance (fluoroscopy images available in the radiology department) ( to denervate the facet joint at bilateral L4-5 ,and L5-S1 levels ). ANESTHESIA: Monitored anesthesia care as per anesthesia department. EBL: Minimal PROCEDURE INDICATION: The patient with low back pain secondary to lumbar facet arthropathy who had more than 50% relief of her pain with previous diagnostic lumbar medial branch block with bupivacaine. PROCEDURE DESCRIPTION / TECHNIQUE: The patient was seen and identified in the preoperative area. Risks, benefits, complications, including but not limited to risk of infection ,bleeding , allergic reactions to the medications and no complete pain releife , and alternatives were discussed with the patient, the patient agreed to proceed with the procedure and signed the consent. IV was started. Vital signs remained stable throughout the procedure. Patient was taken to the OR and time out was completed. The patient was placed in the prone position on the procedure table. The lumber area was prepped and draped in the usual sterile fashion. . Vital signs were closely monitored during the procedure .IV sedation was used during the procedure to decrease patients anxiety. Using AP and then oblique fluoroscopy, the ``eye of the Audi dog adair esponding to the connection between the superior and transverse articular processes of right L3, L4, and L5 were identified, marked, and localized with 1% lidocaine. Subsequently, a [id number] radiofrequency cannula with a 10- mm active tip was advanced guided by fluoroscopy to each of the``eyes of the Audi dog at right L3, L4, and L5. Each site then underwent sensory testing at 50 Hz and 0 to 1 volt and motor testing at 2.5 Hz and 0 to 3 volt with local stimulation, but no radicular symptoms down the legs. Thereafter each sites underwent radiofrequency thermocoagulation at 80 degrees celsius for 90 seconds after injecting 0.5 ml of PF Ropivacaine 1ml, then after the thermocoagulation done , 1 ml of the block solution containing Depo-Medrol 20 mg and 3 ml of Ropivacaine 0.5% was injected at the right L3 , L4 , and L5 , levels after negative aspiration of CSF and blood and with no paresthesias. Cannulas were retracted while injecting lidocaine 1% until the needle is out. The same procedure was repeated at the level of Left L3, L4, and L5 levels. At the end of the procedure, the skin was cleansed and bandages were applied. COMPLICATIONS: No acute complications. DISPOSITION / PLANS: The patient was placed in a supine position and transferred to the recovery area in a stable condition for observation and was discharged from the recovery room after meeting discharge criteria. Home discharge instructions given to the patient by the staff. The patient was reexamined prior to discharge. The patient will schedule a follow up in the clinic in 2-4 weeks.
[2021-09-26] MEDS ORDERED: IV FLUID CONTINUATION 600 ML IV ONE (07:40)
[2021-09-26 07:57] VITALS: BP 116/70; PULSE 65; RESP 20
--- NOTE | 2021-09-26 08:50 | FL ---
EXAMINATION TYPE: FL guided pain mgmt statistic DATE OF EXAM: 09/26/2021 FLUOROSCOPY Fluoroscopy time of 23 seconds was used during bilateral lumbar facet radiofrequency ablation. 6 viraj ge/s document/s the procedure.
== END 2021-09-26 08:10 | disposition home or self-care (01) ==
LOC: ORPAIN 06:08
PROVIDERS: ATTEND Specialist
DX: M47.816 Spondylosis without myelopathy or radiculopathy, lumbar region (principal); M51.36 Other intervertebral disc degeneration, lumbar region; I25.10 Atherosclerotic heart disease of native coronary artery without angina pectoris; J44.9 Chronic obstructive pulmonary disease, unspecified; Z87.442 Personal history of urinary calculi; F43.10 Post-traumatic stress disorder, unspecified; Z79.02 Long term (current) use of antithrombotics/antiplatelets; Z79.82 Long term (current) use of aspirin; Z79.899 Other long term (current) drug therapy
CPT/HCPCS: 64635; 64636; J2250; J1030; J3010; J2795

== ENCOUNTER → 2021-10-15 | Outpatient (CLI) | payer OTHER ==
[2021-10-15 11:46] VITALS: BP 149/89; PULSE 72; RESP 18; TEMP 98
--- NOTE | 2021-10-15 11:51 | P.PAINPG ---
PQRS Measure Charge Sheet Comment: A 61 yr old male with a history of severe and chronic low back pain secondary to lumbar degenerative disc diseases and lumbar spondylosis with facet arthropathy presents today for evaluation status post BL RFA L3-L5. Pt states he experienced 0% pain relief s/p procedure. Pain level is currently at 8/10 in intensity, localized in the mid- lower aspect of the lumbar spine, constant, sharp/ shooting in character towards the BLEs. Pain is provoked by standing for periods of 5 min or more, bending or twisting. Pain is alleviated with medications (ibuprofen), topicals, injections, ice, heat, use of a cane for ambulation, home stretching regimen, repositioning and rest. Interventional pain procedures completed include BL RFA L3-L5 Patient is currently on Ibuprofen Patient denies any side effects of the medication(s), denies excessive drowsiness or sleepiness, denies suicidal ideation and reports that the current pain medication is helping to control the pain and improve activities of daily living. Patient denies any motor or sensory deficits. Patient denies any fever or night sweats, denies any change in the bowel movements or urination. Physical Examination: -Constitutional: Cooperative. Not in acute distress . - Neurologic: Cranial nerve II to XII intact. No focal neurological deficits. - Psychatric: Alert & oriented x 3. Matching mood & appropriate affect. Judgment and insight intact. - Musculoskeletal: Cervical spine: Muscle bulk/ tone/ strength in the bilateral upper extremities normal Vertebral body tenderness to palpation over Spurling test positive Distraction test positive Facet loading test positive Thoracic spine Muscle bulk / tone/ strength in the bilateral paraspinal muscles normal Vertebral body tender to palpation over Facet loading test positive Lumbar spine: Motor bulk/ tone/ strength lower extremities , thigh and legs : 5/5 Deep tendon reflexes : Normal Knee Jerk. Normal Ankle Jerk . Vertebral body tenderness to palpation over L3, L4 Lumbar Facet Loading Test positive Straight Leg Raise: positive at 30 degrees right side/ left side Gaenslen's Test positive Sacral spine : Severe tenderness over the Sacroiliac joint: right side / left side Range of motion: Flexion of the lumbar spine <60 degrees Range of motion: Extension of the lumbar spine <20 degrees Gaenslen's Test positive Dany's Test positive Miracle test: positive right side / left side Thigh Thrust Test Sacral Thrust Test Assessment and plan: Chronic low back pain secondary to lumbar stenosis , lumbar spondylosis with facet arthropathy without myelopathy As pt did not exhibit optimal pain relief s/p procedure, he is to follow up with his orthopedic surgeon to explore other treatment options. Chronic and current use of high-risk medication (Opioids). The patient was counseled about risk of opioid use, psychological risk associated with opioids and was orally counseled to not overuse , divert or sell medications. Pt is to store medication in a safe location. The patient is counseled against driving while using narcotic medications and also not to use alcohol or any illicit recreational drugs. Patient verbalized understanding that the lack of compliance will result in failure to renew narcotic prescription(s) as well as possible discharge from the clinic Diagnoses, prognosis and treatment options including but not limited to physical therapy, surgical interventions, interventional therapies and medication management including narcotics and adjuvant medication were discussed. All patient questions answered MAPS reviewed and it was appropriate. Narcotic agreement signed today 10/15/21 Prescription for Jermyn 7.5/325mg #60 w 1 refill I have spent less than 30 minutes on patient care today. Dr Dudley was available by phone for the evaluation of this patient. The time was used to review the medical records including relevant urine studies and Prescription history (MAPs), review of the available imaging, evaluation and examination of the patient, coordination of care with the medical staff and if applicable referring physicians, as well as creation of the medical record PQRS Narrative: Smoking Status Former smoker Hx Alcohol Use (MH) No Home Medications: Ambulatory Orders Dabigatran [Pradaxa] 150 mg PO BID@0700,2200 02/28/20 Furosemide [Lasix] 40 mg PO DAILY 03/29/20 Atorvastatin [Lipitor] 40 mg PO DAILY 06/06/21 Ibuprofen [Motrin] 600 mg PO Q4H PRN 06/06/21 Sertraline HCl [Zoloft] 100 mg PO DAILY 06/06/21 traZODone HCL [Desyrel] 150 mg PO HS PRN 06/06/21 amLODIPine [Norvasc] 2.5 mg PO DAILY #30 tab 06/08/21 Cyclobenzaprine [Flexeril] 10 mg PO TID PRN #15 tab 09/07/21 Metoprolol Tartrate 12.5 mg PO BID 09/25/21 HYDROcodone/APAP 7.5-325MG [Jermyn 7.5-325] 1 tab PO Q12H PRN 30 Days #60 tab 10/15/21 HYDROcodone/APAP 7.5-325MG [Jermyn 7.5-325] 1 tab PO Q12HR PRN 30 Days #60 tab 10/15/21 Controlled Substance Measures - Controlled Substance Measures Is patient prescribed a controlled substance at discharge?: Yes When asked, does pt state using other controlled substances?: No If prescribed controlled substance>3 days was MAPS reviewed?: Yes If Rx opioid, was Start Talking consent form obtained?: Yes Was information provided regarding opioid addiction?: Yes
== END ==
LOC: PNWHC3 11:17
PROVIDERS: ATTEND Specialist
DX: M47.816 Spondylosis without myelopathy or radiculopathy, lumbar region (principal); M48.061 Spinal stenosis, lumbar region without neurogenic claudication; G89.29 Other chronic pain; Z87.891 Personal history of nicotine dependence; Z79.891 Long term (current) use of opiate analgesic; Z88.6 Allergy status to analgesic agent; Z88.7 Allergy status to serum and vaccine
CPT/HCPCS: 99211

== ENCOUNTER → 2022-01-07 | Outpatient (CLI) | payer OTHER ==
[2022-01-07 09:42] LABS: ALT 19 U/L (4-49); AST 25 U/L (17-59); African American GFR (CKD) >90 (>60 ml/min/1.73 sqM); Albumin/Globulin Ratio 1.5; Alkaline Phosphatase 125 U/L (38-126); Anion Gap 7 mmol/L; Blood Urea Nitrogen 15 mg/dL (9-20); Calcium 8.7 mg/dL (8.4-10.2); Carbon Dioxide 28 mmol/L (22-30); Chloride 104 mmol/L (98-107); Globulin 2.7 g/dL; Glucose 105 mg/dL (74-99); Non-African American GFR(CKD) >90 (>60 ml/min/1.73 sqM); Sodium 139 mmol/L (137-145); Total Bilirubin 0.7 mg/dL (0.2-1.3); Total Protein 6.7 g/dL (6.3-8.2)
[2022-01-07 14:54] LABS: Glucose 2 Hour 103 mg/dL
== END | disposition home or self-care (01) ==
LOC: LABWHC1 08:37
PROVIDERS: ATTEND Psychiatry & Neurology Neurology
DX: G62.9 Polyneuropathy, unspecified (principal)
CPT/HCPCS: 36415; 80053; 82306; 82607; 82951; 83090

== ENCOUNTER 2022-03-06 08:39 | Emergency (ER) | payer OTHER ==
[2022-03-06 08:53] VITALS: RESP 16; TEMP 98
--- NOTE | 2022-03-06 09:30 | ED ---
Arrhythmia/Palpitations HPI - General Chief Complaint: Arrhythmia/Palpitations Stated Complaint: hypertension Time Seen by Provider: 03/06/22 09:22 Source: patient, RN notes reviewed, old records reviewed Mode of arrival: ambulatory Limitations: no limitations - History of Present Illness Initial Comments: This is a well-appearing 61-year-old male who presents to the emergency room with family member complaining of heart racing for the past 2 days. Patient does have a history of atrial fibrillation and hypertension. He is on Pradaxa and metoprolol. States his chest does feel heavy. Denies any nausea vomiting diarrhea or fevers. No abdominal pain. No shortness of breath. MD Complaint: "heart racing" -: days(s) (2) Context: occurred during rest Arrhythmia History: atrial fibrillation, on anti-coagulants, history of ablation Associated Symptoms: denies other symptoms - Related Data Home Medications Medication Instructions Recorded Confirmed Dabigatran [Pradaxa] 150 mg PO BID@0700,2200 02/28/20 10/15/21 Furosemide [Lasix] 40 mg PO DAILY 03/29/20 10/15/21 Atorvastatin [Lipitor] 40 mg PO DAILY 06/06/21 10/15/21 Ibuprofen [Motrin] 600 mg PO Q4H PRN 06/06/21 10/15/21 Sertraline HCl [Zoloft] 100 mg PO DAILY 06/06/21 10/15/21 traZODone HCL [Desyrel] 150 mg PO HS PRN 06/06/21 10/15/21 Metoprolol Tartrate 12.5 mg PO BID 09/25/21 10/15/21 Previous Rx's Medication Instructions Recorded amLODIPine [Norvasc] 2.5 mg PO DAILY #30 tab 06/08/21 Cyclobenzaprine [Flexeril] 10 mg PO TID PRN #15 tab 09/07/21 HYDROcodone/APAP 7.5-325MG [Ell[place] 1 tab PO Q12H PRN 30 Days #60 tab 10/15/21 7.5-325] HYDROcodone/APAP 7.5-325MG [[place] 1 tab PO Q12HR PRN 30 Days #60 tab 10/15/21 7.5-325] Allergies Allergy/AdvReac Type Severity Reaction Status Date / Time amiodarone Allergy Rash/Hives Verified 03/06/22 08:49 pneumococcal vaccine Allergy SWELLING Verified 03/06/22 08:49 AT SITE aspirin AdvReac heartburn Verified 03/06/22 08:49 Review of Systems ROS Statement: Those systems with pertinent positive or pertinent negative responses have been documented in the HPI. ROS Other: All systems not noted in ROS Statement are negative. Past Medical History Past Medical History: Atrial Fibrillation, Hyperlipidemia, Hypertension, Sleep Apnea/CPAP/BIPAP Additional Past Medical History / Comment(s): Doesn't use CPAP & since weight loss no real problems anymore, past hx kidney stone. chronic back pain, see Dr. Mccormack H & P History of Any Multi-Drug Resistant Organisms: None Reported Past Surgical History: Cardiac Ablation, Joint Replacement, Orthopedic Surgery Additional Past Surgical History / Comment(s): Cardioversion, cardiac ablation X2, bilateral knee replacements, ORIF right ankle. Pain procedures. Past Anesthesia/Blood Transfusion Reactions: No Reported Reaction Past Psychological History: Depression, PTSD Smoking Status: Former smoker - Past Family History Mother Family Medical History: Cancer, Thyroid Disorder Additional Family Medical History / Comment(s): Thyroid cancer. Father Family Medical History: AFIB, Congestive Heart Failure (CHF), CVA/TIA, Hypertension General Exam Limitations: no limitations General appearance: alert, in no apparent distress Head exam: Present: atraumatic Eye exam: Present: normal appearance. Absent: scleral icterus, conjunctival injection, periorbital swelling Neck exam: Absent: tenderness, meningismus Respiratory exam: Present: normal lung sounds bilaterally. Absent: respiratory distress, accessory muscle use Cardiovascular Exam: Present: regular rate, normal rhythm GI/Abdominal exam: Present: soft. Absent: distended, tenderness, rigid Extremities exam: Present: normal capillary refill. Absent: tenderness, pedal edema, calf tenderness Back exam: Absent: rash noted Neurological exam: Present: alert, oriented X3, normal gait Psychiatric exam: Present: normal affect, normal mood Skin exam: Present: warm, dry, normal color. Absent: cyanosis, diaphoretic, petechiae, pallor Course Vital Signs 03/06/22 03/06/22 03/06/22 08:50 09:52 11:21 Temperature 98 F Pulse Rate 95 76 83 Respiratory 16 16 16 Rate Blood Pressure 131/80 100/82 122/92 O2 Sat by Pulse 96 97 96 Oximetry 03/06/22 13:59 Temperature Pulse Rate 77 Respiratory 16 Rate Blood Pressure 123/82 O2 Sat by Pulse 95 Oximetry EKG Findings - Dysrhythmias: Supraventricular dysrhythmia: atrial flutter (Atrial flutter 2:1, Ventricular rate 77, QRS 0.109, QTC 0.422; normal axis) Medical Decision Making - Medical Decision Making Patient presents with sensation of heart racing today. History of atrial fibrillation and was placed on metoprolol with a recent dose decrease. States he also underwent ablation treatment in August of this year. Admits to taking a double dose of metoprolol this morning for tachycardia with relief. Also takes pradaxa. He was observed in the emergency room for several hours with no evidence of atrial fibrillation with RVR. EKG shows atrial flutter 2-1. Troponin 2 negative. CBC and electrolytes are unremarkable. Chest x-ray interpreted by me shows no areas of consolidation. Heart normal size. Radiologist's interpretation hyperinflation versus underlying emphysema. Vital signs are stable. Patient discharged with the family to follow up with primary care doctor and cardiology next week. Return parameters were discussed and patient is agreeable to discharge. Case discussed with Dr Sauer. - Lab Data Result diagrams: 03/06/22 09:48 03/06/22 09:48 Lab Results 03/06/22 03/06/22 03/06/22 Range/Units 09:48 09:48 09:48 WBC 9.5 (3.8-10.6) k/uL RBC 5.45 (4.30-5.90) m/uL Hgb 16.5 (13.0-17.5) gm/dL Hct 48.8 (39.0-53.0) % MCV 89.4 (80.0-100.0) fL MCH 30.2 (25.0-35.0) pg MCHC 33.8 (31.0-37.0) g/dL RDW 12.3 (11.5-15.5) % Plt Count 187 (150-450) k/uL MPV 8.9 Neutrophils % 73 % Lymphocytes % 17 % Monocytes % 6 % Eosinophils % 1 % Basophils % 1 % Neutrophils # 7.0 (1.3-7.7) k/uL Lymphocytes # 1.6 (1.0-4.8) k/uL Monocytes # 0.6 (0-1.0) k/uL Eosinophils # 0.1 (0-0.7) k/uL Basophils # 0.1 (0-0.2) k/uL PT 13.2 H (9.0-12.0) sec INR 1.3 H (<1.2) APTT 43.0 H (22.0-30.0) sec Sodium 141 (137-145) mmol/L Potassium 4.3 (3.5-5.1) mmol/L Chloride 107 (98-107) mmol/L Carbon Dioxide 26 (22-30) mmol/L Anion Gap 8 mmol/L BUN 13 (9-20) mg/dL Creatinine 0.69 (0.66-1.25) mg/dL Est GFR (CKD-EPI)AfAm >90 (>60 ml/min/1.73 sqM) Est GFR (CKD-EPI)NonAf >90 (>60 ml/min/1.73 sqM) Glucose 115 H (74-99) mg/dL Calcium 9.1 (8.4-10.2) mg/dL Magnesium 1.8 (1.6-2.3) mg/dL Total Bilirubin 0.9 (0.2-1.3) mg/dL AST 23 (17-59) U/L ALT 18 (4-49) U/L Alkaline Phosphatase 119 (38-126) U/L Troponin I (0.000-0.034) ng/mL Total Protein 7.3 (6.3-8.2) g/dL Albumin 4.2 (3.5-5.0) g/dL 03/06/22 03/06/22 Range/Units 09:48 13:00 WBC (3.8-10.6) k/uL RBC (4.30-5.90) m/uL Hgb (13.0-17.5) gm/dL Hct (39.0-53.0) % MCV (80.0-100.0) fL MCH (25.0-35.0) pg MCHC (31.0-37.0) g/dL RDW (11.5-15.5) % Plt Count (150-450) k/uL MPV Neutrophils % % Lymphocytes % % Monocytes % % Eosinophils % % Basophils % % Neutrophils # (1.3-7.7) k/uL Lymphocytes # (1.0-4.8) k/uL Monocytes # (0-1.0) k/uL Eosinophils # (0-0.7) k/uL Basophils # (0-0.2) k/uL PT (9.0-12.0) sec INR (<1.2) APTT (22.0-30.0) sec Sodium (137-145) mmol/L Potassium (3.5-5.1) mmol/L Chloride (98-107) mmol/L Carbon Dioxide (22-30) mmol/L Anion Gap mmol/L BUN (9-20) mg/dL Creatinine (0.66-1.25) mg/dL Est GFR (CKD-EPI)AfAm (>60 ml/min/1.73 sqM) Est GFR (CKD-EPI)NonAf (>60 ml/min/1.73 sqM) Glucose (74-99) mg/dL Calcium (8.4-10.2) mg/dL Magnesium (1.6-2.3) mg/dL Total Bilirubin (0.2-1.3) mg/dL AST (17-59) U/L ALT (4-49) U/L Alkaline Phosphatase (38-126) U/L Troponin I <0.012 <0.012 (0.000-0.034) ng/mL Total Protein (6.3-8.2) g/dL Albumin (3.5-5.0) g/dL Disposition Clinical Impression: Palpitations, Chest pain as manifestation of blood transfusion reaction Disposition: HOME SELF-CARE Condition: Good Instructions (If sedation given, give patient instructions): Chest Pain (ED), Heart Palpitations (ED) Additional Instructions: Follow-up with your primary care doctor and fleet coordinator next week. Continue previously prescribed medications. Return to the emergency room with any new or concerning symptoms Is patient prescribed a controlled substance at d/c from ED?: No Referrals: [facility],Clinic [Primary Care Provider] - 1-2 days Time of Disposition: 13:43
[2022-03-06 10:04] LABS: Basophils # (A) 0.1 k/uL (0-0.2); Basophils % (A) 1 %; Eosinophils # (A) 0.1 k/uL (0-0.7); Eosinophils % (A) 1 %; HCT 48.8 % (39.0-53.0); HGB 16.5 gm/dL (13.0-17.5); Lymphocytes # (A) 1.6 k/uL (1.0-4.8); Lymphocytes % (A) 17 %; MCH 30.2 pg (25.0-35.0); MCHC 33.8 g/dL (31.0-37.0); MCV 89.4 fL (80.0-100.0); Mean Platelet Volume 8.9; Monocytes # (A) 0.6 k/uL (0-1.0); Monocytes % (A) 6 %; Neutrophils % (A) 73 %; Platelet Count 187 k/uL (150-450); RBC 5.45 m/uL (4.30-5.90); RDW 12.3 % (11.5-15.5); WBC 9.5 k/uL (3.8-10.6)
[2022-03-06 10:16] LABS: INR 1.3 (<1.2); Prothrombin Time 13.2 sec (9.0-12.0)
--- NOTE | 2022-03-06 10:19 | XR ---
EXAMINATION TYPE: XR chest 2V DATE OF EXAM: 03/06/2022 COMPARISON: 06/06/2021 HISTORY: 61-year-old male dysrhythmia TECHNIQUE: PA and lateral views FINDINGS: Heart normal size. Aorta and pulmonary vasculature within normal limits. Hyperinflation. No consolida tion or pleural effusion. Make endplate spondylosis midthoracic spine. IMPRESSION: Hyperinflation may relate to depth of inspiration versus underlying emphysema. Otherwise, no acute ca rdiopulmonary process.
[2022-03-06 10:23] LABS: ALT 18 U/L (4-49); AST 23 U/L (17-59); African American GFR (CKD) >90 (>60 ml/min/1.73 sqM); Albumin 4.2 g/dL (3.5-5.0); Alkaline Phosphatase 119 U/L (38-126); Anion Gap 8 mmol/L; Blood Urea Nitrogen 13 mg/dL (9-20); Calcium 9.1 mg/dL (8.4-10.2); Carbon Dioxide 26 mmol/L (22-30); Chloride 107 mmol/L (98-107); Glucose 115 mg/dL (74-99); Magnesium 1.8 mg/dL (1.6-2.3); Non-African American GFR(CKD) >90 (>60 ml/min/1.73 sqM); Potassium 4.3 mmol/L (3.5-5.1); Sodium 141 mmol/L (137-145); Total Bilirubin 0.9 mg/dL (0.2-1.3); Total Protein 7.3 g/dL (6.3-8.2)
[2022-03-06 14:00] VITALS: BP 123/82; PULSE 77
== END 2022-03-06 13:59 | disposition home or self-care (01) ==
LOC: EC 08:39
DX: T80.89XA Other complications following infusion, transfusion and therapeutic injection, initial encounter (principal); I48.92 Unspecified atrial flutter; I48.91 Unspecified atrial fibrillation; E78.5 Hyperlipidemia, unspecified; I10 Essential (primary) hypertension; Z88.6 Allergy status to analgesic agent; Z87.891 Personal history of nicotine dependence; Z88.8 Allergy status to other drugs, medicaments and biological substances; Z88.7 Allergy status to serum and vaccine; Z79.01 Long term (current) use of anticoagulants; Z79.899 Other long term (current) drug therapy
CPT/HCPCS: 36415; 71046; 80053; 83735; 84484; 85025; 85610; 85730; 93005; 99285

== ENCOUNTER 2022-07-13 06:01 | Day surgery (SDC) | payer OTHER ==
[2022-07-09 15:03] VITALS: BMI 29.8
[2022-07-13] MEDS ORDERED: LACTATED RINGERS 1,000 ML IV SCH (06:09)
[2022-07-13 06:55] VITALS: RESP 16; TEMP 97.5
[2022-07-13] MEDS ORDERED: PROPOFOL 10 MG/ML 20 ML VIAL IV ONE (07:21)
[2022-07-13 07:42] LABS: African American GFR (CKD) >90 (>60 ml/min/1.73 sqM); Anion Gap 7 mmol/L; Blood Urea Nitrogen 15 mg/dL (9-20); Calcium 9.2 mg/dL (8.4-10.2); Carbon Dioxide 30 mmol/L (22-30); Chloride 105 mmol/L (98-107); Glucose 100 mg/dL (74-99); Non-African American GFR(CKD) >90 (>60 ml/min/1.73 sqM); Potassium 4.2 mmol/L (3.5-5.1); Sodium 142 mmol/L (137-145)
--- NOTE | 2022-07-13 07:59 | P.PCN ---
Date of Procedure: 07/13/22 Operative Findings: Cardioversion Report Performing physician Prasanth Estrada M.D. Procedure performed Successful cardioversion of atrial fibrillation to normal sinus mechanism using 200 J at second attempt Indication Symptomatic atrial fibrillation Complication None Level of sedation The procedure was performed under deep sedation using propofol with [employer] in the room Procedure description After obtaining an informed consent the patient was brought to the recovery room. Sedation was introduced using propofol with [employer] in the room. Subsequently the patient cardioverted from atrial fibrillation to normal sinus mechanism using 200 J and first attempt Conclusion Successful cardioversion of atrial fibrillation to normal sinus mechanism using 200 J Postprocedure management Continue the current medical regimen Continue oral anticoagulation Follow-up with the patient
[2022-07-13 09:33] VITALS: BP 108/75; PULSE 52
== END 2022-07-13 09:48 | disposition home or self-care (01) ==
LOC: OR 06:01
PROVIDERS: ATTEND Internal Medicine Interventional Cardiology
DX: I48.0 Paroxysmal atrial fibrillation (principal); J44.9 Chronic obstructive pulmonary disease, unspecified; Z87.891 Personal history of nicotine dependence; I11.0 Hypertensive heart disease with heart failure; I50.32 Chronic diastolic (congestive) heart failure; E78.5 Hyperlipidemia, unspecified; Z79.899 Other long term (current) drug therapy; Z96.653 Presence of artificial knee joint, bilateral; Z82.49 Family history of ischemic heart disease and other diseases of the circulatory system; I42.8 Other cardiomyopathies; Z98.890 Other specified postprocedural states; Z79.1 Long term (current) use of non-steroidal anti-inflammatories (NSAID)
CPT/HCPCS: 92960; 93005; 80048; J2704

== ENCOUNTER 2023-06-14 12:29 | Emergency (ER) | payer OTHER ==
--- NOTE | 2023-06-14 12:49 | ED ---
General Adult HPI - General Source: patient, RN notes reviewed Mode of arrival: ambulatory Limitations: no limitations <David Ibarra - Last Filed: 06/14/23 12:48> - General Source: RN notes reviewed, old records reviewed Mode of arrival: ambulatory Limitations: no limitations - History of Present Illness -: days(s) Location: left, upper extremity Radiation: non-radiation Severity scale (1-10): 4 Quality: stabbing Consistency: constant Improves with: none Worsens with: none Associated Symptoms: denies other symptoms <Hector Martin - Last Filed: 06/24/23 01:15> - General Chief complaint: Wound/Laceration Stated complaint: Hand Injury Time Seen by Provider: 06/14/23 12:30 - History of Present Illness Initial comments: Quick [id number] male presents emerged part complaint of laceration to his left thumb. He is unsure when his last tetanus was. Patient states he cut it on a piece of fence. (David Ibarra) This is a 63-year-old female to the ER for evaluation of left thumb laceration significant left thumb laceration with unsure of last tetanus. Patient has difficulty moving left thumb and severe pain and bleeding (Hector Martin) - Related Data Home Medications Medication Instructions Recorded Confirmed Dabigatran [Pradaxa] 150 mg PO BID@0700,2200 02/28/20 07/09/22 Furosemide [Lasix] 40 mg PO DAILY 03/29/20 07/09/22 Atorvastatin [Lipitor] 40 mg PO DAILY 06/06/21 07/09/22 Ibuprofen [Motrin] 600 mg PO Q4H PRN 06/06/21 07/09/22 Flecainide [Tambocor] 50 mg PO Q12HR 07/09/22 07/09/22 HYDROcodone/APAP 7.5-325MG [[place] 1 tab PO TID PRN 07/09/22 07/09/22 7.5-325] Metoprolol Succinate (ER) [Toprol 25 mg PO DAILY 07/09/22 07/09/22 XL] buPROPion HCL [buPROPion HCL SR] 150 mg PO Q12HR 07/09/22 07/09/22 busPIRone HCL 15 mg PO 0700,1900 07/09/22 07/09/22 QUEtiapine [SEROquel] 100 mg PO HS 07/13/22 07/13/22 Previous Rx's Medication Instructions Recorded amLODIPine [Norvasc] 2.5 mg PO DAILY #30 tab 06/08/21 Cephalexin [Keflex] 500 mg PO Q8HR #21 cap 06/14/23 Allergies Allergy/AdvReac Type Severity Reaction Status Date / Time amiodarone Allergy Rash/Hives Verified 06/14/23 12:47 pneumococcal vaccine Allergy SWELLING Verified 06/14/23 12:47 AT SITE aspirin AdvReac heartburn Verified 06/14/23 12:47 Review of Systems ROS Other: All systems not noted in ROS Statement are negative. <David Ibarra - Last Filed: 06/14/23 12:48> ROS Other: All systems not noted in ROS Statement are negative. <Hector Martin - Last Filed: 06/24/23 01:15> ROS Statement: Those systems with pertinent positive or pertinent negative responses have been documented in the HPI. Past Medical History Past Medical History: Atrial Fibrillation, Hyperlipidemia, Hypertension, Sleep Apnea/CPAP/BIPAP Additional Past Medical History / Comment(s): no need for cpap, past hx kidney stone. chronic back pain History of Any Multi-Drug Resistant Organisms: None Reported Past Surgical History: Cardiac Ablation, Joint Replacement, Orthopedic Surgery Additional Past Surgical History / Comment(s): Cardioversion, cardiac ablation X4, bilateral knee replacements, right ankle. Pain procedures. Past Anesthesia/Blood Transfusion Reactions: No Reported Reaction Past Psychological History: Depression, PTSD Smoking Status: Former smoker Past Alcohol Use History: None Reported Past Drug Use History: Marijuana - Past Family History Mother Family Medical History: Cancer, Thyroid Disorder Additional Family Medical History / Comment(s): Thyroid cancer. Father Family Medical History: AFIB, Congestive Heart Failure (CHF), CVA/TIA, Hypertension <David Ibarra - Last Filed: 06/14/23 12:48> General Exam Limitations: no limitations <David Ibarra - Last Filed: 06/14/23 12:48> General appearance: alert, in no apparent distress Head exam: Present: atraumatic, normocephalic, normal inspection Eye exam: Present: normal appearance, PERRL, EOMI. Absent: scleral icterus, conjunctival injection, periorbital swelling ENT exam: Present: normal exam, mucous membranes moist Neck exam: Present: normal inspection. Absent: tenderness, meningismus, lymphadenopathy Respiratory exam: Present: normal lung sounds bilaterally. Absent: respiratory distress, wheezes, rales, rhonchi, stridor Cardiovascular Exam: Present: regular rate, normal rhythm, normal heart sounds. Absent: systolic murmur, diastolic murmur, rubs, gallop, clicks GI/Abdominal exam: Present: soft, normal bowel sounds. Absent: distended, tenderness, guarding, rebound, rigid Extremities exam: Present: normal inspection, full ROM, normal capillary refill. Absent: tenderness, pedal edema, joint swelling, calf tenderness Back exam: Present: normal inspection Neurological exam: Present: alert, oriented X3, CN II-XII intact Psychiatric exam: Present: normal affect, normal mood Skin exam: Present: warm, dry, intact, normal color. Absent: rash <Hector Martin - Last Filed: 06/24/23 01:15> - General Exam Comments Initial Comments: Visual Physical Exam Vital signs reviewed General: Well-appearing, nontoxic, no acute distress. Head: Normocephalic, atraumatic Eyes: PERRLA, EOMI ENT: Airway patent Chest: Nonlabored breathing Skin: No visual rash, normal skin tone Neuro: Alert and oriented 3 Musculoskeletal: No gross abnormalities (David Ibarra) Course <Hector Martin - Last Filed: 06/24/23 01:15> Vital Signs 06/14/23 06/14/23 12:45 15:13 Temperature 98 F 97.8 F Pulse Rate 89 84 Respiratory 16 18 Rate Blood Pressure 133/91 127/89 O2 Sat by Pulse 96 98 Oximetry - Reevaluation(s) Reevaluation #1: Medical records reviewed (Hector Martin) Reevaluation #2: Patient symptoms improved (Hector Martin) Reevaluation #3: Patient informed of results questions answered (Hector Martin) Reevaluation #4: Was pt. sent in by a medical professional or institution (, PA, ROCK WOOL APPLICATOR, urgent care, hospital, or retirement...) When possible be specific @ -no Did you speak to anyone other than the patient for history (EMS, parent, family, police, friend...)? What history was obtained from this source @ -no Did you review nursing and triage notes (agree or disagree)? Why? @ -agree Are old charts reviewed (outside hosp., previous admission, EMS record, old EKG, old radiological studies, urgent care reports/EKG's, retirement records)? Report findings @ -yes Differential Diagnosis (chest pain, altered mental status, abdominal pain women, abdominal pain men, vaginal bleeding, weakness, fever, dyspnea, syncope, headache, dizziness, GI bleed, back pain, seizure, CVA, palpatations, mental health, musculoskeletal)? @ -prior EKG interpreted by me (3pts min.). @ -no X-rays interpreted by me (1pt min.). @ -no CT interpreted by me (1pt min.). @ -no U/S interpreted by me (1pt. min.). @ -no What testing was considered but not performed or refused? (CT, X-rays, U/S, labs)? Why? @ -none What meds were considered but not given or refused? Why? @ -none Did you discuss the management of the patient with other professionals (professionals i.e. , PA, ROCK WOOL APPLICATOR, lab, RT, psych nurse, adoption social worker, supervisor assembly room, teacher, correctional officer sergeant, insurance case manager)? Give summary @ -no Was smoking cessation discussed for >3mins.? @ -no Was critical care preformed (if so, how long)? @ -no Were there social determinants of health that impacted care today? How? (Homelessness, low income, unemployed, alcoholism, drug addiction, transportatio n, low edu. Level, literacy, decrease access to med. care, skilled nursing, rehab)? @ -none Was there de-escalation of care discussed even if they declined (Discuss DNR or withdrawal of care, Hospice)? DNR status @ -no What co-morbidities impacted this encounter? (DM, HTN, Smoking, COPD, CAD, Cancer, CVA, ARF, Chemo, Hep., AIDS, mental health diagnosis, sleep apnea, morbid obesity)? @ -none Was patient admitted / discharged? Hospital course, mention meds given and route, prescriptions, significant lab abnormalities, going to OR and other pertinent info. @ -63 male to ER with significant left thumb laceration which was repaired here in the ER patient feels well here in the ER placed on antibiotics and can be discharged home Discharge Undiagnosed new problem with uncertain prognosis? @ -no Drug Therapy requiring intensive monitoring for toxicity (Heparin, Nitro, Insulin, Cardizem)? @ -no Were any procedures done? @ -Yes laceration repair Diagnosis/symptom? @ -Left thumb laceration Acute, or Chronic, or Acute on Chronic? @ -Acute Uncomplicated (without systemic symptoms) or Complicated (systemic symptoms)? @ -Complicated Side effects of treatment? @ -no Exacerbation, Progression, or Severe Exacerbation? @ -exacerbation Poses a threat to life or bodily function? How? (Chest pain, [place], MA, pneumonia, PE, COPD, DKA, ARF, appy, cholecystitis, CVA, Diverticulitis, Homicidal, Suicidal, threat to staff... and all critical care pts) @ -no (Hector Martin) Procedures - Laceration Laceration #1 Consent Obtained: verbal consent Indication: laceration Size (cm): 6 Description: linear, stellate, flap, avulsion, irregular Depth: simple, single layer Anesthetic Used: lidocaine 1% Anesthesia Technique: local infiltration Type of Sutures: nylon Size of Sutures: 5-0 Technique: simple, interrupted Complications: pain Patient Tolerated Procedure: well <Hector Martin - Last Filed: 06/24/23 01:15> Medical Decision Making <David Ibarra - Last Filed: 06/14/23 12:48> <Hector Martin - Last Filed: 06/24/23 01:15> - Medical Decision Making I completed the quick note portion of this chart signed David Ibarra PA-C (David Ibarra) 63 male to ER with significant left thumb laceration which was repaired here in the ER patient feels well here in the ER placed on antibiotics and can be discharged home (Hector Martin) Disposition <David Ibarra - Last Filed: 06/14/23 12:48> Is patient prescribed a controlled substance at d/c from ED?: No Time of Disposition: 14:50 <Hector Martin - Last Filed: 06/24/23 01:15> Clinical Impression: Laceration, Laceration of right index finger Disposition: HOME SELF-CARE Condition: Good Instructions (If sedation given, give patient instructions): Care For Your Stitches (ED), Laceration (ED), Finger Laceration (ED) Prescriptions: Cephalexin [Keflex] 500 mg PO Q8HR #21 cap Referrals: Celeste Hair, PAC [Primary Care Provider] - 1-2 days
[2023-06-14] MEDS: DIPH,PERTUS(ACELL)TETVAC-LF 0.5 ML VIAL IM ONE (14:03)
[2023-06-14] MEDS: LIDOCAINE 1% INJ 10MG/ML (20 ML MDV) SQ ONE (14:04)
[2023-06-14] MEDS: CEPHALEXIN 500 MG CAP PO STA (15:11)
[2023-06-14] MEDS: CEPHALEXIN 500MG STARTER PACK 4 CAP BTL PO STA (15:11)
[2023-06-14 15:26] VITALS: BP 127/89; PULSE 84; RESP 18; TEMP 97.8
== END 2023-06-14 15:36 | disposition home or self-care (01) ==
LOC: EC 12:29
DX: S61.210A Laceration without foreign body of right index finger without damage to nail, initial encounter (principal); I48.91 Unspecified atrial fibrillation; I10 Essential (primary) hypertension; G47.30 Sleep apnea, unspecified; E78.5 Hyperlipidemia, unspecified; F32.A Depression, unspecified; F12.90 Cannabis use, unspecified, uncomplicated; Z79.899 Other long term (current) drug therapy; Z79.84 Long term (current) use of oral hypoglycemic drugs; Z88.6 Allergy status to analgesic agent; Z88.7 Allergy status to serum and vaccine; Z88.8 Allergy status to other drugs, medicaments and biological substances; Z87.891 Personal history of nicotine dependence; Z23 Encounter for immunization; W45.8XXA Other foreign body or object entering through skin, initial encounter
CPT/HCPCS: 90715; 99283; 90471; 12002; J2001

== ENCOUNTER 2023-07-05 06:15 | Day surgery (SDC) | payer OTHER ==
[~2023-07-05 06:15] MED LIST changes: +ALPRAZolam 0.25 MG TAB PO PRN; +ALPRAZolam 0.5 MG TAB PO PRN; +NITROGLYCERIN SL TABS 0.4 MG TAB SUBLINGUAL PRN; -SODIUM CHLORIDE 0.9% 1,000 ML IV SCH
[2023-07-05] MEDS: SODIUM CHLORIDE 0.9% 1,000 ML IV ONE (06:51)
[2023-07-05] MEDS: SODIUM CHLORIDE 0.9% 1,000 ML in EMPTY BAG 1 BAG IV SCH (07:02)
[2023-07-05] MEDS: ASPIRIN 81 MG ONE (07:03)
[2023-07-05] MEDS ORDERED: VERAPAMIL 2.5 MG/ML 2 ML AMP ONE (07:11)
[2023-07-05] MEDS ORDERED: LIDOCAINE 1% INJ 10MG/ML (20 ML MDV) ONE (07:12)
[2023-07-05 07:15] VITALS: RESP 16; TEMP 97.8
[2023-07-05] MEDS ORDERED: HEPARIN SODIUM 1,000 UN/ML (10ML VL) ONE (07:27)
[2023-07-05] MEDS: MIDAZOLAM 2 MG/2 ML VIAL IVP ONE ×2 (07:45→07:50)
[2023-07-05] MEDS: LIDOCAINE 1% INJ 10MG/ML (20 ML MDV) SQ ONE (07:46)
[2023-07-05] MEDS: VERAPAMIL SYRINGE (5 MG/10 ML) INTRAARTER ONE (07:46)
[2023-07-05] MEDS: HEPARIN SODIUM 1,000 UN/ML (10ML VL) IV ONE (07:51)
[2023-07-05] MEDS: IOPAMIDOL-370 100ML BTL INJ ONE (07:59)
[2023-07-05] MEDS ORDERED: SODIUM CHLORIDE 0.9% 1,000 ML IV SCH (08:00)
[2023-07-05] MEDS ORDERED: RX INFO: IV CONTRAST WAS GIVEN 1 EACH MISC MISCELLANE PRN (08:00)
--- NOTE | 2023-07-05 08:03 | P.PCN ---
Date of Procedure: 07/05/23 Operative Findings: CARDIAC CATHETERIZATION PERFORMING PHYSICIAN: Prasanth Estrada MD, RPVI PROCEDURE PERFORMED: 1. Selective right and left coronary angiogram 2. Left heart catheterization 3. Ultrasound-guided access of the right radial artery INDICATION: Cardiomyopathy COMPLICATION: None APPROACH: Right radial artery LEVEL OF SEDATION: Moderate with a sedation length of 12 minutes PROCEDURE DESCRIPTION: After obtaining an informed consent, the patient was brought to cardiac label rewinder. Local anesthesia was performed using lidocaine subcutaneously. The right radial artery was cannulated using Seldinger technique, the guidewire passed easily, following that we advanced a 5-Somali sheath dilator assembly, the wire and dilator were removed and sheath was flushed. Following that, 2 mg of verapamil along with 5000 unit heparin were given. Selective right and left coronary angiogram using a 6-Somali JR4 and JL 3.5 catheters. Following that we did left heart catheterization using 6-Somali pigtail catheter. The procedure was completed there was no complication. SELECTIVE CORONARY ANGIOGRAM: The right coronary artery: Large-caliber vessel and a dominant vessel and appears to be angiographically normal Left main: Is angiographically normal with bifurcates into an LCx and LAD The left circumflex: Large-caliber vessel nondominant vessel. The LCx is angiographically normal with gives rise into OM1 which works as a ramus intermedius and OM 2 which appears to be angiographically normal. Left circumflex system overall is normal The left anterior descending artery: Is normal. Gives rise into the first and second diagonal branches and both appear to be angiographically normal HEMODYNAMICS: LVEDP was 5 mmHg with no significant gradient across aortic valve CONCLUSION: 1. Normal coronary angiogram 2. Normal left-sided filling pressure POSTPROCEDURE MANAGEMENT: Medical treatment
[2023-07-05 11:34] VITALS: BP 110/83; PULSE 79
== END 2023-07-05 12:05 | disposition home or self-care (01) ==
LOC: CATHCVL 06:15
PROVIDERS: ATTEND Internal Medicine Interventional Cardiology
DX: I25.10 Atherosclerotic heart disease of native coronary artery without angina pectoris (principal); I77.819 Aortic ectasia, unspecified site; I48.21 Permanent atrial fibrillation; I10 Essential (primary) hypertension; E78.5 Hyperlipidemia, unspecified; I42.9 Cardiomyopathy, unspecified; I38 Endocarditis, valve unspecified; F17.210 Nicotine dependence, cigarettes, uncomplicated; Z82.49 Family history of ischemic heart disease and other diseases of the circulatory system; Z79.899 Other long term (current) drug therapy
CPT/HCPCS: 93458; 76937; J2250; J2001; J1644; Q9967

== ENCOUNTER 2024-02-17 15:30 | Emergency (ER) | payer OTHER ==
--- NOTE | 2024-02-17 16:20 | ED ---
Recheck HPI - General Chief Complaint: Recheck/Abnormal Lab/Rx Stated Complaint: Recheck-flank pain Time Seen by Provider: 02/17/24 15:54 Source: patient, RN notes reviewed, old records reviewed Mode of arrival: ambulatory Limitations: no limitations - History of Present Illness Initial Comments: This is a 63-year-old male to ER for recheck of blood in the urine. Patient has had blood in the urine with flank pain, patient placed on antibiotics concern for recurrent kidney stone which she has history of kidney stones. Patient states he did have right-sided flank pain which is now gone MD Complaint: abnormal lab (Blood in the urine with painful urination) -: days(s) Returns Today for: other (Blood in the urine) Symptoms Since Prior Visit: worsening pain Associated Symptoms: none Treatments Prior to Arrival: Given Antibiotics on - Related Data Home Medications Medication Instructions Recorded Confirmed Dabigatran [Pradaxa] 150 mg PO BID@0700,2200 02/28/20 07/05/23 Furosemide [Lasix] 40 mg PO DAILY 03/29/20 07/02/23 Atorvastatin [Lipitor] 40 mg PO DAILY 06/06/21 07/02/23 HYDROcodone/APAP 7.5-325MG [[place] 1 tab PO TID PRN 07/09/22 07/05/23 7.5-325] Metoprolol Succinate (ER) [Toprol 50 mg PO DAILY 07/09/22 07/02/23 XL] buPROPion HCL [buPROPion HCL SR] 300 mg PO DAILY 07/09/22 07/02/23 busPIRone HCL 15 mg PO 0700,1900 07/09/22 07/02/23 QUEtiapine [SEROquel] 100 mg PO HS 07/13/22 07/02/23 lisinopriL [Zestril] 5 mg PO DAILY 07/02/23 07/02/23 Previous Rx's Medication Instructions Recorded Ciprofloxacin HCl [Cipro] 500 mg PO BID 7 Days #14 tab 02/17/24 Allergies Allergy/AdvReac Type Severity Reaction Status Date / Time amiodarone Allergy Rash/Hives Verified 02/17/24 15:41 pneumococcal vaccine Allergy SWELLING Verified 02/17/24 15:41 AT SITE aspirin AdvReac heartburn Verified 02/17/24 15:41 Review of Systems ROS Statement: Those systems with pertinent positive or pertinent negative responses have been documented in the HPI. ROS Other: All systems not noted in ROS Statement are negative. Past Medical History Past Medical History: Atrial Fibrillation, Heart Failure, Hyperlipidemia, Hypertension, Sleep Apnea/CPAP/BIPAP Additional Past Medical History / Comment(s): no need for cpap, past hx kidney stone. chronic back pain History of Any Multi-Drug Resistant Organisms: None Reported Past Surgical History: Cardiac Ablation, Joint Replacement, Orthopedic Surgery Additional Past Surgical History / Comment(s): Cardioversion, cardiac ablation X4, bilateral knee replacements, right ankle. Pain procedures. Past Anesthesia/Blood Transfusion Reactions: No Reported Reaction Past Psychological History: Depression, PTSD Smoking Status: Former smoker Past Alcohol Use History: None Reported Past Drug Use History: Marijuana - Past Family History Mother Family Medical History: Cancer, Thyroid Disorder Additional Family Medical History / Comment(s): Thyroid cancer. Father Family Medical History: AFIB, Congestive Heart Failure (CHF), CVA/TIA, Hypertension General Exam Limitations: no limitations General appearance: alert, in no apparent distress Head exam: Present: atraumatic, normocephalic, normal inspection Eye exam: Present: normal appearance, PERRL, EOMI. Absent: scleral icterus, conjunctival injection, periorbital swelling ENT exam: Present: normal exam, mucous membranes moist Neck exam: Present: normal inspection. Absent: tenderness, meningismus, lymphadenopathy Respiratory exam: Present: normal lung sounds bilaterally. Absent: respiratory distress, wheezes, rales, rhonchi, stridor Cardiovascular Exam: Present: regular rate, normal rhythm, normal heart sounds. Absent: systolic murmur, diastolic murmur, rubs, gallop, clicks GI/Abdominal exam: Present: soft, normal bowel sounds. Absent: distended, tenderness, guarding, rebound, rigid Extremities exam: Present: normal inspection, full ROM, normal capillary refill. Absent: tenderness, pedal edema, joint swelling, calf tenderness Back exam: Present: normal inspection Neurological exam: Present: alert, oriented X3, CN II-XII intact Psychiatric exam: Present: normal affect, normal mood Skin exam: Present: warm, dry, intact, normal color. Absent: rash Course Vital Signs 02/17/24 02/17/24 02/17/24 15:38 18:17 19:34 Temperature 98.2 F 98.1 F 98.0 F Pulse Rate 48 L 77 71 Respiratory 20 18 18 Rate Blood Pressure 109/62 119/79 115/72 O2 Sat by Pulse 95 97 97 Oximetry - Reevaluation(s) Reevaluation #1: 02/17/24 16:29 Medical records reviewed Reevaluation #2: 02/17/24 19:24 Patient has improved symptoms here in the ER Reevaluation #3: 02/17/24 19:24 Patient informed of results and questions answered Reevaluation #4: Was pt. sent in by a medical professional or institution (, [facility], PRINTER HELPER, urgent care, hospital, or skilled nursing...) When possible be specific @ -no Did you speak to anyone other than the patient for history (EMS, parent, family, police, friend...)? What history was obtained from this source @ -no Did you review nursing and triage notes (agree or disagree)? Why? @ -agree Are old charts reviewed (outside hosp., previous admission, EMS record, old EKG, old radiological studies, urgent care reports/EKG's, skilled nursing records)? Report findings @ -yes Differential Diagnosis (chest pain, altered mental status, abdominal pain women, abdominal pain men, vaginal bleeding, weakness, fever, dyspnea, syncope, headache, dizziness, GI bleed, back pain, seizure, CVA, palpatations, mental health, musculoskeletal)? @ -prior EKG interpreted by me (3pts min.). @ -no X-rays interpreted by me (1pt min.). @ -no CT interpreted by me (1pt min.). @ -yes negative for acute disease U/S interpreted by me (1pt. min.). @ -no What testing was considered but not performed or refused? (CT, X-rays, U/S, labs)? Why? @ -none What meds were considered but not given or refused? Why? @ -none Did you discuss the management of the patient with other professionals (professionals i.e. [facility] Justin, PRINTER HELPER, lab, RT, psych nurse, social work professor, nursing educator, teacher, guest services officer, home health care case manager)? Give summary @ -no Was smoking cessation discussed for >3mins.? @ -no Was critical care preformed (if so, how long)? @ -no Were there social determinants of health that impacted care today? How? (Homelessness, low income, unemployed, alcoholism, drug addiction, transportation, low edu. Level, literacy, decrease access to med. care, usp, rehab)? @ -none Was there de-escalation of care discussed even if they declined (Discuss DNR or withdrawal of care, Hospice)? DNR status @ -no What co-morbidities impacted this encounter? (DM, HTN, Smoking, COPD, CAD, Ca ncer, CVA, ARF, Chemo, Hep., AIDS, mental health diagnosis, sleep apnea, morbid obesity)? @ -none Was patient admitted / discharged? Hospital course, mention meds given and route, prescriptions, significant lab abnormalities, going to OR and other pertinent info. @ - 63 male to ER patient has significant cystitis hemorrhagic cystitis here in the ER UTI with hematuria. Patient given antibiotics here placed on antibiotics at home and can be discharged Discharge Undiagnosed new problem with uncertain prognosis? @ -no Drug Therapy requiring intensive monitoring for toxicity (Heparin, Nitro, In sulin, Cardizem)? @ -no Were any procedures done? @ -no Diagnosis/symptom? @ -Hematuria Acute, or Chronic, or Acute on Chronic? @ -Acute Uncomplicated (without systemic symptoms) or Complicated (systemic symptoms)? @ -Complicated Side effects of treatment? @ -no Exacerbation, Progression, or Severe Exacerbation? @ -exacerbation Poses a threat to life or bodily function? How? (Chest pain, [place], [place], pneumonia, PE, COPD, DKA, ARF, appy, cholecystitis, CVA, Diverticulitis, Homicidal, Suicidal, threat to staff... and all critical care pts) @ -no Reevaluation #5: Differential Abdominal Pain Men: Appendicitis, cholecystitis, diverticulosis, ischemic bowel, pancreatitis, hepatitis, UTI, gastroenteritis, AAA, incarcerated hernia, bowel obstruction, constipation, inflammatory bowel, hepatitis, peptic ulcer disease, splenic infarction, perforated viscus, testicular torsion, this is not meant to be an all-inclusive list Medical Decision Making - Medical Decision Making 63 male to ER patient has significant cystitis hemorrhagic cystitis here in the ER UTI with hematuria. Patient given antibiotics here placed on antibiotics at home and can be discharged - Lab Data Result diagrams: 02/17/24 16:30 02/17/24 16:30 Lab Results 02/17/24 02/17/24 02/17/24 Range/Units 16:30 16:30 16:30 WBC 12.7 H (3.8-10.6) k/uL RBC 4.77 (4.30-5.90) m/uL Hgb 15.1 (13.0-17.5) gm/dL Hct 45.3 (39.0-53.0) % MCV 95.0 (80.0-100.0) fL MCH 31.6 (25.0-35.0) pg MCHC 33.3 (31.0-37.0) g/dL RDW 12.3 (11.5-15.5) % Plt Count 199 (150-450) k/uL MPV 8.4 Neutrophils % 70 % Lymphocytes % 20 % Monocytes % 7 % Eosinophils % 1 % Basophils % 0 % Neutrophils # 8.9 H (1.3-7.7) k/uL Lymphocytes # 2.5 (1.0-4.8) k/uL Monocytes # 0.9 (0-1.0) k/uL Eosinophils # 0.1 (0-0.7) k/uL Basophils # 0.1 (0-0.2) k/uL PT 12.5 (10.0-12.5) sec INR 1.2 H (<1.2) APTT 40.7 H (22.0-30.0) sec Sodium (137-145) mmol/L Potassium (3.5-5.1) mmol/L Chloride (98-107) mmol/L Carbon Dioxide (22-30) mmol/L Anion Gap mmol/L BUN (9-20) mg/dL Creatinine (0.66-1.25) mg/dL Est GFR (CKD-EPI)AfAm (>60 ml/min/1.73 sqM) Est GFR (CKD-EPI)NonAf (>60 ml/min/1.73 sqM) Glucose (74-99) mg/dL Calcium (8.4-10.2) mg/dL Total Bilirubin (0.2-1.3) mg/dL AST (17-59) U/L ALT (4-49) U/L Alkaline Phosphatase (38-126) U/L Total Protein (6.3-8.2) g/dL Albumin (3.5-5.0) g/dL Amylase (30-110) U/L Lipase (23-300) U/L Urine Color Dark Brown Urine Appearance Turbid (Clear) Urine pH 6.0 (5.0-8.0) Ur Specific [place] >1.050 H (1.001-1.035) Urine Protein 2+ H (Negative) Urine Glucose (UA) 4+ H (Negative) Urine Ketones Trace H (Negative) Urine Blood Large H (Negative) Urine Nitrite Positive (Negative) Urine Bilirubin Negative (Negative) Urine Urobilinogen <2.0 (<2.0) mg/dL Ur Leukocyte Esterase Large H (Negative) Urine RBC >182 H (0-5) /hpf Urine WBC >182 H (0-5) /hpf 02/17/24 Range/Units 16:30 WBC (3.8-10.6) k/uL RBC (4.30-5.90) m/uL Hgb (13.0-17.5) gm/dL Hct (39.0-53.0) % MCV (80.0-100.0) fL MCH (25.0-35.0) pg MCHC (31.0-37.0) g/dL RDW (11.5-15.5) % Plt Count (150-450) k/uL MPV Neutrophils % % Lymphocytes % % Monocytes % % Eosinophils % % Basophils % % Neutrophils # (1.3-7.7) k/uL Lymphocytes # (1.0-4.8) k/uL Monocytes # (0-1.0) k/uL Eosinophils # (0-0.7) k/uL Basophils # (0-0.2) k/uL PT (10.0-12.5) sec INR (<1.2) APTT (22.0-30.0) sec Sodium 139 (137-145) mmol/L Potassium 4.1 (3.5-5.1) mmol/L Chloride 109 H (98-107) mmol/L Carbon Dioxide 25 (22-30) mmol/L Anion Gap 5 mmol/L BUN 18 (9-20) mg/dL Creatinine 1.10 (0.66-1.25) mg/dL Est GFR (CKD-EPI)AfAm 82 (>60 ml/min/1.73 sqM) Est GFR (CKD-EPI)NonAf 71 (>60 ml/min/1.73 sqM) Glucose 86 (74-99) mg/dL Calcium 9.2 (8.4-10.2) mg/dL Total Bilirubin 1.5 H (0.2-1.3) mg/dL AST 24 (17-59) U/L ALT 15 (4-49) U/L Alkaline Phosphatase 108 (38-126) U/L Total Protein 7.2 (6.3-8.2) g/dL Albumin 4.2 (3.5-5.0) g/dL Amylase 37 (30-110) U/L Lipase 104 (23-300) U/L Urine Color Urine Appearance (Clear) Urine pH (5.0-8.0) Ur Specific [place] (1.001-1.035) Urine Protein (Negative) Urine Glucose (UA) (Negative) Urine Ketones (Negative) Urine Blood (Negative) Urine Nitrite (Negative) Urine Bilirubin (Negative) Urine Urobilinogen (<2.0) mg/dL Ur Leukocyte Esterase (Negative) Urine RBC (0-5) /hpf Urine WBC (0-5) /hpf - Radiology Data Radiology results: report reviewed (CT abdomen pelvis negative for acute disease), image reviewed Disposition Clinical Impression: UTI (urinary tract infection), Cystitis, Hematuria Disposition: HOME SELF-CARE Condition: Good Instructions (If sedation given, give patient instructions): Urinary Tract Infection in Men (ED) Prescriptions: Ciprofloxacin HCl [Cipro] 500 mg PO BID 7 Days #14 tab Is patient prescribed a controlled substance at d/c from ED?: No Referrals: Manjinder Brock MD [STAFF PHYSICIAN] - 1-2 days Time of Disposition: 19:20
[2024-02-17 16:50] LABS: Basophils # (A) 0.1 k/uL (0-0.2); Basophils % (A) 0 %; Eosinophils # (A) 0.1 k/uL (0-0.7); Eosinophils % (A) 1 %; HCT 45.3 % (39.0-53.0); HGB 15.1 gm/dL (13.0-17.5); Lymphocytes # (A) 2.5 k/uL (1.0-4.8); Lymphocytes % (A) 20 %; MCH 31.6 pg (25.0-35.0); MCHC 33.3 g/dL (31.0-37.0); Mean Platelet Volume 8.4; Monocytes # (A) 0.9 k/uL (0-1.0); Monocytes % (A) 7 %; Neutrophils # (A) 8.9 k/uL (1.3-7.7); Neutrophils % (A) 70 %; Platelet Count 199 k/uL (150-450); RBC 4.77 m/uL (4.30-5.90); RDW 12.3 % (11.5-15.5); WBC 12.7 k/uL (3.8-10.6)
[2024-02-17 17:02] LABS: ALT 15 U/L (4-49); AST 24 U/L (17-59); African American GFR (CKD) 82 (>60 ml/min/1.73 sqM); Albumin 4.2 g/dL (3.5-5.0); Alkaline Phosphatase 108 U/L (38-126); Amylase 37 U/L (30-110); Anion Gap 5 mmol/L; Blood Urea Nitrogen 18 mg/dL (9-20); Calcium 9.2 mg/dL (8.4-10.2); Carbon Dioxide 25 mmol/L (22-30); Chloride 109 mmol/L (98-107); Glucose 86 mg/dL (74-99); Lipase 104 U/L (23-300); Non-African American GFR(CKD) 71 (>60 ml/min/1.73 sqM); Potassium 4.1 mmol/L (3.5-5.1); Sodium 139 mmol/L (137-145); Total Bilirubin 1.5 mg/dL (0.2-1.3); Total Protein 7.2 g/dL (6.3-8.2)
[2024-02-17 17:03] LABS: INR 1.2 (<1.2); Partial Thromboplastin Time 40.7 sec (22.0-30.0); Prothrombin Time 12.5 sec (10.0-12.5)
[2024-02-17] MEDS: SODIUM CHLORIDE 0.9% 1,000 ML IV STA (17:17)
[2024-02-17] MEDS: KETOROLAC 15 MG/ML 1 ML VIAL IVP STA (17:18)
[2024-02-17 17:20] LABS: Appearance,Urine Turbid (Clear); Bilirubin,Urine Negative (Negative); Blood,Urine Large (Negative); Color,Urine Dark Brown; Glucose,Urine (UA) 4+ (Negative); Ketones,Urine Trace (Negative); Leukocyte Esterase,Urine Large (Negative); Nitrite,Urine Positive (Negative); Protein,Urine 2+ (Negative); RBC,Urine >182 /hpf (0-5); Urobilinogen,Urine <2.0 mg/dL (<2.0); WBC,Urine >182 /hpf (0-5)
[2024-02-17 17:23] LABS: Specific Gravity,Urine >1.050 (1.001-1.035)
--- NOTE | 2024-02-17 18:14 | CT ---
EXAMINATION TYPE: CT abdomen pelvis wo con DATE OF EXAM: 02/17/2024 5:42 PM COMPARISON: None. CLINICAL INDICATION: Male, 63 years old with history of abdominal pain, flank pain and blood in the u rine TECHNIQUE: Axial images were obtained from above the diaphragm to the pubic rami in the axial plane a t 5 mm thick sections. Reconstructed images are reviewed on the computer in the coronal plane. CONTRAST: mL of . Study performed without Oral Contrast DLP: 873.5 mGycm, Automated exposure control for dose reduction was used. FINDINGS: Limited CT sections are obtained the lung bases. The lung bases are clear. CT ABDOMEN: Liver: Normal Spleen: Normal Pancreas: Normal Adrenal glands: The adrenal glands are normal. Gallbladder: Normal Kidneys: No masses are evident. No hydronephrosis is present. No cysts are present. No renal stone s evident. Aorta: Vascular calcification is within the aorta. Inferior vena cava: Normal. CT PELVIS: Loops of bowel within the abdomen and pelvis are normal. Multiple diverticuli are present without acu te diverticulitis. Study is without oral contrast. Appendix: Normal as visualized. Urinary bladder: Normal. Genitourinary structures: Prostate is unremarkable. Osseous structures: No suspicious lytic or sclerotic lesions. Facet hypertrophy and ligamentum flavum laxity is present with spinal canal stenosis likely present at the L4 level. L2-3 spinal canal steno sis may be present IMPRESSION: 1. Diverticulosis without acute diverticulitis. 2. No renal or ureteral stones identified. 3. Spinal canal stenosis may be present L2-3 and L3-4. [facility], , 02/17/2024 6:11 PM
[2024-02-17 18:19] VITALS: RESP 18
[2024-02-17] MEDS: CEPHALEXIN 500MG STARTER PACK 4 CAP BTL PO STA (19:29)
[2024-02-17] MEDS: CEPHALEXIN 500 MG CAP PO STA (19:29)
[2024-02-17 19:36] VITALS: BP 115/72; PULSE 71; TEMP 98
== END 2024-02-17 19:39 | disposition home or self-care (01) ==
LOC: EC 15:30 → SUPCPDRO 15:30 → EC 19:39
DX: N39.0 Urinary tract infection, site not specified (principal); Z88.6 Allergy status to analgesic agent; Z88.7 Allergy status to serum and vaccine; Z88.8 Allergy status to other drugs, medicaments and biological substances; Z87.891 Personal history of nicotine dependence
CPT/HCPCS: 36415; 80053; 82150; 83690; 85025; 85610; 85730; 81001; 74176; 99284; 96365; 96375; J0696; J1885